=== PATIENT | female | born 1950 | race Caucasian/White ===

== ENCOUNTER 2017-08-01 01:42 | Emergency (ER) | payer MEDICARE, MEDICAID ==
[~2017-08-01] VITALS: Ht 160 cm; Wt 59.1 kg
[~2017-08-01 01:42] MED LIST: ATEN50TA PO; LEVO25TA2 PO; LISI1TAB13 PO; LORA-269 PO; OMEP20CA10 PO
[2017-08-01] MEDS ORDERED: ondansetron 4mg rapidly disintigrating tab PO ONE (01:50)
[2017-08-01] MEDS ORDERED: mag hydrox/Alum hydrox/simeth 30ml oral suspension PO ONE (01:50)
[2017-08-01] MEDS ORDERED: famotidine 20mg tablet PO ONE (01:50)
[2017-08-01] MEDS ORDERED: HYDROcodone/acetaminophen 5mg/325mg tablet PO ONE (01:50)
[2017-08-01 02:26] LABS: BASOPHILS % (AUTO) 0.1 % (0-1); EOSINOPHILS # (AUTO) 0.1 X10'3 (0-0.9); EOSINOPHILS % (AUTO) 0.8 % (0-6); HEMATOCRIT 40.2 % (35.0-45.0); HEMOGLOBIN 13.3 g/dl (12.0-16.0); LYMPHOCYTES # (AUTO) 1.3 X10'3 (1.1-4.8); LYMPHOCYTES % (AUTO) 13.5 % (21-51); MEAN CORPUSCULAR HEMOGLOBIN 30.5 PG (27.0-31.0); MEAN CORPUSCULAR VOLUME 92.4 FL (78-98); MEAN PLATELET VOLUME 7.8 FL (7.4-10.4); MONOCYTES # (AUTO) 0.3 X10'3 (0-0.9); MONOCYTES % (AUTO) 3.6 % (2-12); NEUTROPHILS # (AUTO) 7.9 X10'3 (1.8-7.7); PLATELET COUNT 416 X10'3 (140-440); RED BLOOD COUNT 4.35 X10'6 (4.20-5.60); RED CELL DISTRIBUTION WIDTH 15.8 % (11.5-14.5); WHITE BLOOD COUNT 9.6 X10'3 (4.5-11.0)
[2017-08-01 02:45] LABS: ALANINE AMINOTRANSFERASE 50 U/L (12-78); ALBUMIN 3.2 G/DL (3.4-5.0); ALBUMIN/GLOBULIN RATIO 0.6 (1.1-1.5); ALKALINE PHOSPHATASE 132 IU/L (46-116); ANION GAP 12 (8-16); ASPARTATE AMINO TRANSFERASE 52 U/L (10-37); BILIRUBIN,TOTAL 0.4 MG/DL (0.1-1.0); BLOOD UREA NITROGEN 12 MG/DL (7-18); CALCIUM 9.2 MG/DL (8.5-10.1); CHLORIDE 95 MMOL/L (99-107); GLUCOSE 125 MG/DL (70-104); LIPASE 248 U/L (73-393); POTASSIUM 3.5 MMOL/L (3.5-5.1); SODIUM 131 MMOL/L (135-145); TOTAL CARBON DIOXIDE 23.9 MMOL/L (24-32); TOTAL PROTEIN 8.2 G/DL (6.4-8.2); TROPONIN I < 0.04 NG/ML (0.0-0.05); eGFR 55 ML/MIN
[2017-08-01] MEDS ORDERED: proCHLORperazine 10 MG/2 ml inj IV ONE (02:45)
[2017-08-01] MEDS ORDERED: normal saline 1000ml 1,000 ML IV ONE (02:50)
[2017-08-01 02:59] LABS: CLARITY,URINE Clear (Clear); COLOR,URINE Yellow (Yellow); GLUCOSE, URINE Negative (Neg); KETONES,URINE 40 mg/dl (Neg); LEUKOCYTE ESTERASE ,URINE Small (Neg); NITRITES, URINE Negative (Neg); OCCULT BLOOD,URINE Negative (Neg); PROTEIN,URINE 30 mg/dl (Neg); UA COLLECTION TYPE STRAIGHT CATH
[2017-08-01 03:07] LABS: AMORPHOUS PHOSPHATES 4+; BACTERIA,URINE FEW /HPF (Neg); MUCUS STRANDS NONE SEEN /LPF (Neg); RBC,URINE NONE SEEN /HPF (0-2); SQUAMOUS EPITHELIAL CELL,UR NONE SEEN /LPF (FEW); WBC,URINE 0-4 /HPF (0-4)
[2017-08-01 05:09] VITALS: BP 190/109
== END 2017-08-01 05:12 | disposition home or self-care (01) ==
LOC: ER 01:42
DX: R10.84 Generalized abdominal pain (principal); R11.2 Nausea with vomiting, unspecified; I11.0 Hypertensive heart disease with heart failure; I50.9 Heart failure, unspecified; K21.9 Gastro-esophageal reflux disease without esophagitis; F32.9 Major depressive disorder, single episode, unspecified; E78.00 Pure hypercholesterolemia, unspecified; E03.9 Hypothyroidism, unspecified; M19.90 Unspecified osteoarthritis, unspecified site; F12.10 Cannabis abuse, uncomplicated; Z86.73 Personal history of transient ischemic attack (TIA), and cerebral infarction without residual deficits; Z90.49 Acquired absence of other specified parts of digestive tract; Z88.8 Allergy status to other drugs, medicaments and biological substances; Z79.899 Other long term (current) drug therapy
CPT/HCPCS: 36415; 71045; 74176; 80053; 81001; 83605; 83690; 84484; 85025; 87088; 93005; 96361; 96374; 99285; J0780; J7030

== ENCOUNTER 2017-08-31 14:00 | Inpatient (IN) | payer MEDICARE, MEDICAID ==
[~2017-08-31] VITALS: Ht 160 cm; Wt 56.8 kg
[2017-08-31] MEDS ORDERED: LORazepam 2 mg/ml vial IM ONE (15:10)
[2017-08-31] MEDS ORDERED: CLIN-80 PO (16:13)
[2017-08-31 16:29] LABS: BASOPHILS % (AUTO) 0.1 % (0-1); EOSINOPHILS % (AUTO) 0.1 % (0-6); HEMATOCRIT 37.7 % (35.0-45.0); HEMOGLOBIN 12.7 g/dl (12.0-16.0); LYMPHOCYTES # (AUTO) 0.3 X10'3 (1.1-4.8); LYMPHOCYTES % (AUTO) 2.9 % (21-51); MEAN CORPUSCULAR HEMOGLOBIN 31.3 PG (27.0-31.0); MEAN CORPUSCULAR HGB CONC 33.8 % (33.0-36.5); MEAN CORPUSCULAR VOLUME 92.8 FL (78-98); MEAN PLATELET VOLUME 9.3 FL (7.4-10.4); MONOCYTES # (AUTO) 0.2 X10'3 (0-0.9); NEUTROPHILS % (AUTO) 94.9 % (42-75); PLATELET COUNT 127 X10'3 (140-440); RED BLOOD COUNT 4.07 X10'6 (4.20-5.60); RED CELL DISTRIBUTION WIDTH 16.2 % (11.5-14.5); WHITE BLOOD COUNT 11.6 X10'3 (4.5-11.0)
[2017-08-31 16:39] LABS: INR 1.1 INR; PARTIAL THROMBOPLASTIN TIME 31 SECONDS (22-32); PROTHROMBIN TIME 11.8 SECONDS (9.0-12.0)
[2017-08-31 16:43] LABS: ALANINE AMINOTRANSFERASE 39 U/L (12-78); ALBUMIN 2.4 G/DL (3.4-5.0); ALBUMIN/GLOBULIN RATIO 0.6 (1.1-1.5); ALKALINE PHOSPHATASE 97 IU/L (46-116); ANION GAP 12 (8-16); ASPARTATE AMINO TRANSFERASE 38 U/L (10-37); BILIRUBIN,TOTAL 0.7 MG/DL (0.1-1.0); BLOOD UREA NITROGEN 37 MG/DL (7-18); CALCIUM 7.8 MG/DL (8.5-10.1); CHLORIDE 100 MMOL/L (99-107); CREATININE 2.18 MG/DL (0.40-0.90); GLUCOSE 85 MG/DL (70-104); POTASSIUM 4.6 MMOL/L (3.5-5.1); SODIUM 137 MMOL/L (135-145); TOTAL PROTEIN 6.5 G/DL (6.4-8.2); eGFR 22 ML/MIN
[2017-08-31] MEDS ORDERED: normal saline 1000ML IV soln IVB ONE ×3 (17:05→22:00)
[2017-08-31 17:20] LABS: TOTAL CELLS COUNTED 100
[2017-08-31 17:21] LABS: ANISOCYTOSIS 1+; PLATELET ESTIMATE DECREASED
[2017-08-31] MEDS ORDERED: dextrose 5%-1/2 normal saline 1,000 ML IV SCH (17:59)
[2017-08-31] MEDS ORDERED: magnesium 2GM in 50ml NS 50 ML IV PRN (18:00)
[2017-08-31] MEDS ORDERED: potassium Cl 40MEQ/NS 500ml 500 ML IV PRN ×2 (18:00)
[2017-08-31] MEDS ORDERED: magnesium 4gm in 100ml NS 100 ML IV PRN (18:00)
[2017-08-31] MEDS ORDERED: potassium Cl 20 mEq SR tablet PO PRN (18:00)
[2017-08-31] MEDS ORDERED: aspirin 325mg tablet PO ONE (18:00)
[2017-08-31] MEDS ORDERED: magnesium Cl slow-release 64mg tablet PO PRN (18:00)
[2017-08-31] MEDS ORDERED: gabapentin 300mg capsule PO ONE (18:00)
[2017-08-31] MEDS: morphine 2 MG/ML inj. syringe IV PRN (18:30)
[2017-08-31] MEDS ORDERED: vancomycin/NS 1 GM ADD-VANTAGE 250 ML IV SCH (20:00)
[2017-08-31] MEDS: atenolol 50mg tablet PO SCH (20:00)
[2017-08-31] MEDS: vancomycin/NS 1 GM ADD-VANTAGE 250 ML IV SCH (21:49)
[2017-08-31] MEDS: normal saline 1000ml 1,000 ML IV SCH (22:19)
[2017-08-31] MEDS: heparin, porcine 5000 units/ml vial SQ SCH (22:34)
[2017-08-31 22:58] LABS: CLARITY,URINE CLOUDY (Clear); COLOR,URINE AMBER (Yellow); GLUCOSE, URINE NEGATIVE (Neg); KETONES,URINE NEGATIVE (Neg); LEUKOCYTE ESTERASE ,URINE NEGATIVE (Neg); NITRITES, URINE NEGATIVE (Neg); OCCULT BLOOD,URINE SMALL (Neg); PH,URINE 5.5 (4.8-8.0); PROTEIN,URINE 30 mg/dl (Neg)
[2017-08-31 23:00] LABS: UA COLLECTION TYPE FOLEY CATH
[2017-08-31 23:06] LABS: BACTERIA,URINE NONE SEEN /HPF (Neg); MUCUS STRANDS NONE SEEN /LPF (Neg); RBC,URINE 0-2 /HPF (0-2); SQUAMOUS EPITHELIAL CELL,UR NONE SEEN /LPF (FEW); WBC,URINE 0-4 /HPF (0-4)
[2017-08-31 23:07] LABS: AMORPHOUS URATES 2+; TRANSITIONAL EPI CELLS,URINE MODERATE /HPF
[2017-08-31 23:31] LABS: TROPONIN I < 0.04 NG/ML (0.0-0.05)
[2017-08-31] MEDS ORDERED: NORepinephrine 8mg/ 250ml NS 250 ML IV PRN (23:59)
[2017-09-01 03:00] LABS: BASOPHILS % (AUTO) 0 % (0-1); EOSINOPHILS # (AUTO) 0.5 X10'3 (0-0.9); EOSINOPHILS % (AUTO) 6.7 % (0-6); HEMATOCRIT 31.4 % (35.0-45.0); HEMOGLOBIN 10.8 g/dl (12.0-16.0); LYMPHOCYTES # (AUTO) 0.3 X10'3 (1.1-4.8); LYMPHOCYTES % (AUTO) 3.7 % (21-51); MEAN CORPUSCULAR HEMOGLOBIN 31.5 PG (27.0-31.0); MEAN CORPUSCULAR HGB CONC 34.2 % (33.0-36.5); MEAN PLATELET VOLUME 9.4 FL (7.4-10.4); MONOCYTES # (AUTO) 0.2 X10'3 (0-0.9); NEUTROPHILS # (AUTO) 6.2 X10'3 (1.8-7.7); NEUTROPHILS % (AUTO) 86.6 % (42-75); PLATELET COUNT 99 X10'3 (140-440); RED BLOOD COUNT 3.42 X10'6 (4.20-5.60); WHITE BLOOD COUNT 7.1 X10'3 (4.5-11.0)
[2017-09-01 03:15] LABS: ALANINE AMINOTRANSFERASE 40 U/L (12-78); ALBUMIN 1.7 G/DL (3.4-5.0); ALBUMIN/GLOBULIN RATIO 0.5 (1.1-1.5); ALKALINE PHOSPHATASE 107 IU/L (46-116); ANION GAP 13 (8-16); ASPARTATE AMINO TRANSFERASE 72 U/L (10-37); BILIRUBIN,TOTAL 0.8 MG/DL (0.1-1.0); BLOOD UREA NITROGEN 36 MG/DL (7-18); BUN/CREATININE RATIO 21.6 (6.6-38.0); CHLORIDE 106 MMOL/L (99-107); CHOL/HDL RATIO 9.1 (0.00-4.99); CHOLESTEROL 82 MG/DL (0-200); CREATININE 1.67 MG/DL (0.40-0.90); GLUCOSE 69 MG/DL (70-104); HDL CHOLESTEROL 9 MG/DL (35-60); LDL CHOLESTEROL 14 MG/DL (50-100); MAGNESIUM 2.7 MG/DL (1.5-2.4); POTASSIUM 3.6 MMOL/L (3.5-5.1); SODIUM 140 MMOL/L (135-145); TOTAL PROTEIN 5.2 G/DL (6.4-8.2); TRIGLYCERIDES 316 MG/DL (20-135); TROPONIN I < 0.04 NG/ML (0.0-0.05); eGFR 31 ML/MIN
[2017-09-01] MEDS: morphine 2 MG/ML inj. syringe IV PRN ×4 (03:43→23:34)
[2017-09-01] MEDS: normal saline 1000ml 1,000 ML IV SCH ×3 (06:34→22:07)
[2017-09-01] MEDS: K and/or MAG REPLACEMENT MC SCH (06:36)
[2017-09-01] MEDS: LORazepam 1 MG tablet PO PRN ×2 (06:38→22:04)
[2017-09-01] MEDS ORDERED: metoprolol tartrate 1mg/ml inj IV ONE (07:30)
[2017-09-01] MEDS: heparin, porcine 5000 units/ml vial SQ SCH ×2 (07:36→21:05)
[2017-09-01] MEDS: aspirin 325mg tablet PO SCH (07:36)
[2017-09-01] MEDS: atorvastatin 20mg tablet PO SCH (07:37)
[2017-09-01] MEDS: levoTHYROXINE 25mcg tablet PO SCH (07:37)
[2017-09-01] MEDS: pantoprazole 40mg Tablet.DR PO SCH (07:37)
[2017-09-01] MEDS: gabapentin 300mg capsule PO SCH (07:37)
[2017-09-01] MEDS: atenolol 50mg tablet PO SCH (07:38)
[2017-09-01] MEDS: cefTRIAXone 1g/NS 100ml IVPB 100 ML IV SCH (08:00)
[2017-09-01] MEDS ORDERED: non-formulary drug (Omeprazole 1 CAP) PO SCH (08:00)
[2017-09-01] MEDS ORDERED: cefTRIAXone 1g/NS 100ml IVPB 100 ML IV ONE (08:00)
[2017-09-01 14:01] LABS: TROPONIN I < 0.04 NG/ML (0.0-0.05)
[2017-09-01] MEDS: thiamine inj. 100 MG, MVI, adult No.4 with vit. K 10 ML in dextrose 5% water 500ml 489 ML IV SCH ×3 (14:48)
[2017-09-01] MEDS: lactobacillus rhamnosus 10,000 MMU CELLS/CAPSULE PO SCH (19:33)
[2017-09-01] MEDS: metoprolol tartrate 1mg/ml inj IV PRN ×2 (20:03→23:33)
[2017-09-01 21:15] VITALS: BP 107/57
[2017-09-01] MEDS: vancomycin/NS 1 GM ADD-VANTAGE 250 ML IV SCH (22:04)
[2017-09-01 23:00] VITALS: BP 118/65
[2017-09-01] MEDS: ondansetron/PF 4mg/2ml inj IV PRN (23:34)
[2017-09-02] VITALS (16 sets, daily range): BP systolic 100–124; BP diastolic 53–81
[2017-09-02] MEDS ORDERED: amiodarone 150mg/dext, iso-os 100 ML IV ONE (02:40)
[2017-09-02] MEDS: amiodarone/D5 360MG/200ML BAG 200 ML IV SCH ×3 (03:11→17:29)
[2017-09-02] MEDS: morphine 2 MG/ML inj. syringe IV PRN ×4 (04:55→23:29)
[2017-09-02] MEDS: ondansetron/PF 4mg/2ml inj IV PRN (04:55)
[2017-09-02] MEDS: metoprolol tartrate 1mg/ml inj IV PRN ×3 (05:08→22:34)
[2017-09-02 05:17] LABS: HEMATOCRIT 29.7 % (35.0-45.0); HEMOGLOBIN 10.1 g/dl (12.0-16.0); MEAN CORPUSCULAR VOLUME 91.3 FL (78-98); MEAN PLATELET VOLUME 9.3 FL (7.4-10.4); PLATELET COUNT 111 X10'3 (140-440); RED BLOOD COUNT 3.25 X10'6 (4.20-5.60); RED CELL DISTRIBUTION WIDTH 16.2 % (11.5-14.5); WHITE BLOOD COUNT 9.6 X10'3 (4.5-11.0)
[2017-09-02 05:34] LABS: ALANINE AMINOTRANSFERASE 38 U/L (12-78); ALBUMIN 1.4 G/DL (3.4-5.0); ALBUMIN/GLOBULIN RATIO 0.4 (1.1-1.5); ALKALINE PHOSPHATASE 154 IU/L (46-116); ANION GAP 9 (8-16); ASPARTATE AMINO TRANSFERASE 60 U/L (10-37); BILIRUBIN,TOTAL 0.9 MG/DL (0.1-1.0); BLOOD UREA NITROGEN 24 MG/DL (7-18); BUN/CREATININE RATIO 22.6 (6.6-38.0); CALCIUM 7.3 MG/DL (8.5-10.1); CHLORIDE 109 MMOL/L (99-107); CREATININE 1.06 MG/DL (0.40-0.90); GLUCOSE 89 MG/DL (70-104); MAGNESIUM 1.9 MG/DL (1.5-2.4); POTASSIUM 3.6 MMOL/L (3.5-5.1); SODIUM 140 MMOL/L (135-145); TOTAL CARBON DIOXIDE 21.6 MMOL/L (24-32); TOTAL PROTEIN 4.8 G/DL (6.4-8.2); eGFR 52 ML/MIN
[2017-09-02] MEDS: normal saline 1000ml 1,000 ML IV SCH ×2 (06:00→13:13)
[2017-09-02 07:12] LABS: ANISOCYTOSIS 1+; PLATELET ESTIMATE DECREASED; TOTAL CELLS COUNTED 100; TOXIC GRANULATION 2+
[2017-09-02 07:13] LABS: TOXIC VACUOLATION 1+
[2017-09-02] MEDS: K and/or MAG REPLACEMENT MC SCH (08:00)
[2017-09-02] MEDS: heparin, porcine 5000 units/ml vial SQ SCH ×3 (08:00→23:26)
[2017-09-02] MEDS: atorvastatin 20mg tablet PO SCH (08:00)
[2017-09-02] MEDS: levoTHYROXINE 25mcg tablet PO SCH (08:46)
[2017-09-02] MEDS: cefTRIAXone 1g/NS 100ml IVPB 100 ML IV SCH (08:46)
[2017-09-02] MEDS: pantoprazole 40mg Tablet.DR PO SCH (08:47)
[2017-09-02] MEDS: lactobacillus rhamnosus 10,000 MMU CELLS/CAPSULE PO SCH ×2 (08:47→17:24)
[2017-09-02] MEDS: aspirin 325mg tablet PO SCH (08:47)
[2017-09-02] MEDS: gabapentin 300mg capsule PO SCH (08:57)
[2017-09-02] MEDS: thiamine inj. 100 MG, MVI, adult No.4 with vit. K 10 ML in dextrose 5% water 500ml 489 ML IV SCH ×3 (10:37)
[2017-09-02] MEDS: vancomycin/NS 1 GM ADD-VANTAGE 250 ML IV SCH (20:41)
[2017-09-03] VITALS (14 sets, daily range): BP systolic 109–130; BP diastolic 60–92
[2017-09-03] MEDS: metoprolol tartrate 1mg/ml inj IV PRN ×2 (01:11→07:45)
[2017-09-03] MEDS: LORazepam 1 MG tablet PO PRN ×2 (04:34→21:39)
[2017-09-03 04:54] LABS: ALANINE AMINOTRANSFERASE 34 U/L (12-78); ALBUMIN 1.4 G/DL (3.4-5.0); ALBUMIN/GLOBULIN RATIO 0.4 (1.1-1.5); ALKALINE PHOSPHATASE 194 IU/L (46-116); ANION GAP 9 (8-16); ASPARTATE AMINO TRANSFERASE 41 U/L (10-37); BILIRUBIN,TOTAL 0.9 MG/DL (0.1-1.0); BLOOD UREA NITROGEN 22 MG/DL (7-18); CALCIUM 7.8 MG/DL (8.5-10.1); CHLORIDE 106 MMOL/L (99-107); GLUCOSE 92 MG/DL (70-104); MAGNESIUM 1.7 MG/DL (1.5-2.4); POTASSIUM 3.4 MMOL/L (3.5-5.1); SODIUM 138 MMOL/L (135-145); TOTAL CARBON DIOXIDE 23.5 MMOL/L (24-32); TOTAL PROTEIN 4.8 G/DL (6.4-8.2); eGFR 50 ML/MIN
[2017-09-03] MEDS: amiodarone/D5 360MG/200ML BAG 200 ML IV SCH ×2 (05:08→17:38)
[2017-09-03 05:28] LABS: BASOPHILS % (AUTO) 0 % (0-1); EOSINOPHILS % (AUTO) 0.2 % (0-6); HEMATOCRIT 29.5 % (35.0-45.0); HEMOGLOBIN 10.2 g/dl (12.0-16.0); LYMPHOCYTES # (AUTO) 0.6 X10'3 (1.1-4.8); LYMPHOCYTES % (AUTO) 3.5 % (21-51); MEAN CORPUSCULAR HGB CONC 34.6 % (33.0-36.5); MEAN CORPUSCULAR VOLUME 89.8 FL (78-98); MEAN PLATELET VOLUME 9.5 FL (7.4-10.4); MONOCYTES # (AUTO) 0.2 X10'3 (0-0.9); MONOCYTES % (AUTO) 1.1 % (2-12); NEUTROPHILS # (AUTO) 16.2 X10'3 (1.8-7.7); NEUTROPHILS % (AUTO) 95.2 % (42-75); PLATELET COUNT 123 X10'3 (140-440); RED BLOOD COUNT 3.29 X10'6 (4.20-5.60); RED CELL DISTRIBUTION WIDTH 16.9 % (11.5-14.5)
[2017-09-03 07:35] LABS: PLATELET ESTIMATE DECREASED; TOTAL CELLS COUNTED 100
[2017-09-03 07:36] LABS: ANISOCYTOSIS 1+; TOXIC GRANULATION 2+
[2017-09-03] MEDS: HYDROchlorothiazide 12.5mg capsule PO SCH (08:00)
[2017-09-03] MEDS: citalopram 20mg tablet PO SCH (08:00)
[2017-09-03] MEDS: atorvastatin 20mg tablet PO SCH (08:00)
[2017-09-03] MEDS: K and/or MAG REPLACEMENT MC SCH (08:00)
[2017-09-03] MEDS: lisinopril 5mg tablet PO SCH (08:03)
[2017-09-03] MEDS: atenolol 50mg tablet PO SCH (08:03)
[2017-09-03] MEDS: aspirin 325mg tablet PO SCH (08:03)
[2017-09-03] MEDS: pantoprazole 40mg Tablet.DR PO SCH (08:04)
[2017-09-03] MEDS: gabapentin 300mg capsule PO SCH (08:04)
[2017-09-03] MEDS: lactobacillus rhamnosus 10,000 MMU CELLS/CAPSULE PO SCH ×2 (08:04→17:33)
[2017-09-03] MEDS: levoTHYROXINE 25mcg tablet PO SCH (08:04)
[2017-09-03] MEDS: cefTRIAXone 1g/NS 100ml IVPB 100 ML IV SCH (08:05)
[2017-09-03] MEDS: potassium Cl 20 mEq SR tablet PO PRN ×3 (08:05→17:35)
[2017-09-03] MEDS: morphine 2 MG/ML inj. syringe IV PRN ×3 (08:06→19:23)
[2017-09-03] MEDS: thiamine inj. 100 MG, MVI, adult No.4 with vit. K 10 ML in dextrose 5% water 500ml 489 ML IV SCH ×3 (09:37)
[2017-09-03 15:16] LABS: ALANINE AMINOTRANSFERASE 34 U/L (12-78); ALBUMIN 1.4 G/DL (3.4-5.0); ALBUMIN/GLOBULIN RATIO 0.4 (1.1-1.5); ALKALINE PHOSPHATASE 213 IU/L (46-116); ASPARTATE AMINO TRANSFERASE 40 U/L (10-37); BILIRUBIN,DIRECT 0.6 MG/DL (0-0.3); BILIRUBIN,TOTAL 0.8 MG/DL (0.1-1.0); TOTAL PROTEIN 5.2 G/DL (6.4-8.2)
[2017-09-03] MEDS: piperacillin/tazo 3.375gm/50ml 50 ML IV SCH (15:38)
[2017-09-03] MEDS: mag hydrox/Alum hydrox/simeth 30ml oral suspension PO PRN ×2 (16:13→21:45)
[2017-09-03] MEDS ORDERED: VANCOMYCIN LEVEL IV NR (20:30)
[2017-09-03] MEDS: amiodarone 200mg tablet PO SCH (21:37)
[2017-09-03] MEDS: vancomycin/NS 1 GM ADD-VANTAGE 250 ML IV SCH (21:37)
[2017-09-03] MEDS: heparin, porcine 5000 units/ml vial SQ SCH (21:37)
[2017-09-04] MEDS: morphine 2 MG/ML inj. syringe IV PRN ×5 (00:09→19:53)
[2017-09-04] MEDS: piperacillin/tazo 3.375gm/50ml 50 ML IV SCH ×3 (00:09→16:05)
[2017-09-04 03:00] VITALS: BP 117/67
[2017-09-04 05:14] LABS: BASOPHILS % (AUTO) 0 % (0-1); EOSINOPHILS # (AUTO) 0.4 X10'3 (0-0.9); EOSINOPHILS % (AUTO) 2.1 % (0-6); HEMOGLOBIN 10.2 g/dl (12.0-16.0); LYMPHOCYTES # (AUTO) 0.7 X10'3 (1.1-4.8); LYMPHOCYTES % (AUTO) 3.3 % (21-51); MEAN CORPUSCULAR HEMOGLOBIN 30.7 PG (27.0-31.0); MEAN CORPUSCULAR HGB CONC 34.1 % (33.0-36.5); MEAN CORPUSCULAR VOLUME 90.1 FL (78-98); MEAN PLATELET VOLUME 9.6 FL (7.4-10.4); MONOCYTES # (AUTO) 0.3 X10'3 (0-0.9); MONOCYTES % (AUTO) 1.6 % (2-12); PLATELET COUNT 141 X10'3 (140-440); RED BLOOD COUNT 3.34 X10'6 (4.20-5.60); RED CELL DISTRIBUTION WIDTH 16.8 % (11.5-14.5); WHITE BLOOD COUNT 21.5 X10'3 (4.5-11.0)
[2017-09-04 05:42] LABS: ALANINE AMINOTRANSFERASE 29 U/L (12-78); ALBUMIN 1.3 G/DL (3.4-5.0); ALBUMIN/GLOBULIN RATIO 0.3 (1.1-1.5); ALKALINE PHOSPHATASE 230 IU/L (46-116); ANION GAP 10 (8-16); ASPARTATE AMINO TRANSFERASE 42 U/L (10-37); BLOOD UREA NITROGEN 23 MG/DL (7-18); BUN/CREATININE RATIO 22.5 (6.6-38.0); CALCIUM 8.1 MG/DL (8.5-10.1); CHLORIDE 107 MMOL/L (99-107); CREATININE 1.02 MG/DL (0.40-0.90); GLUCOSE 98 MG/DL (70-104); MAGNESIUM 1.5 MG/DL (1.5-2.4); POTASSIUM 4.1 MMOL/L (3.5-5.1); SODIUM 141 MMOL/L (135-145); TOTAL CARBON DIOXIDE 23.6 MMOL/L (24-32); TOTAL PROTEIN 5.1 G/DL (6.4-8.2); eGFR 54 ML/MIN
[2017-09-04 07:00] VITALS: BP 122/71
[2017-09-04] MEDS ORDERED: LACTOBACILLUS RHAMNOSUS GG 15 billion unit sprinkle caps PO SCH (07:30)
[2017-09-04 07:34] LABS: BANDS% (MANUAL) 7 % (0-10); MONOCYTES % (MANUAL) 3 % (2-12); NEUTROPHILS % (MANUAL) 87 % (42-75); TOTAL CELLS COUNTED 100
[2017-09-04 07:35] LABS: PLATELET ESTIMATE NORMAL; REACTIVE LYMPHOCYTES % 3 % (0-0)
[2017-09-04 07:37] LABS: ANISOCYTOSIS 1+; TOXIC GRANULATION 2+; TOXIC VACUOLATION 1+
[2017-09-04] MEDS: pantoprazole 40mg Tablet.DR PO SCH (07:53)
[2017-09-04] MEDS: levoTHYROXINE 25mcg tablet PO SCH (07:53)
[2017-09-04] MEDS: gabapentin 300mg capsule PO SCH (07:53)
[2017-09-04] MEDS: lactobacillus rhamnosus 10,000 MMU CELLS/CAPSULE PO SCH ×2 (07:53→17:35)
[2017-09-04] MEDS: atenolol 50mg tablet PO SCH (07:54)
[2017-09-04] MEDS: amiodarone 200mg tablet PO SCH ×2 (07:54→19:53)
[2017-09-04] MEDS: aspirin 325mg tablet PO SCH (07:54)
[2017-09-04] MEDS: lisinopril 5mg tablet PO SCH (07:54)
[2017-09-04] MEDS: citalopram 20mg tablet PO SCH (07:56)
[2017-09-04] MEDS: K and/or MAG REPLACEMENT MC SCH (08:00)
[2017-09-04] MEDS: heparin, porcine 5000 units/ml vial SQ SCH ×2 (08:00→19:52)
[2017-09-04] MEDS: atorvastatin 20mg tablet PO SCH (08:00)
[2017-09-04] MEDS: HYDROchlorothiazide 12.5mg capsule PO SCH (08:00)
[2017-09-04] MEDS: multivitamins, therapeutics tablet PO SCH (10:00)
[2017-09-04] MEDS: thiamine 100mg tablet PO SCH (10:00)
[2017-09-04 11:00] VITALS: BP 118/71
[2017-09-04] MEDS: LORazepam 1 MG tablet PO PRN ×2 (13:42→21:49)
[2017-09-04 15:00] VITALS: BP 123/79
[2017-09-04 19:00] VITALS: BP 123/72
[2017-09-04] MEDS ORDERED: VANCOMYCIN LEVEL IV ONE (20:30)
[2017-09-04] MEDS: vancomycin/NS 1 GM ADD-VANTAGE 250 ML IV SCH (21:50)
[2017-09-04] MEDS: acetaminophen 325mg tablet PO PRN (22:04)
[2017-09-04 23:00] VITALS: BP 134/76
[2017-09-05] MEDS: morphine 2 MG/ML inj. syringe IV PRN ×3 (00:13→09:28)
[2017-09-05] MEDS: piperacillin/tazo 3.375gm/50ml 50 ML IV SCH ×4 (00:13→20:17)
[2017-09-05 05:26] LABS: BASOPHILS % (AUTO) 0 % (0-1); EOSINOPHILS # (AUTO) 0.2 X10'3 (0-0.9); EOSINOPHILS % (AUTO) 1.1 % (0-6); HEMATOCRIT 29.7 % (35.0-45.0); HEMOGLOBIN 10.2 g/dl (12.0-16.0); LYMPHOCYTES % (AUTO) 4.5 % (21-51); MEAN CORPUSCULAR HEMOGLOBIN 30.9 PG (27.0-31.0); MEAN CORPUSCULAR HGB CONC 34.2 % (33.0-36.5); MEAN CORPUSCULAR VOLUME 90.3 FL (78-98); MEAN PLATELET VOLUME 9.5 FL (7.4-10.4); MONOCYTES # (AUTO) 0.6 X10'3 (0-0.9); MONOCYTES % (AUTO) 2.6 % (2-12); NEUTROPHILS # (AUTO) 19.8 X10'3 (1.8-7.7); NEUTROPHILS % (AUTO) 91.8 % (42-75); PLATELET COUNT 165 X10'3 (140-440); RED BLOOD COUNT 3.28 X10'6 (4.20-5.60); RED CELL DISTRIBUTION WIDTH 16.5 % (11.5-14.5); WHITE BLOOD COUNT 21.6 X10'3 (4.5-11.0)
[2017-09-05 05:46] LABS: ANION GAP 7 (8-16); BLOOD UREA NITROGEN 26 MG/DL (7-18); BUN/CREATININE RATIO 25.7 (6.6-38.0); CHLORIDE 108 MMOL/L (99-107); CREATININE 1.01 MG/DL (0.40-0.90); GLUCOSE 83 MG/DL (70-104); SODIUM 139 MMOL/L (135-145); TOTAL CARBON DIOXIDE 24.1 MMOL/L (24-32)
[2017-09-05 05:47] LABS: ALANINE AMINOTRANSFERASE 27 U/L (12-78); ALBUMIN 1.3 G/DL (3.4-5.0); ALBUMIN/GLOBULIN RATIO 0.3 (1.1-1.5); ALKALINE PHOSPHATASE 214 IU/L (46-116); ASPARTATE AMINO TRANSFERASE 44 U/L (10-37); BILIRUBIN,TOTAL 1.3 MG/DL (0.1-1.0); CALCIUM 7.9 MG/DL (8.5-10.1); MAGNESIUM 1.5 MG/DL (1.5-2.4); TOTAL PROTEIN 5.2 G/DL (6.4-8.2); eGFR 55 ML/MIN
[2017-09-05 06:18] LABS: CREATINE KINASE 10 U/L (26-192)
[2017-09-05] MEDS: furosemide 40mg/4ml inj IV SCH (09:32)
[2017-09-05] MEDS: pantoprazole 40mg Tablet.DR PO SCH (09:32)
[2017-09-05] MEDS: atorvastatin 20mg tablet PO SCH (09:33)
[2017-09-05] MEDS: thiamine 100mg tablet PO SCH (09:34)
[2017-09-05] MEDS: heparin, porcine 5000 units/ml vial SQ SCH ×2 (09:35→20:17)
[2017-09-05] MEDS: lactobacillus rhamnosus 10,000 MMU CELLS/CAPSULE PO SCH ×2 (09:35→17:30)
[2017-09-05] MEDS: citalopram 20mg tablet PO SCH (09:35)
[2017-09-05] MEDS: amiodarone 200mg tablet PO SCH ×2 (09:35→20:17)
[2017-09-05] MEDS: gabapentin 300mg capsule PO SCH ×2 (09:36→20:17)
[2017-09-05] MEDS: levoTHYROXINE 25mcg tablet PO SCH (09:36)
[2017-09-05] MEDS: atenolol 50mg tablet PO SCH (09:36)
[2017-09-05] MEDS: lisinopril 5mg tablet PO SCH (09:37)
[2017-09-05] MEDS: aspirin 325mg tablet PO SCH (09:37)
[2017-09-05] MEDS: multivitamins, therapeutics tablet PO SCH (09:37)
[2017-09-05] MEDS: K and/or MAG REPLACEMENT MC SCH (10:05)
[2017-09-05 11:00] VITALS: BP 121/74
[2017-09-05] MEDS: LORazepam 1 MG tablet PO PRN ×2 (11:30→23:44)
[2017-09-05 15:00] VITALS: BP 122/71
[2017-09-05] MEDS ORDERED: LORazepam 2 mg/ml vial IV ONE (15:10)
[2017-09-05] MEDS ORDERED: diazepam 5mg tablet PO ONE (15:10)
[2017-09-05] MEDS: morphine 4 MG/ML inj SYRINge IV PRN ×2 (16:16→20:24)
[2017-09-05] MEDS: mag hydrox/Alum hydrox/simeth 30ml oral suspension PO PRN (20:17)
[2017-09-05] MEDS ORDERED: VANCOMYCIN LEVEL IV ONE (20:30)
[2017-09-05] MEDS: vancomycin/NS 1 GM ADD-VANTAGE 250 ML IV SCH (21:48)
[2017-09-05 22:00] VITALS: BP 127/75
[2017-09-05] MEDS: metoprolol tartrate 1mg/ml inj IV PRN (23:45)
[2017-09-06] MEDS: piperacillin/tazo 3.375gm/50ml 50 ML IV SCH ×4 (01:56→19:40)
[2017-09-06] MEDS: metoprolol tartrate 1mg/ml inj IV PRN ×2 (01:56→04:34)
[2017-09-06 02:00] VITALS: BP 130/83
[2017-09-06] MEDS: morphine 4 MG/ML inj SYRINge IV PRN ×5 (02:04→21:17)
[2017-09-06 05:41] LABS: BASOPHILS % (AUTO) 0 % (0-1); EOSINOPHILS # (AUTO) 0.1 X10'3 (0-0.9); EOSINOPHILS % (AUTO) 0.3 % (0-6); HEMATOCRIT 29.8 % (35.0-45.0); HEMOGLOBIN 10.2 g/dl (12.0-16.0); LYMPHOCYTES # (AUTO) 1.3 X10'3 (1.1-4.8); LYMPHOCYTES % (AUTO) 5.7 % (21-51); MEAN CORPUSCULAR HEMOGLOBIN 30.9 PG (27.0-31.0); MEAN CORPUSCULAR HGB CONC 34.1 % (33.0-36.5); MEAN CORPUSCULAR VOLUME 90.6 FL (78-98); MEAN PLATELET VOLUME 9.3 FL (7.4-10.4); MONOCYTES # (AUTO) 0.6 X10'3 (0-0.9); MONOCYTES % (AUTO) 2.7 % (2-12); NEUTROPHILS # (AUTO) 20.8 X10'3 (1.8-7.7); NEUTROPHILS % (AUTO) 91.3 % (42-75); PLATELET COUNT 228 X10'3 (140-440); RED BLOOD COUNT 3.29 X10'6 (4.20-5.60); RED CELL DISTRIBUTION WIDTH 16.8 % (11.5-14.5); WHITE BLOOD COUNT 22.8 X10'3 (4.5-11.0)
[2017-09-06 05:42] LABS: ALBUMIN 1.3 G/DL (3.4-5.0); ANION GAP 9 (8-16); BLOOD UREA NITROGEN 22 MG/DL (7-18); BUN/CREATININE RATIO 24.7 (6.6-38.0); CALCIUM 7.5 MG/DL (8.5-10.1); CHLORIDE 105 MMOL/L (99-107); CREATININE 0.89 MG/DL (0.40-0.90); GLUCOSE 95 MG/DL (70-104); MAGNESIUM 1.7 MG/DL (1.5-2.4); SODIUM 139 MMOL/L (135-145); TOTAL CARBON DIOXIDE 25.4 MMOL/L (24-32); eGFR 63 ML/MIN
[2017-09-06 06:00] VITALS: BP 119/83
[2017-09-06 07:21] LABS: BANDS% (MANUAL) 2 % (0-10); EOSINOPHILS % (MANUAL) 1 % (0-6); LYMPHOCYTES % (MANUAL) 2 % (21-51); METAMYLEOCYTES% (MANUAL) 1 % (0-0); MONOCYTES % (MANUAL) 4 % (2-12); MYELOCYTES % (MANUAL) 1 % (0-0); NEUTROPHILS % (MANUAL) 87 % (42-75); PLATELET ESTIMATE NORMAL; PROMYELOCYTES % (MANUAL) 2 % (0-0); TOTAL CELLS COUNTED 100
[2017-09-06 07:22] LABS: ANISOCYTOSIS 1+; TOXIC GRANULATION 1+; TOXIC VACUOLATION 1+
[2017-09-06] MEDS: furosemide 40mg/4ml inj IV SCH (08:00)
[2017-09-06] MEDS: atorvastatin 20mg tablet PO SCH (08:00)
[2017-09-06] MEDS: multivitamins, therapeutics tablet PO SCH (08:00)
[2017-09-06] MEDS: heparin, porcine 5000 units/ml vial SQ SCH ×2 (08:00→19:40)
[2017-09-06] MEDS: thiamine 100mg tablet PO SCH (08:00)
[2017-09-06] MEDS: aspirin 325mg tablet PO SCH (08:23)
[2017-09-06] MEDS: levoTHYROXINE 25mcg tablet PO SCH (08:24)
[2017-09-06] MEDS: lisinopril 5mg tablet PO SCH (08:24)
[2017-09-06] MEDS: citalopram 20mg tablet PO SCH (08:24)
[2017-09-06] MEDS: gabapentin 300mg capsule PO SCH ×2 (08:24→19:37)
[2017-09-06] MEDS: amiodarone 200mg tablet PO SCH ×2 (08:24→19:37)
[2017-09-06] MEDS: atenolol 50mg tablet PO SCH (08:25)
[2017-09-06] MEDS: lactobacillus rhamnosus 10,000 MMU CELLS/CAPSULE PO SCH ×2 (08:25→17:10)
[2017-09-06] MEDS: pantoprazole 40mg Tablet.DR PO SCH (08:25)
[2017-09-06] MEDS ORDERED: iohexol 300mg/ml 100ml inj. ONE (09:23)
[2017-09-06] MEDS: K and/or MAG REPLACEMENT MC SCH (09:35)
[2017-09-06] MEDS: LORazepam 1 MG tablet PO PRN ×2 (09:56→19:40)
[2017-09-06] MEDS: VANCOMYCIN 750MG IV in NS 250 ML IV SCH ×2 (10:54→21:18)
[2017-09-06 11:00] VITALS: BP 112/64
[2017-09-06] MEDS: magnesium hydroxide 30ml (MOM) UD suspension PO PRN (13:00)
[2017-09-06 15:00] VITALS: BP 112/81
[2017-09-06 18:00] VITALS: BP 111/71
[2017-09-06 22:00] VITALS: BP 122/71
[2017-09-07 02:00] VITALS: BP 125/68
[2017-09-07] MEDS: morphine 4 MG/ML inj SYRINge IV PRN ×4 (02:38→20:03)
[2017-09-07] MEDS: piperacillin/tazo 3.375gm/50ml 50 ML IV SCH ×4 (02:38→20:03)
[2017-09-07] MEDS: LORazepam 1 MG tablet PO PRN ×2 (04:23→22:02)
[2017-09-07 05:26] LABS: BASOPHILS % (AUTO) 0.1 % (0-1); EOSINOPHILS # (AUTO) 0.3 X10'3 (0-0.9); EOSINOPHILS % (AUTO) 1.8 % (0-6); HEMATOCRIT 26.7 % (35.0-45.0); LYMPHOCYTES # (AUTO) 1.5 X10'3 (1.1-4.8); LYMPHOCYTES % (AUTO) 8.2 % (21-51); MEAN CORPUSCULAR HEMOGLOBIN 30.5 PG (27.0-31.0); MEAN CORPUSCULAR HGB CONC 33.8 % (33.0-36.5); MEAN CORPUSCULAR VOLUME 90.3 FL (78-98); MEAN PLATELET VOLUME 8.5 FL (7.4-10.4); MONOCYTES # (AUTO) 0.4 X10'3 (0-0.9); MONOCYTES % (AUTO) 2.3 % (2-12); NEUTROPHILS # (AUTO) 16.3 X10'3 (1.8-7.7); NEUTROPHILS % (AUTO) 87.6 % (42-75); PLATELET COUNT 240 X10'3 (140-440); RED BLOOD COUNT 2.95 X10'6 (4.20-5.60); RED CELL DISTRIBUTION WIDTH 16.2 % (11.5-14.5); WHITE BLOOD COUNT 18.6 X10'3 (4.5-11.0)
[2017-09-07 05:35] LABS: ALBUMIN 1.3 G/DL (3.4-5.0); ANION GAP 6 (8-16); BLOOD UREA NITROGEN 20 MG/DL (7-18); CALCIUM 7.8 MG/DL (8.5-10.1); CHLORIDE 106 MMOL/L (99-107); CREATININE 0.91 MG/DL (0.40-0.90); MAGNESIUM 1.6 MG/DL (1.5-2.4); POTASSIUM 4.2 MMOL/L (3.5-5.1); SODIUM 139 MMOL/L (135-145); TOTAL CARBON DIOXIDE 27.3 MMOL/L (24-32); eGFR 62 ML/MIN
[2017-09-07 05:37] LABS: GLUCOSE 96 MG/DL (70-104)
[2017-09-07 06:00] VITALS: BP 121/68
[2017-09-07] MEDS ORDERED: LORazepam 2 mg/ml vial IV PRN (07:05)
[2017-09-07] MEDS ORDERED: diazepam 5mg tablet PO PRN (07:05)
[2017-09-07] MEDS: gabapentin 300mg capsule PO SCH ×2 (07:27→20:05)
[2017-09-07] MEDS: lisinopril 5mg tablet PO SCH (07:28)
[2017-09-07] MEDS: amiodarone 200mg tablet PO SCH ×2 (07:28→20:04)
[2017-09-07] MEDS: atenolol 50mg tablet PO SCH (07:28)
[2017-09-07] MEDS: levoTHYROXINE 25mcg tablet PO SCH (07:28)
[2017-09-07] MEDS: pantoprazole 40mg Tablet.DR PO SCH (07:29)
[2017-09-07] MEDS: citalopram 20mg tablet PO SCH (07:29)
[2017-09-07] MEDS: lactobacillus rhamnosus 10,000 MMU CELLS/CAPSULE PO SCH ×2 (07:29→17:22)
[2017-09-07] MEDS: atorvastatin 20mg tablet PO SCH (07:33)
[2017-09-07] MEDS: furosemide 40mg/4ml inj IV SCH (07:33)
[2017-09-07] MEDS: thiamine 100mg tablet PO SCH (07:38)
[2017-09-07] MEDS: multivitamins, therapeutics tablet PO SCH (07:38)
[2017-09-07] MEDS: heparin, porcine 5000 units/ml vial SQ SCH ×2 (07:38→20:06)
[2017-09-07] MEDS: K and/or MAG REPLACEMENT MC SCH (07:39)
[2017-09-07] MEDS: aspirin 325mg tablet PO SCH (07:40)
[2017-09-07 11:00] VITALS: BP 113/62
[2017-09-07] MEDS: VANCOMYCIN 750MG IV in NS 250 ML IV SCH ×2 (14:12→22:03)
[2017-09-07 15:00] VITALS: BP 115/69
[2017-09-07 18:00] VITALS: BP 117/63
[2017-09-07] MEDS ORDERED: VANCOMYCIN LEVEL IV ONE (19:30)
[2017-09-07] MEDS: acetaminophen 325mg tablet PO PRN (20:52)
[2017-09-08] MEDS: morphine 2 MG/ML inj. syringe IV PRN ×6 (00:09→21:27)
[2017-09-08 02:00] VITALS: BP 121/63
[2017-09-08] MEDS: piperacillin/tazo 3.375gm/50ml 50 ML IV SCH ×4 (02:20→19:47)
[2017-09-08 07:00] VITALS: BP 137/73
[2017-09-08] MEDS: atenolol 50mg tablet PO SCH (07:49)
[2017-09-08] MEDS: amiodarone 200mg tablet PO SCH ×4 (07:50→19:46)
[2017-09-08] MEDS: gabapentin 300mg capsule PO SCH ×2 (07:50→19:46)
[2017-09-08] MEDS: levoTHYROXINE 25mcg tablet PO SCH (07:50)
[2017-09-08] MEDS: lisinopril 5mg tablet PO SCH (07:50)
[2017-09-08] MEDS: LORazepam 1 MG tablet PO PRN ×3 (07:50→19:46)
[2017-09-08] MEDS: atorvastatin 20mg tablet PO SCH (07:50)
[2017-09-08] MEDS: thiamine 100mg tablet PO SCH (07:50)
[2017-09-08] MEDS: aspirin 325mg tablet PO SCH (07:50)
[2017-09-08] MEDS: furosemide 40mg tablet PO SCH (07:50)
[2017-09-08] MEDS: lactobacillus rhamnosus 10,000 MMU CELLS/CAPSULE PO SCH ×2 (07:51→17:54)
[2017-09-08] MEDS: multivitamins, therapeutics tablet PO SCH (07:51)
[2017-09-08] MEDS: pantoprazole 40mg Tablet.DR PO SCH (07:51)
[2017-09-08] MEDS: citalopram 20mg tablet PO SCH (07:51)
[2017-09-08] MEDS: heparin, porcine 5000 units/ml vial SQ SCH ×2 (07:54→19:47)
[2017-09-08] MEDS: K and/or MAG REPLACEMENT MC SCH (08:00)
[2017-09-08 11:00] VITALS: BP 123/81
[2017-09-08 11:46] LABS: BASOPHILS % (AUTO) 0.1 % (0-1); EOSINOPHILS # (AUTO) 0.3 X10'3 (0-0.9); EOSINOPHILS % (AUTO) 1.9 % (0-6); HEMATOCRIT 28.1 % (35.0-45.0); HEMOGLOBIN 9.6 g/dl (12.0-16.0); LYMPHOCYTES % (AUTO) 6.4 % (21-51); MEAN CORPUSCULAR VOLUME 91.3 FL (78-98); MONOCYTES # (AUTO) 0.4 X10'3 (0-0.9); MONOCYTES % (AUTO) 2.8 % (2-12); NEUTROPHILS # (AUTO) 13.5 X10'3 (1.8-7.7); NEUTROPHILS % (AUTO) 88.8 % (42-75); PLATELET COUNT 290 X10'3 (140-440); RED BLOOD COUNT 3.08 X10'6 (4.20-5.60); RED CELL DISTRIBUTION WIDTH 16.1 % (11.5-14.5); WHITE BLOOD COUNT 15.3 X10'3 (4.5-11.0)
[2017-09-08] MEDS: oxyCODONE IR 5mg (immed. release) tablet PO PRN ×2 (11:46→16:06)
[2017-09-08 12:01] LABS: VANCOMYCIN,TROUGH 16.5 UG/ML (6.0-14.0)
[2017-09-08] MEDS: VANCOMYCIN 750MG IV in NS 250 ML IV SCH ×2 (13:22→21:28)
[2017-09-08 15:00] VITALS: BP 124/73
[2017-09-08 18:00] VITALS: BP 122/77
[2017-09-08 18:35] LABS: ANION GAP 9 (8-16); BLOOD UREA NITROGEN 16 MG/DL (7-18); CHLORIDE 104 MMOL/L (99-107); CREATININE 0.84 MG/DL (0.40-0.90); POTASSIUM 4.2 MMOL/L (3.5-5.1); SODIUM 138 MMOL/L (135-145); TOTAL CARBON DIOXIDE 25.2 MMOL/L (24-32)
[2017-09-08 18:36] LABS: ALBUMIN 1.4 G/DL (3.4-5.0); CALCIUM 7.8 MG/DL (8.5-10.1); MAGNESIUM 1.6 MG/DL (1.5-2.4); eGFR 68 ML/MIN
[2017-09-08 18:45] LABS: GLUCOSE 121 MG/DL (70-104)
[2017-09-08 22:00] VITALS: BP 119/79
[2017-09-09] MEDS: LORazepam 1 MG tablet PO PRN ×2 (01:50→19:08)
[2017-09-09] MEDS: piperacillin/tazo 3.375gm/50ml 50 ML IV SCH ×4 (01:51→19:08)
[2017-09-09 02:00] VITALS: BP 126/88
[2017-09-09] MEDS: oxyCODONE IR 5mg (immed. release) tablet PO PRN ×2 (03:26→07:48)
[2017-09-09 06:00] VITALS: BP 128/81
[2017-09-09 06:31] LABS: BASOPHILS % (AUTO) 0.2 % (0-1); EOSINOPHILS # (AUTO) 0.2 X10'3 (0-0.9); EOSINOPHILS % (AUTO) 1.5 % (0-6); HEMATOCRIT 26.1 % (35.0-45.0); HEMOGLOBIN 8.9 g/dl (12.0-16.0); LYMPHOCYTES # (AUTO) 1.1 X10'3 (1.1-4.8); LYMPHOCYTES % (AUTO) 9.1 % (21-51); MEAN CORPUSCULAR HEMOGLOBIN 31.2 PG (27.0-31.0); MEAN CORPUSCULAR HGB CONC 33.9 % (33.0-36.5); MEAN CORPUSCULAR VOLUME 91.9 FL (78-98); MEAN PLATELET VOLUME 8.4 FL (7.4-10.4); MONOCYTES # (AUTO) 0.6 X10'3 (0-0.9); NEUTROPHILS # (AUTO) 10.4 X10'3 (1.8-7.7); NEUTROPHILS % (AUTO) 84.2 % (42-75); PLATELET COUNT 294 X10'3 (140-440); RED BLOOD COUNT 2.84 X10'6 (4.20-5.60); RED CELL DISTRIBUTION WIDTH 15.8 % (11.5-14.5); WHITE BLOOD COUNT 12.4 X10'3 (4.5-11.0)
[2017-09-09 06:33] LABS: ALBUMIN 1.4 G/DL (3.4-5.0); ANION GAP 5 (8-16); BLOOD UREA NITROGEN 13 MG/DL (7-18); BUN/CREATININE RATIO 15.1 (6.6-38.0); CALCIUM 7.8 MG/DL (8.5-10.1); CHLORIDE 104 MMOL/L (99-107); CREATININE 0.86 MG/DL (0.40-0.90); MAGNESIUM 1.4 MG/DL (1.5-2.4); POTASSIUM 3.9 MMOL/L (3.5-5.1); SODIUM 138 MMOL/L (135-145); TOTAL CARBON DIOXIDE 29.4 MMOL/L (24-32); eGFR 66 ML/MIN
[2017-09-09 06:34] LABS: GLUCOSE 100 MG/DL (70-104)
[2017-09-09] MEDS: gabapentin 300mg capsule PO SCH ×2 (07:48→19:08)
[2017-09-09] MEDS: pantoprazole 40mg Tablet.DR PO SCH (07:48)
[2017-09-09] MEDS: aspirin 325mg tablet PO SCH (07:49)
[2017-09-09] MEDS: amiodarone 200mg tablet PO SCH ×2 (07:49→19:08)
[2017-09-09] MEDS: citalopram 20mg tablet PO SCH (07:49)
[2017-09-09] MEDS: atenolol 50mg tablet PO SCH (07:49)
[2017-09-09] MEDS: thiamine 100mg tablet PO SCH (07:49)
[2017-09-09] MEDS: atorvastatin 20mg tablet PO SCH (07:49)
[2017-09-09] MEDS: furosemide 40mg tablet PO SCH (07:49)
[2017-09-09] MEDS: heparin, porcine 5000 units/ml vial SQ SCH ×2 (07:50→19:09)
[2017-09-09] MEDS: levoTHYROXINE 25mcg tablet PO SCH (07:50)
[2017-09-09] MEDS: lactobacillus rhamnosus 10,000 MMU CELLS/CAPSULE PO SCH ×2 (07:50→17:50)
[2017-09-09] MEDS: multivitamins, therapeutics tablet PO SCH (07:51)
[2017-09-09] MEDS: lisinopril 5mg tablet PO SCH (07:51)
[2017-09-09] MEDS: K and/or MAG REPLACEMENT MC SCH (08:00)
[2017-09-09] MEDS: VANCOMYCIN 750MG IV in NS 250 ML IV SCH ×2 (10:24→20:21)
[2017-09-09] MEDS: morphine 2 MG/ML inj. syringe IV PRN ×3 (10:25→22:51)
[2017-09-09 11:53] VITALS: BP 118/65
[2017-09-09] MEDS ORDERED: oxyCODONE IR 5mg (immed. release) tablet PO PRN (12:55)
[2017-09-09] MEDS ORDERED: magnesium 4gm in 100ml NS 100 ML IV PRN (13:25)
[2017-09-09] MEDS ORDERED: magnesium 2GM in 50ml NS 50 ML IV PRN (13:25)
[2017-09-09 16:48] VITALS: BP 131/74
[2017-09-09 18:00] VITALS: BP 125/74
[2017-09-09 22:00] VITALS: BP 122/73
[2017-09-10] VITALS (8 sets, daily range): BP systolic 113–128; BP diastolic 64–73
[2017-09-10] MEDS: piperacillin/tazo 3.375gm/50ml 50 ML IV SCH ×2 (01:02→08:11)
[2017-09-10] MEDS: LORazepam 1 MG tablet PO PRN ×3 (01:02→23:06)
[2017-09-10] MEDS: morphine 2 MG/ML inj. syringe IV PRN ×2 (04:20→08:24)
[2017-09-10 05:08] LABS: BASOPHILS % (AUTO) 0 % (0-1); EOSINOPHILS # (AUTO) 0.2 X10'3 (0-0.9); EOSINOPHILS % (AUTO) 1.5 % (0-6); HEMATOCRIT 23.4 % (35.0-45.0); LYMPHOCYTES # (AUTO) 1.4 X10'3 (1.1-4.8); LYMPHOCYTES % (AUTO) 13.3 % (21-51); MEAN CORPUSCULAR HEMOGLOBIN 31.6 PG (27.0-31.0); MEAN CORPUSCULAR HGB CONC 34.2 % (33.0-36.5); MEAN CORPUSCULAR VOLUME 92.3 FL (78-98); MEAN PLATELET VOLUME 8.4 FL (7.4-10.4); MONOCYTES # (AUTO) 0.6 X10'3 (0-0.9); MONOCYTES % (AUTO) 5.8 % (2-12); NEUTROPHILS # (AUTO) 8.6 X10'3 (1.8-7.7); NEUTROPHILS % (AUTO) 79.4 % (42-75); PLATELET COUNT 303 X10'3 (140-440); RED BLOOD COUNT 2.54 X10'6 (4.20-5.60); RED CELL DISTRIBUTION WIDTH 15.7 % (11.5-14.5); WHITE BLOOD COUNT 10.8 X10'3 (4.5-11.0)
[2017-09-10 05:33] LABS: ANION GAP 5 (8-16); BILIRUBIN,TOTAL 0.6 MG/DL (0.1-1.0); BLOOD UREA NITROGEN 14 MG/DL (7-18); BUN/CREATININE RATIO 15.9 (6.6-38.0); CALCIUM 7.4 MG/DL (8.5-10.1); CHLORIDE 102 MMOL/L (99-107); CREATININE 0.88 MG/DL (0.40-0.90); MAGNESIUM 1.3 MG/DL (1.5-2.4); POTASSIUM 3.8 MMOL/L (3.5-5.1); SODIUM 137 MMOL/L (135-145); TOTAL CARBON DIOXIDE 29.7 MMOL/L (24-32); eGFR 64 ML/MIN
[2017-09-10 05:34] LABS: ALANINE AMINOTRANSFERASE 29 U/L (12-78); ALBUMIN 1.3 G/DL (3.4-5.0); ALBUMIN/GLOBULIN RATIO 0.3 (1.1-1.5); ALKALINE PHOSPHATASE 130 IU/L (46-116); ASPARTATE AMINO TRANSFERASE 28 U/L (10-37); TOTAL PROTEIN 6.2 G/DL (6.4-8.2)
[2017-09-10 05:40] LABS: GLUCOSE 103 MG/DL (70-104)
[2017-09-10] MEDS: K and/or MAG REPLACEMENT MC SCH (06:58)
[2017-09-10] MEDS: atenolol 50mg tablet PO SCH (08:09)
[2017-09-10] MEDS: furosemide 40mg tablet PO SCH (08:09)
[2017-09-10] MEDS: aspirin 325mg tablet PO SCH (08:09)
[2017-09-10] MEDS: thiamine 100mg tablet PO SCH (08:09)
[2017-09-10] MEDS: magnesium Cl slow-release 64mg tablet PO PRN ×2 (08:09→19:43)
[2017-09-10] MEDS: amiodarone 200mg tablet PO SCH ×2 (08:09→19:43)
[2017-09-10] MEDS: gabapentin 300mg capsule PO SCH ×2 (08:09→19:43)
[2017-09-10] MEDS: multivitamins, therapeutics tablet PO SCH (08:10)
[2017-09-10] MEDS: atorvastatin 20mg tablet PO SCH (08:10)
[2017-09-10] MEDS: lactobacillus rhamnosus 10,000 MMU CELLS/CAPSULE PO SCH ×2 (08:10→16:57)
[2017-09-10] MEDS: pantoprazole 40mg Tablet.DR PO SCH (08:11)
[2017-09-10] MEDS: heparin, porcine 5000 units/ml vial SQ SCH ×2 (08:11→19:43)
[2017-09-10] MEDS: levoTHYROXINE 25mcg tablet PO SCH (08:11)
[2017-09-10] MEDS: citalopram 20mg tablet PO SCH (08:11)
[2017-09-10] MEDS: lisinopril 5mg tablet PO SCH (08:11)
[2017-09-10] MEDS: VANCOMYCIN 750MG IV in NS 250 ML IV SCH ×2 (09:59→19:42)
[2017-09-10] MEDS ORDERED: iohexol 300mg/ml 100ml inj. ONE (11:05)
[2017-09-10] MEDS: oxyCODONE IR 5mg (immed. release) tablet PO PRN ×4 (12:25→19:55)
[2017-09-10 15:37] LABS: OCCULT BLOOD STOOL NEGATIVE (Neg)
[2017-09-10] MEDS ORDERED: diphenoxylate/atropine tablet (Lomotil) PO ONE (16:00)
[2017-09-11] VITALS (8 sets, daily range): BP systolic 116–170; BP diastolic 59–108
[2017-09-11] MEDS: oxyCODONE IR 5mg (immed. release) tablet PO PRN ×4 (03:03→21:18)
[2017-09-11] MEDS: K and/or MAG REPLACEMENT MC SCH (08:00)
[2017-09-11] MEDS: multivitamins, therapeutics tablet PO SCH (08:28)
[2017-09-11] MEDS: furosemide 40mg tablet PO SCH (08:28)
[2017-09-11] MEDS: heparin, porcine 5000 units/ml vial SQ SCH ×2 (08:28→19:02)
[2017-09-11] MEDS: levoTHYROXINE 25mcg tablet PO SCH (08:28)
[2017-09-11] MEDS: citalopram 20mg tablet PO SCH (08:29)
[2017-09-11] MEDS: thiamine 100mg tablet PO SCH (08:29)
[2017-09-11] MEDS: pantoprazole 40mg Tablet.DR PO SCH (08:29)
[2017-09-11] MEDS: aspirin 325mg tablet PO SCH (08:29)
[2017-09-11] MEDS: atenolol 50mg tablet PO SCH (08:29)
[2017-09-11] MEDS: atorvastatin 20mg tablet PO SCH (08:29)
[2017-09-11] MEDS: gabapentin 300mg capsule PO SCH ×2 (08:29→19:02)
[2017-09-11] MEDS: amiodarone 200mg tablet PO SCH ×2 (08:29→19:02)
[2017-09-11] MEDS: lisinopril 5mg tablet PO SCH (08:29)
[2017-09-11] MEDS: lactobacillus rhamnosus 10,000 MMU CELLS/CAPSULE PO SCH ×2 (08:29→17:26)
[2017-09-11] MEDS: magnesium Cl slow-release 64mg tablet PO PRN ×2 (08:30→19:03)
[2017-09-11 08:43] LABS: BASOPHILS % (AUTO) 0.3 % (0-1); EOSINOPHILS # (AUTO) 0.1 X10'3 (0-0.9); EOSINOPHILS % (AUTO) 1.7 % (0-6); HEMATOCRIT 24.8 % (35.0-45.0); HEMOGLOBIN 8.4 g/dl (12.0-16.0); LYMPHOCYTES # (AUTO) 1.2 X10'3 (1.1-4.8); LYMPHOCYTES % (AUTO) 14.9 % (21-51); MEAN CORPUSCULAR HEMOGLOBIN 31.4 PG (27.0-31.0); MEAN CORPUSCULAR HGB CONC 33.8 % (33.0-36.5); MEAN CORPUSCULAR VOLUME 93.2 FL (78-98); MEAN PLATELET VOLUME 8.1 FL (7.4-10.4); MONOCYTES # (AUTO) 0.5 X10'3 (0-0.9); MONOCYTES % (AUTO) 6.9 % (2-12); NEUTROPHILS # (AUTO) 6.1 X10'3 (1.8-7.7); NEUTROPHILS % (AUTO) 76.2 % (42-75); PLATELET COUNT 324 X10'3 (140-440); RED BLOOD COUNT 2.66 X10'6 (4.20-5.60); RED CELL DISTRIBUTION WIDTH 16.5 % (11.5-14.5); WHITE BLOOD COUNT 7.9 X10'3 (4.5-11.0)
[2017-09-11 08:57] LABS: ALBUMIN 1.4 G/DL (3.4-5.0); ANION GAP 5 (8-16); BLOOD UREA NITROGEN 14 MG/DL (7-18); BUN/CREATININE RATIO 15.9 (6.6-38.0); CALCIUM 7.6 MG/DL (8.5-10.1); CHLORIDE 103 MMOL/L (99-107); CREATININE 0.88 MG/DL (0.40-0.90); POTASSIUM 3.9 MMOL/L (3.5-5.1); SODIUM 138 MMOL/L (135-145); TOTAL CARBON DIOXIDE 30.5 MMOL/L (24-32); eGFR 64 ML/MIN
[2017-09-11 09:11] LABS: GLUCOSE 92 MG/DL (70-104)
[2017-09-11] MEDS: LORazepam 1 MG tablet PO PRN ×2 (11:52→19:02)
[2017-09-11] MEDS: VANCOMYCIN 750MG IV in NS 250 ML IV SCH ×2 (11:52→20:21)
[2017-09-11] MEDS ORDERED: normal saline 1000ml 1,000 ML IV SCH (13:54)
[2017-09-11] MEDS ORDERED: simethicone 40mg/0.6ml oral drops 30ml MC ONE (13:55)
[2017-09-11] MEDS ORDERED: fentaNYL/PF 50MCG/1 ML 2ML syringe IV PRN (13:55)
[2017-09-11] MEDS ORDERED: LIDOcaine Viscous 15ml cup PO ONE (13:55)
[2017-09-11] MEDS ORDERED: MIDAZolam 5mg/ml 2ml vial IV PRN (13:55)
[2017-09-11] MEDS ORDERED: fentaNYL/PF 50MCG/1 ML 2ML syringe ONE (15:04)
[2017-09-11] MEDS ORDERED: MIDAZolam 5mg/ml 2ml vial ONE (15:05)
[2017-09-11] MEDS ORDERED: LIDOcaine Viscous 15ml cup ONE (15:05)
[2017-09-11] MEDS: nicotine 14mg patch - 24hr TD SCH (20:21)
[2017-09-11] MEDS ORDERED: temazepam 15mg capsule PO PRN (23:00)
[2017-09-11] MEDS: diphenoxylate/atropine tablet (Lomotil) PO PRN (23:13)
[2017-09-12] MEDS: diphenoxylate/atropine tablet (Lomotil) PO PRN ×3 (02:01→19:33)
[2017-09-12] MEDS: oxyCODONE IR 5mg (immed. release) tablet PO PRN ×5 (02:03→19:28)
[2017-09-12] MEDS: LORazepam 1 MG tablet PO PRN ×2 (02:09→19:28)
[2017-09-12 05:30] VITALS: BP 130/84
[2017-09-12 07:00] VITALS: BP 130/84
[2017-09-12] MEDS: multivitamins, therapeutics tablet PO SCH (07:40)
[2017-09-12] MEDS: levoTHYROXINE 25mcg tablet PO SCH (07:40)
[2017-09-12] MEDS: gabapentin 300mg capsule PO SCH ×2 (07:40→19:27)
[2017-09-12] MEDS: amiodarone 200mg tablet PO SCH ×2 (07:40→19:27)
[2017-09-12] MEDS: pantoprazole 40mg Tablet.DR PO SCH (07:40)
[2017-09-12] MEDS: atorvastatin 20mg tablet PO SCH (07:40)
[2017-09-12] MEDS: lactobacillus rhamnosus 10,000 MMU CELLS/CAPSULE PO SCH ×2 (07:40→16:52)
[2017-09-12] MEDS: lisinopril 5mg tablet PO SCH (07:40)
[2017-09-12] MEDS: citalopram 20mg tablet PO SCH (07:40)
[2017-09-12] MEDS: furosemide 40mg tablet PO SCH (07:40)
[2017-09-12] MEDS: thiamine 100mg tablet PO SCH (07:41)
[2017-09-12] MEDS: nicotine 14mg patch - 24hr TD SCH (07:41)
[2017-09-12] MEDS: K and/or MAG REPLACEMENT MC SCH (08:00)
[2017-09-12 11:00] VITALS: BP 120/60
[2017-09-12] MEDS: fluconazole 100mg tablet PO SCH (11:01)
[2017-09-12] MEDS: VANCOMYCIN 750MG IV in NS 250 ML IV SCH ×2 (11:01→22:20)
[2017-09-12] MEDS: atenolol 50mg tablet PO SCH (11:01)
[2017-09-12 11:07] VITALS: BP 120/65
[2017-09-12 15:00] VITALS: BP 128/67
[2017-09-12 23:00] VITALS: BP 132/78
[2017-09-13 03:00] VITALS: BP 128/81
[2017-09-13] MEDS: oxyCODONE IR 5mg (immed. release) tablet PO PRN ×4 (03:45→19:36)
[2017-09-13 06:00] VITALS: BP 130/74
[2017-09-13] MEDS: gabapentin 300mg capsule PO SCH ×2 (07:44→19:35)
[2017-09-13] MEDS: lisinopril 5mg tablet PO SCH (07:45)
[2017-09-13] MEDS: levoTHYROXINE 25mcg tablet PO SCH (07:45)
[2017-09-13] MEDS: multivitamins, therapeutics tablet PO SCH (07:45)
[2017-09-13] MEDS: thiamine 100mg tablet PO SCH (07:45)
[2017-09-13] MEDS: atenolol 50mg tablet PO SCH (07:45)
[2017-09-13] MEDS: lactobacillus rhamnosus 10,000 MMU CELLS/CAPSULE PO SCH ×2 (07:45→16:51)
[2017-09-13] MEDS: amiodarone 200mg tablet PO SCH ×2 (07:45→19:35)
[2017-09-13] MEDS: furosemide 40mg tablet PO SCH (07:45)
[2017-09-13] MEDS: pantoprazole 40mg Tablet.DR PO SCH (07:46)
[2017-09-13] MEDS: citalopram 20mg tablet PO SCH (07:46)
[2017-09-13] MEDS: atorvastatin 20mg tablet PO SCH (08:00)
[2017-09-13] MEDS: K and/or MAG REPLACEMENT MC SCH (08:00)
[2017-09-13] MEDS: fluconazole 100mg tablet PO SCH (08:02)
[2017-09-13] MEDS: nicotine 14mg patch - 24hr TD SCH (08:03)
[2017-09-13 08:29] LABS: BASOPHILS % (AUTO) 0.3 % (0-1); EOSINOPHILS # (AUTO) 0.1 X10'3 (0-0.9); EOSINOPHILS % (AUTO) 1.8 % (0-6); HEMATOCRIT 24.6 % (35.0-45.0); HEMOGLOBIN 8.4 g/dl (12.0-16.0); LYMPHOCYTES # (AUTO) 1.2 X10'3 (1.1-4.8); LYMPHOCYTES % (AUTO) 15.6 % (21-51); MEAN CORPUSCULAR HEMOGLOBIN 31.7 PG (27.0-31.0); MEAN CORPUSCULAR VOLUME 93.1 FL (78-98); MEAN PLATELET VOLUME 7.5 FL (7.4-10.4); MONOCYTES # (AUTO) 0.6 X10'3 (0-0.9); MONOCYTES % (AUTO) 7.7 % (2-12); NEUTROPHILS # (AUTO) 5.7 X10'3 (1.8-7.7); NEUTROPHILS % (AUTO) 74.6 % (42-75); PLATELET COUNT 460 X10'3 (140-440); RED BLOOD COUNT 2.65 X10'6 (4.20-5.60); RED CELL DISTRIBUTION WIDTH 16.4 % (11.5-14.5); WHITE BLOOD COUNT 7.7 X10'3 (4.5-11.0)
[2017-09-13 08:38] LABS: ALBUMIN 1.5 G/DL (3.4-5.0); ANION GAP 4 (8-16); BLOOD UREA NITROGEN 12 MG/DL (7-18); BUN/CREATININE RATIO 14.5 (6.6-38.0); CALCIUM 7.8 MG/DL (8.5-10.1); CHLORIDE 104 MMOL/L (99-107); CREATININE 0.83 MG/DL (0.40-0.90); POTASSIUM 4.1 MMOL/L (3.5-5.1); SODIUM 140 MMOL/L (135-145); TOTAL CARBON DIOXIDE 32.2 MMOL/L (24-32); eGFR 69 ML/MIN
[2017-09-13 08:47] LABS: GLUCOSE 116 MG/DL (70-104)
[2017-09-13 11:00] VITALS: BP 125/72
[2017-09-13] MEDS: LORazepam 1 MG tablet PO PRN (11:00)
[2017-09-13] MEDS ORDERED: potassium Cl 40MEQ/NS 500ml 500 ML IV PRN ×2 (11:25)
[2017-09-13] MEDS ORDERED: magnesium 2GM in 50ml NS 50 ML IV PRN (11:25)
[2017-09-13] MEDS ORDERED: magnesium 4gm in 100ml NS 100 ML IV PRN (11:25)
[2017-09-13] MEDS ORDERED: potassium Cl 20 mEq SR tablet PO PRN ×2 (11:25)
[2017-09-13] MEDS: VANCOMYCIN 750MG IV in NS 250 ML IV SCH ×2 (13:57→21:47)
[2017-09-13] MEDS: magnesium Cl slow-release 64mg tablet PO PRN ×2 (13:57→19:35)
[2017-09-13] MEDS: metoprolol tartrate 1mg/ml inj IV PRN ×2 (14:52→23:57)
[2017-09-13 15:00] VITALS: BP 126/82
[2017-09-13 19:00] VITALS: BP 120/66
[2017-09-13] MEDS: diphenoxylate/atropine tablet (Lomotil) PO PRN (19:35)
[2017-09-14] MEDS: oxyCODONE IR 5mg (immed. release) tablet PO PRN ×4 (01:35→21:23)
[2017-09-14 03:00] VITALS: BP 119/61
[2017-09-14] MEDS: metoprolol tartrate 1mg/ml inj IV PRN (03:32)
[2017-09-14 03:33] VITALS: BP 122/74
[2017-09-14 06:00] VITALS: BP 116/55
[2017-09-14 06:09] LABS: MAGNESIUM 1.3 MG/DL (1.5-2.4); POTASSIUM 3.8 MMOL/L (3.5-5.1)
[2017-09-14] MEDS: atenolol 50mg tablet PO SCH (08:00)
[2017-09-14] MEDS: K and/or MAG REPLACEMENT MC SCH (08:00)
[2017-09-14] MEDS: atorvastatin 20mg tablet PO SCH (08:28)
[2017-09-14] MEDS: furosemide 40mg tablet PO SCH (08:28)
[2017-09-14] MEDS: lactobacillus rhamnosus 10,000 MMU CELLS/CAPSULE PO SCH ×2 (08:28→19:33)
[2017-09-14] MEDS: levoTHYROXINE 25mcg tablet PO SCH (08:28)
[2017-09-14] MEDS: multivitamins, therapeutics tablet PO SCH (08:28)
[2017-09-14] MEDS: gabapentin 300mg capsule PO SCH ×2 (08:29→19:33)
[2017-09-14] MEDS: fluconazole 100mg tablet PO SCH (08:29)
[2017-09-14] MEDS: lisinopril 5mg tablet PO SCH (08:29)
[2017-09-14] MEDS: pantoprazole 40mg Tablet.DR PO SCH (08:29)
[2017-09-14] MEDS: amiodarone 200mg tablet PO SCH ×2 (08:31→19:33)
[2017-09-14] MEDS: thiamine 100mg tablet PO SCH (08:31)
[2017-09-14] MEDS: citalopram 20mg tablet PO SCH (08:31)
[2017-09-14] MEDS: nicotine 14mg patch - 24hr TD SCH (08:34)
[2017-09-14] MEDS: magnesium Cl slow-release 64mg tablet PO PRN ×2 (08:38→19:33)
[2017-09-14] MEDS: VANCOMYCIN 750MG IV in NS 250 ML IV SCH ×2 (10:58→22:09)
[2017-09-14 11:00] VITALS: BP 126/69
[2017-09-14] MEDS: LORazepam 1 MG tablet PO PRN (14:11)
[2017-09-14 19:00] VITALS: BP 117/56
[2017-09-14 23:00] VITALS: BP 131/74
[2017-09-15 03:00] VITALS: BP 126/69
[2017-09-15] MEDS: oxyCODONE IR 5mg (immed. release) tablet PO PRN ×3 (05:45→19:12)
[2017-09-15 05:54] LABS: MAGNESIUM 1.4 MG/DL (1.5-2.4)
[2017-09-15 06:00] VITALS: BP 141/96
[2017-09-15] MEDS: K and/or MAG REPLACEMENT MC SCH (08:00)
[2017-09-15] MEDS: atorvastatin 20mg tablet PO SCH (08:26)
[2017-09-15] MEDS: thiamine 100mg tablet PO SCH (08:26)
[2017-09-15] MEDS: amiodarone 200mg tablet PO SCH ×2 (08:26→20:00)
[2017-09-15] MEDS: lisinopril 5mg tablet PO SCH (08:26)
[2017-09-15] MEDS: levoTHYROXINE 25mcg tablet PO SCH (08:27)
[2017-09-15] MEDS: gabapentin 300mg capsule PO SCH ×2 (08:27→20:00)
[2017-09-15] MEDS: citalopram 20mg tablet PO SCH (08:27)
[2017-09-15] MEDS: multivitamins, therapeutics tablet PO SCH (08:27)
[2017-09-15] MEDS: lactobacillus rhamnosus 10,000 MMU CELLS/CAPSULE PO SCH ×2 (08:27→20:00)
[2017-09-15] MEDS: pantoprazole 40mg Tablet.DR PO SCH (08:27)
[2017-09-15] MEDS: furosemide 40mg tablet PO SCH (08:27)
[2017-09-15] MEDS: atenolol 50mg tablet PO SCH (08:28)
[2017-09-15] MEDS: nicotine 14mg patch - 24hr TD SCH (08:28)
[2017-09-15] MEDS: fluconazole 100mg tablet PO SCH (09:35)
[2017-09-15] MEDS ORDERED: diltiazem 5mg/ml 5ml inj. IV ONE (09:35)
[2017-09-15 11:00] VITALS: BP 101/54
[2017-09-15] MEDS: VANCOMYCIN 750MG IV in NS 250 ML IV SCH ×2 (12:42→22:00)
[2017-09-15 15:00] VITALS: BP 112/64
[2017-09-15 19:00] VITALS: BP 139/100
[2017-09-15] MEDS ORDERED: VANCOMYCIN LEVEL IV NR (21:30)
[2017-09-15 23:00] VITALS: BP 129/65
[2017-09-16 03:00] VITALS: BP 152/77
[2017-09-16 06:00] VITALS: BP 145/70
[2017-09-16 06:00] LABS: ALBUMIN 1.6 G/DL (3.4-5.0); ANION GAP 3 (8-16); BLOOD UREA NITROGEN 13 MG/DL (7-18); BUN/CREATININE RATIO 14.9 (6.6-38.0); CALCIUM 7.9 MG/DL (8.5-10.1); CHLORIDE 102 MMOL/L (99-107); CREATININE 0.87 MG/DL (0.40-0.90); MAGNESIUM 2.1 MG/DL (1.5-2.4); POTASSIUM 4.1 MMOL/L (3.5-5.1); SODIUM 139 MMOL/L (135-145); TOTAL CARBON DIOXIDE 33.7 MMOL/L (24-32); eGFR 65 ML/MIN
[2017-09-16 06:09] LABS: GLUCOSE 111 MG/DL (70-104)
[2017-09-16] MEDS: atorvastatin 20mg tablet PO SCH (07:20)
[2017-09-16] MEDS: fluconazole 100mg tablet PO SCH (07:20)
[2017-09-16] MEDS: atenolol 50mg tablet PO SCH (07:20)
[2017-09-16] MEDS: thiamine 100mg tablet PO SCH (07:20)
[2017-09-16] MEDS: levoTHYROXINE 25mcg tablet PO SCH (07:20)
[2017-09-16] MEDS: furosemide 40mg tablet PO SCH (07:20)
[2017-09-16] MEDS: multivitamins, therapeutics tablet PO SCH (07:21)
[2017-09-16] MEDS: gabapentin 300mg capsule PO SCH ×2 (07:21→21:06)
[2017-09-16] MEDS: LORazepam 1 MG tablet PO PRN (07:21)
[2017-09-16] MEDS: pantoprazole 40mg Tablet.DR PO SCH (07:21)
[2017-09-16] MEDS: amiodarone 200mg tablet PO SCH ×2 (07:21→21:06)
[2017-09-16] MEDS: lisinopril 5mg tablet PO SCH (07:21)
[2017-09-16] MEDS: lactobacillus rhamnosus 10,000 MMU CELLS/CAPSULE PO SCH ×2 (07:21→21:06)
[2017-09-16] MEDS: nicotine 14mg patch - 24hr TD SCH (07:21)
[2017-09-16] MEDS: citalopram 20mg tablet PO SCH (07:23)
[2017-09-16] MEDS: oxyCODONE IR 5mg (immed. release) tablet PO PRN ×3 (07:26→19:47)
[2017-09-16] MEDS: K and/or MAG REPLACEMENT MC SCH (07:31)
[2017-09-16] MEDS: VANCOMYCIN 750MG IV in NS 250 ML IV SCH ×2 (10:02→22:14)
[2017-09-16 11:00] VITALS: BP 119/66
[2017-09-16] MEDS: Protein Shake (high protein) 240ml (8oz) cup PO SCH ×2 (13:11→18:25)
[2017-09-16 15:00] VITALS: BP 131/87
[2017-09-16 18:00] VITALS: BP 137/64
[2017-09-16 22:00] VITALS: BP 123/54
[2017-09-17 02:00] VITALS: BP 146/76
[2017-09-17] MEDS: oxyCODONE IR 5mg (immed. release) tablet PO PRN ×2 (04:28→16:32)
[2017-09-17 06:53] VITALS: BP 129/81
[2017-09-17] MEDS: amiodarone 200mg tablet PO SCH ×2 (07:54→19:58)
[2017-09-17] MEDS: atorvastatin 20mg tablet PO SCH (07:54)
[2017-09-17] MEDS: pantoprazole 40mg Tablet.DR PO SCH (07:54)
[2017-09-17] MEDS: multivitamins, therapeutics tablet PO SCH (07:54)
[2017-09-17] MEDS: nicotine 14mg patch - 24hr TD SCH (07:54)
[2017-09-17] MEDS: thiamine 100mg tablet PO SCH (07:54)
[2017-09-17] MEDS: K and/or MAG REPLACEMENT MC SCH (07:55)
[2017-09-17] MEDS: levoTHYROXINE 25mcg tablet PO SCH (07:55)
[2017-09-17] MEDS: lactobacillus rhamnosus 10,000 MMU CELLS/CAPSULE PO SCH ×2 (07:55→19:58)
[2017-09-17] MEDS: furosemide 40mg tablet PO SCH (07:55)
[2017-09-17] MEDS: lisinopril 5mg tablet PO SCH (07:55)
[2017-09-17] MEDS: fluconazole 100mg tablet PO SCH (07:55)
[2017-09-17] MEDS: atenolol 50mg tablet PO SCH (07:55)
[2017-09-17] MEDS: citalopram 20mg tablet PO SCH (07:55)
[2017-09-17] MEDS: Protein Shake (high protein) 240ml (8oz) cup PO SCH ×3 (07:55→17:48)
[2017-09-17] MEDS: LORazepam 1 MG tablet PO PRN ×2 (07:59→19:58)
[2017-09-17] MEDS ORDERED: VANCOMYCIN LEVEL IV NR (09:30)
[2017-09-17] MEDS ORDERED: iohexol 300mg/ml 100ml inj. ONE (09:49)
[2017-09-17] MEDS: gabapentin 300mg capsule PO SCH ×2 (11:02→19:58)
[2017-09-17] MEDS: VANCOMYCIN 750MG IV in NS 250 ML IV SCH ×2 (11:02→22:07)
[2017-09-17 12:09] VITALS: BP 111/55
[2017-09-17 12:15] LABS: ALBUMIN 1.8 G/DL (3.4-5.0); ANION GAP 6 (8-16); BLOOD UREA NITROGEN 14 MG/DL (7-18); BUN/CREATININE RATIO 15.6 (6.6-38.0); CALCIUM 8.1 MG/DL (8.5-10.1); CHLORIDE 97 MMOL/L (99-107); GLUCOSE 91 MG/DL (70-104); SODIUM 135 MMOL/L (135-145); TOTAL CARBON DIOXIDE 32.3 MMOL/L (24-32); eGFR 62 ML/MIN
[2017-09-17 17:02] VITALS: BP 118/62
[2017-09-17 18:30] VITALS: BP 147/71
[2017-09-17 22:00] VITALS: BP 128/67
[2017-09-18] VITALS (22 sets, daily range): BP systolic 100–147; BP diastolic 51–85
[2017-09-18] MEDS: oxyCODONE IR 5mg (immed. release) tablet PO PRN ×5 (03:28→21:10)
[2017-09-18 05:34] LABS: ALBUMIN 1.7 G/DL (3.4-5.0); ANION GAP 4 (8-16); BLOOD UREA NITROGEN 17 MG/DL (7-18); BUN/CREATININE RATIO 14.5 (6.6-38.0); CHLORIDE 101 MMOL/L (99-107); CREATININE 1.17 MG/DL (0.40-0.90); SODIUM 138 MMOL/L (135-145); TOTAL CARBON DIOXIDE 33.2 MMOL/L (24-32); eGFR 46 ML/MIN
[2017-09-18 05:45] LABS: GLUCOSE 102 MG/DL (70-104)
[2017-09-18] MEDS ORDERED: BUPIVAcaine/PF 2.5 mg/ml (0.25%) 30ml vial ONE (07:00)
[2017-09-18] MEDS ORDERED: LIDOcaine 1% 30ml vial 30 ML ONE (07:00)
[2017-09-18] MEDS: LORazepam 1 MG tablet PO PRN ×2 (07:08→11:48)
[2017-09-18] MEDS ORDERED: ringers solution, lacted 1,000 ML IV SCH (07:33)
[2017-09-18] MEDS ORDERED: ondansetron/PF 4mg/2ml inj IV PRN (07:35)
[2017-09-18] MEDS ORDERED: enalaprilat dihydrate 2.5mg/2ml vial IV PRN (07:35)
[2017-09-18] MEDS ORDERED: hydrALAZINE 20mg/ml inj. IV PRN (07:35)
[2017-09-18] MEDS ORDERED: HYDROmorphone inj. 0.5 MG/0.5 ML DISP.SYRIN IV PRN ×2 (07:35)
[2017-09-18] MEDS ORDERED: morphine 2 MG/ML inj. syringe IV PRN ×2 (07:35)
[2017-09-18 07:43] LABS: BASOPHILS % (AUTO) 0.5 % (0-1); EOSINOPHILS % (AUTO) 0.6 % (0-6); HEMATOCRIT 25.9 % (35.0-45.0); HEMOGLOBIN 8.7 g/dl (12.0-16.0); LYMPHOCYTES % (AUTO) 15.7 % (21-51); MEAN CORPUSCULAR HEMOGLOBIN 31.5 PG (27.0-31.0); MEAN CORPUSCULAR HGB CONC 33.7 % (33.0-36.5); MEAN CORPUSCULAR VOLUME 93.7 FL (78-98); MEAN PLATELET VOLUME 7.6 FL (7.4-10.4); MONOCYTES # (AUTO) 0.7 X10'3 (0-0.9); MONOCYTES % (AUTO) 11.7 % (2-12); NEUTROPHILS # (AUTO) 4.4 X10'3 (1.8-7.7); NEUTROPHILS % (AUTO) 71.5 % (42-75); PLATELET COUNT 396 X10'3 (140-440); RED BLOOD COUNT 2.77 X10'6 (4.20-5.60); RED CELL DISTRIBUTION WIDTH 16.3 % (11.5-14.5); WHITE BLOOD COUNT 6.2 X10'3 (4.5-11.0)
[2017-09-18] MEDS: atorvastatin 20mg tablet PO SCH (07:46)
[2017-09-18] MEDS: nicotine 14mg patch - 24hr TD SCH (07:46)
[2017-09-18] MEDS: multivitamins, therapeutics tablet PO SCH (07:46)
[2017-09-18] MEDS: lactobacillus rhamnosus 10,000 MMU CELLS/CAPSULE PO SCH ×2 (07:47→21:10)
[2017-09-18] MEDS: levoTHYROXINE 25mcg tablet PO SCH (07:47)
[2017-09-18] MEDS: furosemide 40mg tablet PO SCH (07:47)
[2017-09-18] MEDS: thiamine 100mg tablet PO SCH (07:47)
[2017-09-18] MEDS: citalopram 20mg tablet PO SCH (07:47)
[2017-09-18] MEDS: lisinopril 5mg tablet PO SCH (07:48)
[2017-09-18] MEDS: gabapentin 300mg capsule PO SCH ×2 (07:48→21:11)
[2017-09-18] MEDS: atenolol 50mg tablet PO SCH (07:48)
[2017-09-18] MEDS: amiodarone 200mg tablet PO SCH ×2 (07:48→21:10)
[2017-09-18] MEDS: Protein Shake (high protein) 240ml (8oz) cup PO SCH ×3 (08:00→18:00)
[2017-09-18] MEDS: K and/or MAG REPLACEMENT MC SCH (08:00)
[2017-09-18] MEDS: fluconazole 100mg tablet PO SCH (08:15)
[2017-09-18] MEDS: pantoprazole 40mg Tablet.DR PO SCH (08:15)
[2017-09-18 08:42] LABS: ALANINE AMINOTRANSFERASE 44 U/L (12-78); ALBUMIN 1.8 G/DL (3.4-5.0); ALBUMIN/GLOBULIN RATIO 0.3 (1.1-1.5); ALKALINE PHOSPHATASE 112 IU/L (46-116); ANION GAP 5 (8-16); ASPARTATE AMINO TRANSFERASE 40 U/L (10-37); BILIRUBIN,TOTAL 0.4 MG/DL (0.1-1.0); BLOOD UREA NITROGEN 18 MG/DL (7-18); BUN/CREATININE RATIO 17.3 (6.6-38.0); CALCIUM 8.1 MG/DL (8.5-10.1); CHLORIDE 100 MMOL/L (99-107); CREATININE 1.04 MG/DL (0.40-0.90); GLUCOSE 95 MG/DL (70-104); SODIUM 138 MMOL/L (135-145); TOTAL CARBON DIOXIDE 33.1 MMOL/L (24-32); eGFR 53 ML/MIN
[2017-09-18] MEDS ORDERED: etomidate 2mg/ml inj. ONE (08:54)
[2017-09-18] MEDS ORDERED: sevoflurane 250ml liquid IH ONE (08:54)
[2017-09-18] MEDS ORDERED: midazolam 2 mg/2 ml injection ONE (09:06)
[2017-09-18] MEDS ORDERED: fentaNYL/PF 50MCG/1 ML 2ML syringe ONE (09:06)
[2017-09-18] MEDS ORDERED: dexamethasone sod phosphate 4mg/ml inj. ONE (09:10)
[2017-09-18] MEDS ORDERED: ondansetron/PF 4mg/2ml inj ONE (09:11)
[2017-09-18] MEDS ORDERED: LIDOcaine 1% 30ml preserv. free vial IJ ONE (09:26)
[2017-09-18] MEDS ORDERED: morphine 8mg/ml inj. syringe ONE (10:33)
[2017-09-18] MEDS: VANCOMYCIN 750MG IV in NS 250 ML IV SCH ×2 (11:48→21:11)
[2017-09-18] MEDS: magnesium hydroxide 30ml (MOM) UD suspension PO PRN (16:53)
[2017-09-19 02:00] VITALS: BP 132/65
[2017-09-19 06:30] VITALS: BP 155/65
[2017-09-19] MEDS: oxyCODONE IR 5mg (immed. release) tablet PO PRN ×2 (07:04→16:46)
[2017-09-19] MEDS: pantoprazole 40mg Tablet.DR PO SCH (07:05)
[2017-09-19] MEDS: Protein Shake (high protein) 240ml (8oz) cup PO SCH ×2 (08:00→13:00)
[2017-09-19] MEDS: K and/or MAG REPLACEMENT MC SCH (08:00)
[2017-09-19] MEDS: nicotine 14mg patch - 24hr TD SCH (08:16)
[2017-09-19] MEDS: levoTHYROXINE 25mcg tablet PO SCH (08:16)
[2017-09-19] MEDS: furosemide 40mg tablet PO SCH (08:16)
[2017-09-19] MEDS: gabapentin 300mg capsule PO SCH (08:17)
[2017-09-19] MEDS: citalopram 20mg tablet PO SCH (08:17)
[2017-09-19] MEDS: multivitamins, therapeutics tablet PO SCH (08:17)
[2017-09-19] MEDS: atorvastatin 20mg tablet PO SCH (08:17)
[2017-09-19] MEDS: atenolol 50mg tablet PO SCH (08:18)
[2017-09-19] MEDS: lactobacillus rhamnosus 10,000 MMU CELLS/CAPSULE PO SCH (08:19)
[2017-09-19] MEDS: thiamine 100mg tablet PO SCH (08:19)
[2017-09-19] MEDS: amiodarone 200mg tablet PO SCH (08:19)
[2017-09-19] MEDS: fluconazole 100mg tablet PO SCH (08:20)
[2017-09-19] MEDS: lisinopril 5mg tablet PO SCH (08:20)
[2017-09-19 11:00] VITALS: BP 112/54
[2017-09-19] MEDS ORDERED: NICO-631 TD (14:31)
[2017-09-19] MEDS ORDERED: AMIO200T57 PO (14:31)
[2017-09-19] MEDS ORDERED: FURO40TA4 PO (14:31)
[2017-09-19] MEDS ORDERED: MULT-1179 PO (14:31)
[2017-09-19] MEDS ORDERED: TRAM50TA2 PO (14:31)
[2017-09-19] MEDS ORDERED: THI100T PO (14:31)
[2017-09-19] MEDS ORDERED: VANC750F2 IV (14:31)
[2017-09-19] MEDS ORDERED: ATOR20TA66 PO (14:31)
[2017-09-19] MEDS ORDERED: GABA300C PO (14:31)
[2017-09-19] MEDS ORDERED: LISI-604 PO (14:31)
[2017-09-19] MEDS ORDERED: LACT1CAP26 PO (14:31)
[2017-09-19 15:00] VITALS: BP 93/50
[2017-09-19] MEDS: VANCOMYCIN 750MG IV in NS 250 ML IV SCH (15:26)
[2017-09-19] MEDS ORDERED: CITA20TA11 PO (16:58)
== END 2017-09-19 18:00 | disposition home health service (06) | DRG 853 ==
LOC: ER 14:00 → ED HOLD 17:59 → EDBEDREQ 19:56 → EDBEDREQTM 19:56 → EDBEDREQSVC 09-01 20:18 → PCU 3S 09-01 21:05
PROVIDERS: ADMIT Legal Medicine; ATTEND Internal Medicine
PROC: 02HV33Z Insertion of Infusion Device into Superior Vena Cava, Percutaneous Approach (ICD-10-PCS; 2017-08-31)
PROC: B548ZZA Ultrasonography of Superior Vena Cava, Guidance (ICD-10-PCS; 2017-08-31)
PROC: BQ2S1ZZ Computerized Tomography (CT Scan) of Left Lower Extremity using Low Osmolar Contrast (ICD-10-PCS; 2017-09-06)
PROC: 0K9R30Z Drainage of Left Upper Leg Muscle with Drainage Device, Percutaneous Approach (ICD-10-PCS; 2017-09-10)
PROC: 0DB58ZX Excision of Esophagus, Via Natural or Artificial Opening Endoscopic, Diagnostic (ICD-10-PCS; 2017-09-11)
PROC: BQ2S1ZZ Computerized Tomography (CT Scan) of Left Lower Extremity using Low Osmolar Contrast (ICD-10-PCS; 2017-09-17)
PROC: 0J9M0ZZ Drainage of Left Upper Leg Subcutaneous Tissue and Fascia, Open Approach (ICD-10-PCS; 2017-09-18)
PROC: 0J9M0ZZ Drainage of Left Upper Leg Subcutaneous Tissue and Fascia, Open Approach (ICD-10-PCS; principal; 2017-09-18 08:59)
DX: A41.9 Sepsis, unspecified organism (principal); R65.21 Severe sepsis with septic shock; N17.9 Acute kidney failure, unspecified; I50.43 Acute on chronic combined systolic (congestive) and diastolic (congestive) heart failure; K86.2 Cyst of pancreas; L02.214 Cutaneous abscess of groin; B37.81 Candidal esophagitis; I48.91 Unspecified atrial fibrillation; L03.116 Cellulitis of left lower limb; L02.416 Cutaneous abscess of left lower limb; E03.9 Hypothyroidism, unspecified; E78.00 Pure hypercholesterolemia, unspecified; E78.5 Hyperlipidemia, unspecified; I11.0 Hypertensive heart disease with heart failure; F41.1 Generalized anxiety disorder; B19.20 Unspecified viral hepatitis C without hepatic coma; F32.9 Major depressive disorder, single episode, unspecified; I44.7 Left bundle-branch block, unspecified; M19.90 Unspecified osteoarthritis, unspecified site; M54.2 Cervicalgia; M54.9 Dorsalgia, unspecified; G89.29 Other chronic pain; K44.9 Diaphragmatic hernia without obstruction or gangrene; K21.9 Gastro-esophageal reflux disease without esophagitis; K22.4 Dyskinesia of esophagus; F11.21 Opioid dependence, in remission; F10.20 Alcohol dependence, uncomplicated; F12.90 Cannabis use, unspecified, uncomplicated; F15.10 Other stimulant abuse, uncomplicated; F17.210 Nicotine dependence, cigarettes, uncomplicated; Z90.49 Acquired absence of other specified parts of digestive tract; Z88.8 Allergy status to other drugs, medicaments and biological substances; Z79.899 Other long term (current) drug therapy; Z86.73 Personal history of transient ischemic attack (TIA), and cerebral infarction without residual deficits; Z87.11 Personal history of peptic ulcer disease
CPT/HCPCS: 10030; 36415; 36556; 43239; 71045; 73700; 73701; 73718; 80048; 80053; 80061; 80076; 80202; 81001; 82272; 82550; 83605; 83735; 83880; 84132; 84145; 84439; 84443; 84484; 85025; 85610; 85730; 87040; 87045; 87046; 87070; 87075; 87102; 88305; 88312; 89055; 93005; 93306; 93970; 93971; 96372; 97110; 97116; 97161; 99285; A4620; A6213; A6253; A6257; A6266; A6449; A7000; C1751; C1758; G0500; J0282; J0696; J1100; J1644; J1940; J2060; J2250; J2270; J2405; J2543; J3010; J3370; J3411; J3475; J3490; J7030; J7060; J7120; Q9967

== ENCOUNTER 2017-09-21 23:16 | Inpatient (IN) | payer MEDICARE, MEDICAID ==
[~2017-09-21] VITALS: Ht 160 cm; Wt 59.1 kg
[~2017-09-21 23:16] MED LIST changes: +AMIO200T57 PO; +ATOR20TA66 PO; +CITA20TA11 PO; +FURO40TA4 PO; +GABA300C PO; +LACT1CAP26 PO; +LISI-604 PO; -LISI1TAB13 PO; +MULT-1179 PO; +NICO-631 TD; +THI100T PO; +TRAM50TA2 PO; +VANC750F2 IV
[2017-09-21] MEDS ORDERED: nitroGLYCERIN-Tridil 50MG/D5W 250 ML IV PRN (23:21)
[2017-09-21] MEDS ORDERED: nitroGLYCERIN 0.4mg SUBLingual tab SL PRN (23:25)
[2017-09-21] MEDS ORDERED: furosemide 10 MG/1 ML 10ml inj IV ONE (23:25)
[2017-09-21] MEDS ORDERED: nitroGLYCERIN 0.4mg/hour patch TD ONE (23:35)
[2017-09-22 01:37] LABS: URINE AMPHETAMINE SCREEN NEGATIVE (Neg); URINE BARBITUATE SCREEN NEGATIVE (Neg); URINE BENZODIAZEPINES SCREEN NEGATIVE (Neg); URINE CANNABINOID SCREEN NEGATIVE (Neg); URINE COCAINE SCREEN NEGATIVE (Neg); URINE METHADONE SCREEN NEGATIVE (Neg); URINE OPIATE SCREEN NEGATIVE (Neg); URINE PHENCYCLIDINE SCREEN NEGATIVE (Neg)
[2017-09-22 02:06] LABS: BASOPHILS % (AUTO) 0.1 % (0-1); EOSINOPHILS # (AUTO) 0.1 X10'3 (0-0.9); EOSINOPHILS % (AUTO) 1.4 % (0-6); HEMATOCRIT 29.3 % (35.0-45.0); HEMOGLOBIN 9.8 g/dl (12.0-16.0); LYMPHOCYTES # (AUTO) 0.3 X10'3 (1.1-4.8); LYMPHOCYTES % (AUTO) 3.5 % (21-51); MEAN CORPUSCULAR HEMOGLOBIN 31.3 PG (27.0-31.0); MEAN CORPUSCULAR HGB CONC 33.5 % (33.0-36.5); MEAN CORPUSCULAR VOLUME 93.5 FL (78-98); MONOCYTES # (AUTO) 0.4 X10'3 (0-0.9); MONOCYTES % (AUTO) 4.4 % (2-12); NEUTROPHILS # (AUTO) 7.3 X10'3 (1.8-7.7); NEUTROPHILS % (AUTO) 90.6 % (42-75); PLATELET COUNT 214 X10'3 (140-440); RED BLOOD COUNT 3.13 X10'6 (4.20-5.60); RED CELL DISTRIBUTION WIDTH 16.1 % (11.5-14.5)
[2017-09-22 02:10] LABS: INR 1.1 INR; PARTIAL THROMBOPLASTIN TIME 29 SECONDS (22-32); PROTHROMBIN TIME 11.1 SECONDS (9.0-12.0)
[2017-09-22 02:21] LABS: CREATINE KINASE 20 U/L (26-192); MAGNESIUM 1.4 MG/DL (1.5-2.4)
[2017-09-22 02:24] LABS: ETHANOL < 0.010 GM/DL (0.0-0.010)
[2017-09-22 02:50] LABS: ALANINE AMINOTRANSFERASE 68 U/L (12-78); ALBUMIN 2.2 G/DL (3.4-5.0); ALBUMIN/GLOBULIN RATIO 0.4 (1.1-1.5); ALKALINE PHOSPHATASE 153 IU/L (46-116); ANION GAP 7 (8-16); ASPARTATE AMINO TRANSFERASE 64 U/L (10-37); BILIRUBIN,TOTAL 0.4 MG/DL (0.1-1.0); BLOOD UREA NITROGEN 21 MG/DL (7-18); BUN/CREATININE RATIO 13.4 (6.6-38.0); CALCIUM 7.7 MG/DL (8.5-10.1); CHLORIDE 95 MMOL/L (99-107); CREATININE 1.57 MG/DL (0.40-0.90); GLUCOSE 124 MG/DL (70-104); LIPASE 334 U/L (73-393); POTASSIUM 4.6 MMOL/L (3.5-5.1); SODIUM 131 MMOL/L (135-145); TOTAL CARBON DIOXIDE 28.8 MMOL/L (24-32); TOTAL PROTEIN 7.9 G/DL (6.4-8.2); eGFR 33 ML/MIN
[2017-09-22 03:30] LABS: ABG BASE EXCESS 8.1 mmol/L (-2.0-3.0); ABG HCO3 31.4 mmol/L (22.0-26.0); ABG OXYGEN SATURATION 99.4 % (95-98); ABG PCO2 (T) 37.6 mmHg (32.0-45.0); ABG PH (T) 7.537 (7.350-7.450); ABG PO2 (T) 298.9 mmHg (83-108); ALLEN'S TEST Positive; FCOHb 0.5 % (0.5-1.5); FMetHb 0.2 % (0.3-1.12); FO2Hb 98.7 % (94-100); MINUTE VOLUME 9 L/min; PATIENT TEMPERATURE 36.6; RESPIRATORY RATE 14 b/min; RESPIRATORY RATE (OBSERVED) 19 b/min; TOTAL HEMOGLOBIN 9.1 G/dl (12.0-16.0)
[2017-09-22 03:45] LABS: TOTAL CELLS COUNTED 100
[2017-09-22 03:46] LABS: ANISOCYTOSIS 1+; PLATELET ESTIMATE NORMAL
[2017-09-22] MEDS ORDERED: magnesium 2GM in 50ml NS 50 ML IV ONE (03:50)
[2017-09-22] MEDS ORDERED: magnesium hydroxide 30ml (MOM) UD suspension PO PRN (04:10)
[2017-09-22] MEDS ORDERED: ondansetron/PF 4mg/2ml inj IV PRN (04:10)
[2017-09-22] MEDS ORDERED: magnesium 2GM in 50ml NS 50 ML IV PRN (04:10)
[2017-09-22] MEDS ORDERED: potassium Cl 40MEQ/NS 500ml 500 ML IV PRN ×2 (04:10)
[2017-09-22] MEDS ORDERED: albuterol 2.5 MG/3 ML nebule NEB PRN (04:10)
[2017-09-22] MEDS ORDERED: ipratropium/albuterol 3ml nebule NEB PRN (04:10)
[2017-09-22] MEDS ORDERED: magnesium Cl slow-release 64mg tablet PO PRN (04:10)
[2017-09-22] MEDS ORDERED: normal saline 1000ml 1,000 ML IV SCH (04:10)
[2017-09-22] MEDS ORDERED: magnesium 4gm in 100ml NS 100 ML IV PRN (04:10)
[2017-09-22] MEDS ORDERED: potassium Cl 20 mEq SR tablet PO PRN ×2 (04:10)
[2017-09-22] MEDS ORDERED: mag hydrox/Alum hydrox/simeth 30ml oral suspension PO PRN (04:10)
[2017-09-22] MEDS ORDERED: LEVO50TA PO (04:29)
[2017-09-22] MEDS ORDERED: CefTRIAXone 2gm/NS 100ml IVPB 100 ML IV SCH (04:36)
[2017-09-22] MEDS ORDERED: naproxen 500mg tablet PO ONE (05:55)
[2017-09-22] MEDS ORDERED: amiodarone 200mg tablet PO ONE (06:00)
[2017-09-22] MEDS: amiodarone 200mg tablet PO SCH ×2 (06:13→20:53)
[2017-09-22] MEDS: K and/or MAG REPLACEMENT MC SCH (08:00)
[2017-09-22] MEDS: atenolol 50mg tablet PO SCH ×2 (08:17→20:53)
[2017-09-22] MEDS: thiamine 100mg tablet PO SCH (08:17)
[2017-09-22] MEDS: nicotine 14mg patch - 24hr TD SCH (08:17)
[2017-09-22] MEDS: levoTHYROXINE 25mcg tablet PO SCH (08:18)
[2017-09-22] MEDS: gabapentin 300mg capsule PO SCH ×2 (08:19→20:53)
[2017-09-22] MEDS: citalopram 20mg tablet PO SCH (08:19)
[2017-09-22] MEDS: furosemide 40mg tablet PO SCH (08:19)
[2017-09-22] MEDS: lactobacillus rhamnosus 10,000 MMU CELLS/CAPSULE PO SCH ×2 (08:19→20:53)
[2017-09-22] MEDS: pantoprazole 40mg Tablet.DR PO SCH (08:19)
[2017-09-22] MEDS: atorvastatin 20mg tablet PO SCH (08:20)
[2017-09-22] MEDS: acetaminophen 325mg tablet PO PRN (08:40)
[2017-09-22] MEDS: lisinopril 5mg tablet PO SCH (08:41)
[2017-09-22] MEDS: morphine 4 MG/ML inj SYRINge IV PRN ×3 (11:34→20:38)
[2017-09-22] MEDS ORDERED: vancomycin/NS 1 GM ADD-VANTAGE 250 ML IV SCH (12:05)
[2017-09-22] MEDS: ipratropium/albuterol 3ml nebule NEB SCH ×3 (14:59→19:36)
[2017-09-22] MEDS: vancomycin/NS 1 GM ADD-VANTAGE 250 ML IV SCH (15:09)
[2017-09-22] MEDS: amox tr/potassium clavulanate 875/125mg TAB PO SCH (19:20)
[2017-09-22 19:25] VITALS: BP 124/86
[2017-09-22] MEDS: heparin, porcine 5000 units/ml vial SQ SCH (20:53)
[2017-09-22 23:00] VITALS: BP 146/89
[2017-09-23] MEDS: morphine 4 MG/ML inj SYRINge IV PRN ×3 (01:46→14:12)
[2017-09-23 03:00] VITALS: BP 138/80
[2017-09-23 05:23] LABS: BASOPHILS % (AUTO) 0.7 % (0-1); EOSINOPHILS % (AUTO) 1.2 % (0-6); HEMATOCRIT 25.6 % (35.0-45.0); HEMOGLOBIN 8.4 g/dl (12.0-16.0); LYMPHOCYTES # (AUTO) 0.7 X10'3 (1.1-4.8); LYMPHOCYTES % (AUTO) 18.1 % (21-51); MEAN CORPUSCULAR HEMOGLOBIN 30.8 PG (27.0-31.0); MEAN CORPUSCULAR HGB CONC 32.8 % (33.0-36.5); MEAN CORPUSCULAR VOLUME 93.9 FL (78-98); MEAN PLATELET VOLUME 7.9 FL (7.4-10.4); MONOCYTES # (AUTO) 0.3 X10'3 (0-0.9); MONOCYTES % (AUTO) 8.7 % (2-12); NEUTROPHILS # (AUTO) 2.7 X10'3 (1.8-7.7); NEUTROPHILS % (AUTO) 71.3 % (42-75); PLATELET COUNT 226 X10'3 (140-440); RED BLOOD COUNT 2.72 X10'6 (4.20-5.60); RED CELL DISTRIBUTION WIDTH 16.4 % (11.5-14.5); WHITE BLOOD COUNT 3.8 X10'3 (4.5-11.0)
[2017-09-23 05:53] LABS: ALANINE AMINOTRANSFERASE 47 U/L (12-78); ALBUMIN/GLOBULIN RATIO 0.4 (1.1-1.5); ALKALINE PHOSPHATASE 119 IU/L (46-116); ANION GAP 4 (8-16); ASPARTATE AMINO TRANSFERASE 46 U/L (10-37); BILIRUBIN,TOTAL 0.3 MG/DL (0.1-1.0); BLOOD UREA NITROGEN 14 MG/DL (7-18); BUN/CREATININE RATIO 13.6 (6.6-38.0); CALCIUM 7.5 MG/DL (8.5-10.1); CHLORIDE 99 MMOL/L (99-107); CHOL/HDL RATIO 2.7 (0.00-4.99); CHOLESTEROL 88 MG/DL (0-200); CREATININE 1.03 MG/DL (0.40-0.90); HDL CHOLESTEROL 33 MG/DL (35-60); LDL CHOLESTEROL 40 MG/DL (50-100); MAGNESIUM 1.6 MG/DL (1.5-2.4); POTASSIUM 3.5 MMOL/L (3.5-5.1); SODIUM 136 MMOL/L (135-145); TOTAL CARBON DIOXIDE 32.8 MMOL/L (24-32); TOTAL PROTEIN 7.2 G/DL (6.4-8.2); TRIGLYCERIDES 74 MG/DL (20-135); eGFR 53 ML/MIN
[2017-09-23 05:54] LABS: GLUCOSE 104 MG/DL (70-104)
[2017-09-23 06:00] VITALS: BP 130/79
[2017-09-23] MEDS: thiamine 100mg tablet PO SCH (07:33)
[2017-09-23] MEDS: levoTHYROXINE 25mcg tablet PO SCH (07:33)
[2017-09-23] MEDS: lisinopril 5mg tablet PO SCH (07:33)
[2017-09-23] MEDS: atorvastatin 20mg tablet PO SCH (07:33)
[2017-09-23] MEDS: citalopram 20mg tablet PO SCH (07:33)
[2017-09-23] MEDS: amiodarone 200mg tablet PO SCH (07:33)
[2017-09-23] MEDS: pantoprazole 40mg Tablet.DR PO SCH (07:33)
[2017-09-23] MEDS: lactobacillus rhamnosus 10,000 MMU CELLS/CAPSULE PO SCH (07:33)
[2017-09-23] MEDS: gabapentin 300mg capsule PO SCH (07:33)
[2017-09-23] MEDS: atenolol 50mg tablet PO SCH (07:34)
[2017-09-23] MEDS: heparin, porcine 5000 units/ml vial SQ SCH (07:34)
[2017-09-23] MEDS: nicotine 14mg patch - 24hr TD SCH (07:34)
[2017-09-23] MEDS: amox tr/potassium clavulanate 875/125mg TAB PO SCH (07:34)
[2017-09-23] MEDS: furosemide 40mg tablet PO SCH (07:50)
[2017-09-23] MEDS: K and/or MAG REPLACEMENT MC SCH (08:00)
[2017-09-23] MEDS: ipratropium/albuterol 3ml nebule NEB SCH ×2 (08:40→12:15)
[2017-09-23 11:00] VITALS: BP 135/76
[2017-09-23] MEDS: acetaminophen 325mg tablet PO PRN (12:02)
[2017-09-23] MEDS ORDERED: ALBU6.7H INH (12:47)
[2017-09-23] MEDS ORDERED: AMOX-580 PO (12:47)
[2017-09-23] MEDS ORDERED: POTA20TA19 PO (12:47)
[2017-09-23] MEDS ORDERED: FURO40TA4 PO (12:47)
[2017-09-23] MEDS: vancomycin/NS 1 GM ADD-VANTAGE 250 ML IV SCH (13:00)
[2017-09-25] MEDS ORDERED: VANCOMYCIN LEVEL IV ONE (12:30)
== END 2017-09-23 14:27 | disposition home or self-care (01) | DRG 291 ==
LOC: ER 23:17 → ED HOLD 09-22 04:10 → PCU 3S 09-22 19:25
PROVIDERS: ADMIT Internal Medicine; ATTEND Internal Medicine
PROC: 5A09357 Assistance with Respiratory Ventilation, Less than 24 Consecutive Hours, Continuous Positive Airway Pressure (ICD-10-PCS; principal; 2017-09-21)
PROC: 5A09357 Assistance with Respiratory Ventilation, Less than 24 Consecutive Hours, Continuous Positive Airway Pressure (ICD-10-PCS; 2017-09-22)
PROC: 5A09357 Assistance with Respiratory Ventilation, Less than 24 Consecutive Hours, Continuous Positive Airway Pressure (ICD-10-PCS; 2017-09-23)
DX: I13.0 Hypertensive heart and chronic kidney disease with heart failure and stage 1 through stage 4 chronic kidney disease, or unspecified chronic kidney disease (principal); I50.23 Acute on chronic systolic (congestive) heart failure; J96.20 Acute and chronic respiratory failure, unspecified whether with hypoxia or hypercapnia; N17.9 Acute kidney failure, unspecified; J44.0 Chronic obstructive pulmonary disease with (acute) lower respiratory infection; I16.1 Hypertensive emergency; J44.1 Chronic obstructive pulmonary disease with (acute) exacerbation; L02.214 Cutaneous abscess of groin; D64.9 Anemia, unspecified; E83.42 Hypomagnesemia; E03.9 Hypothyroidism, unspecified; E78.00 Pure hypercholesterolemia, unspecified; E78.5 Hyperlipidemia, unspecified; F17.200 Nicotine dependence, unspecified, uncomplicated; F32.9 Major depressive disorder, single episode, unspecified; J20.9 Acute bronchitis, unspecified; K21.9 Gastro-esophageal reflux disease without esophagitis; N18.9 Chronic kidney disease, unspecified; B19.20 Unspecified viral hepatitis C without hepatic coma; F12.90 Cannabis use, unspecified, uncomplicated; M19.90 Unspecified osteoarthritis, unspecified site; Z86.73 Personal history of transient ischemic attack (TIA), and cerebral infarction without residual deficits; Z88.1 Allergy status to other antibiotic agents; Z79.899 Other long term (current) drug therapy; Z90.49 Acquired absence of other specified parts of digestive tract; Z71.6 Tobacco abuse counseling
CPT/HCPCS: 36415; 36600; 71045; 71046; 80053; 80061; 80305; 80320; 82550; 82803; 83605; 83690; 83735; 83874; 83880; 84439; 84443; 84484; 85018; 85025; 85610; 85730; 86885; 86900; 86901; 87040; 87070; 93005; 93308; 94640; 94660; 94760; 96374; 99291; 99292; A6253; A6266; A6446; A6449; A9270; J0696; J1644; J1940; J2270; J3370; J3475; J3490; J7030

== ENCOUNTER 2017-09-28 09:45 | Day surgery (SDC) | payer MEDICARE, MEDICAID ==
[~2017-09-28 09:45] MED LIST changes: +ALBU6.7H INH; +AMOX-580 PO; +LEVO50TA PO; +POTA20TA19 PO
[2017-09-28] MEDS ORDERED: LIDOcaine 2% 5ml jelly ONE ×2 (10:04→11:56)
== END 2017-09-28 12:30 | disposition home or self-care (01) ==
LOC: WOUND CARE 09:45
PROVIDERS: ATTEND Surgery
DX: T81.89XA Other complications of procedures, not elsewhere classified, initial encounter (principal); I13.0 Hypertensive heart and chronic kidney disease with heart failure and stage 1 through stage 4 chronic kidney disease, or unspecified chronic kidney disease; N18.4 Chronic kidney disease, stage 4 (severe); I50.9 Heart failure, unspecified; J44.1 Chronic obstructive pulmonary disease with (acute) exacerbation; K21.9 Gastro-esophageal reflux disease without esophagitis; E78.5 Hyperlipidemia, unspecified; E03.9 Hypothyroidism, unspecified; F32.9 Major depressive disorder, single episode, unspecified; F17.210 Nicotine dependence, cigarettes, uncomplicated; E78.00 Pure hypercholesterolemia, unspecified; M19.90 Unspecified osteoarthritis, unspecified site; B19.20 Unspecified viral hepatitis C without hepatic coma; F41.1 Generalized anxiety disorder; I48.91 Unspecified atrial fibrillation; Z86.73 Personal history of transient ischemic attack (TIA), and cerebral infarction without residual deficits; X58.XXXA Exposure to other specified factors, initial encounter; Y93.89 Activity, other specified; Y92.89 Other specified places as the place of occurrence of the external cause; Y99.8 Other external cause status
CPT/HCPCS: 11045; 97605

== ENCOUNTER 2017-10-01 23:19 | Inpatient (IN) | payer MEDICARE, MEDICAID ==
[~2017-10-01] VITALS: Ht 160 cm; Wt 55.3 kg
[~2017-10-01 23:19] MED LIST changes: -LORA-269 PO; -NICO-631 TD; -TRAM50TA2 PO
[2017-10-01] MEDS ORDERED: nitroGLYCERIN-Tridil 50MG/D5W 250 ML IV SCH (23:30)
[2017-10-01 23:52] LABS: BASOPHILS % (AUTO) 0.2 % (0-1); EOSINOPHILS # (AUTO) 0.4 X10'3 (0-0.9); EOSINOPHILS % (AUTO) 1.9 % (0-6); HEMOGLOBIN 10.7 g/dl (12.0-16.0); LYMPHOCYTES % (AUTO) 35.6 % (21-51); MEAN CORPUSCULAR HEMOGLOBIN 30.6 PG (27.0-31.0); MEAN CORPUSCULAR HGB CONC 32.4 % (33.0-36.5); MEAN CORPUSCULAR VOLUME 94.2 FL (78-98); MEAN PLATELET VOLUME 7.3 FL (7.4-10.4); MONOCYTES # (AUTO) 1.4 X10'3 (0-0.9); MONOCYTES % (AUTO) 6.9 % (2-12); NEUTROPHILS # (AUTO) 10.8 X10'3 (1.8-7.7); NEUTROPHILS % (AUTO) 55.4 % (42-75); PLATELET COUNT 521 X10'3 (140-440); RED BLOOD COUNT 3.51 X10'6 (4.20-5.60); WHITE BLOOD COUNT 19.5 X10'3 (4.5-11.0)
[2017-10-01 23:54] LABS: INR 1.1 INR; PARTIAL THROMBOPLASTIN TIME 24 SECONDS (22-32); PROTHROMBIN TIME 10.9 SECONDS (9.0-12.0)
[2017-10-02 00:07] LABS: ALANINE AMINOTRANSFERASE 43 U/L (12-78); ALBUMIN 2.4 G/DL (3.4-5.0); ALBUMIN/GLOBULIN RATIO 0.4 (1.1-1.5); ALKALINE PHOSPHATASE 173 IU/L (46-116); ANION GAP 14 (8-16); ASPARTATE AMINO TRANSFERASE 56 U/L (10-37); BILIRUBIN,TOTAL 0.3 MG/DL (0.1-1.0); BLOOD UREA NITROGEN 10 MG/DL (7-18); BUN/CREATININE RATIO 8.7 (6.6-38.0); CALCIUM 8.1 MG/DL (8.5-10.1); CHLORIDE 103 MMOL/L (99-107); CREATININE 1.15 MG/DL (0.40-0.90); MAGNESIUM 1.7 MG/DL (1.5-2.4); PHOSPHORUS 5.6 MG/DL (2.3-4.5); POTASSIUM 5.3 MMOL/L (3.5-5.1); SODIUM 138 MMOL/L (135-145); TOTAL CARBON DIOXIDE 21.3 MMOL/L (24-32); TOTAL PROTEIN 8.4 G/DL (6.4-8.2); eGFR 47 ML/MIN
[2017-10-02 00:10] LABS: GLUCOSE 211 MG/DL (70-104)
[2017-10-02] MEDS ORDERED: furosemide 10 MG/1 ML 10ml inj IV ONE (00:20)
[2017-10-02 01:01] LABS: ABG BASE EXCESS -2.5 mmol/L (-2.0-3.0); ABG HCO3 22.7 mmol/L (22.0-26.0); ABG OXYGEN SATURATION 98.7 % (95-98); ABG PCO2 (T) 40.6 mmHg (32.0-45.0); ABG PH (T) 7.365 (7.350-7.450); ABG PO2 (T) 152.5 mmHg (83-108); ALLEN'S TEST Positive; FCOHb 0.7 % (0.5-1.5); FMetHb 0.1 % (0.3-1.12); FO2Hb 97.9 % (94-100); MINUTE VOLUME 19 L/min; PATIENT TEMPERATURE 36.7; RESPIRATORY RATE 20 b/min; RESPIRATORY RATE (OBSERVED) 24 b/min; TOTAL HEMOGLOBIN 10.8 G/dl (12.0-16.0)
[2017-10-02] MEDS ORDERED: AMIO200T57 PO (02:11)
[2017-10-02] MEDS ORDERED: LISI10TA4 PO (02:11)
[2017-10-02] MEDS ORDERED: ATEN-169 PO (02:11)
[2017-10-02] MEDS ORDERED: acetaminophen 325mg tablet PO PRN ×2 (02:20)
[2017-10-02] MEDS ORDERED: ondansetron/PF 4mg/2ml inj IV PRN (02:20)
[2017-10-02] MEDS ORDERED: ipratropium/albuterol 3ml nebule NEB PRN (02:25)
[2017-10-02] MEDS ORDERED: levoFLOXACIN-Levaquin 500mg/D5 100 ML IV ONE (02:40)
[2017-10-02 02:59] LABS: ALANINE AMINOTRANSFERASE 44 U/L (12-78); ALBUMIN 2.4 G/DL (3.4-5.0); ALBUMIN/GLOBULIN RATIO 0.4 (1.1-1.5); ALKALINE PHOSPHATASE 165 IU/L (46-116); ASPARTATE AMINO TRANSFERASE 50 U/L (10-37); BILIRUBIN,TOTAL 0.4 MG/DL (0.1-1.0); TOTAL PROTEIN 8.4 G/DL (6.4-8.2)
[2017-10-02 03:02] LABS: BILIRUBIN,DIRECT 0.2 MG/DL (0-0.3)
[2017-10-02 03:30] LABS: URINE AMPHETAMINE SCREEN NEGATIVE (Neg); URINE BARBITUATE SCREEN NEGATIVE (Neg); URINE BENZODIAZEPINES SCREEN NEGATIVE (Neg); URINE CANNABINOID SCREEN NEGATIVE (Neg); URINE COCAINE SCREEN NEGATIVE (Neg); URINE METHADONE SCREEN NEGATIVE (Neg); URINE OPIATE SCREEN NEGATIVE (Neg); URINE PHENCYCLIDINE SCREEN NEGATIVE (Neg)
[2017-10-02] MEDS ORDERED: furosemide 10 MG/1 ML 10ml inj IV SCH (08:00)
[2017-10-02] MEDS ORDERED: atenolol 25mg tablet PO SCH (08:00)
[2017-10-02] MEDS: atorvastatin 20mg tablet PO SCH (08:39)
[2017-10-02] MEDS: amiodarone 200mg tablet PO SCH (08:39)
[2017-10-02] MEDS: pantoprazole 40mg Tablet.DR PO SCH (08:39)
[2017-10-02] MEDS: lisinopril 10 MG tablet PO SCH ×2 (08:39→20:05)
[2017-10-02] MEDS: citalopram 20mg tablet PO SCH (08:40)
[2017-10-02] MEDS: levoTHYROXINE 25mcg tablet PO SCH (08:40)
[2017-10-02] MEDS: gabapentin 300mg capsule PO SCH ×2 (08:40→20:05)
[2017-10-02] MEDS: heparin, porcine 5000 units/ml vial SQ SCH ×2 (08:43→20:06)
[2017-10-02] MEDS ORDERED: citalopram 20mg tablet PO ONE (09:15)
[2017-10-02] MEDS ORDERED: FLU VACC QS2017-18 36MOS UP/PF 60 MCG/0.5 ML SYRINGE IMVAC ONE (10:10)
[2017-10-02 13:15] VITALS: BP 152/72
[2017-10-02] MEDS: oxyCODONE/APAP 5-325mg tablet PO PRN ×2 (15:25→19:04)
[2017-10-02] MEDS ORDERED: haloperidol lactate 5mg/ml inj IM PRN (15:30)
[2017-10-02] MEDS ORDERED: haloperidol 5mg tablet PO PRN (15:30)
[2017-10-02] MEDS ORDERED: dextrose 50%-water 50ml dispensing syringe IV PRN (15:30)
[2017-10-02] MEDS ORDERED: LORazepam 2 mg/ml vial IV PRN (15:30)
[2017-10-02 18:50] VITALS: BP 160/91
[2017-10-02] MEDS: furosemide 40mg/4ml inj IV SCH (20:04)
[2017-10-02] MEDS: carvedilol 6.25mg tablet PO SCH (20:05)
[2017-10-02] MEDS ORDERED: warfarin 5mg tablet PO ONE (21:00)
[2017-10-03] MEDS: LORazepam 1 MG tablet PO PRN ×2 (00:12→14:25)
[2017-10-03] MEDS: oxyCODONE/APAP 5-325mg tablet PO PRN ×4 (00:14→21:56)
[2017-10-03 04:23] LABS: BASOPHILS # (AUTO) 0.1 X10'3 (0-0.2); BASOPHILS % (AUTO) 0.7 % (0-1); EOSINOPHILS # (AUTO) 0.2 X10'3 (0-0.9); EOSINOPHILS % (AUTO) 1.7 % (0-6); HEMATOCRIT 33.7 % (35.0-45.0); HEMOGLOBIN 11.3 g/dl (12.0-16.0); LYMPHOCYTES % (AUTO) 19.4 % (21-51); MEAN CORPUSCULAR HEMOGLOBIN 30.4 PG (27.0-31.0); MEAN CORPUSCULAR HGB CONC 33.5 % (33.0-36.5); MEAN CORPUSCULAR VOLUME 90.8 FL (78-98); MEAN PLATELET VOLUME 7.2 FL (7.4-10.4); MONOCYTES # (AUTO) 0.8 X10'3 (0-0.9); MONOCYTES % (AUTO) 7.9 % (2-12); NEUTROPHILS # (AUTO) 7.1 X10'3 (1.8-7.7); NEUTROPHILS % (AUTO) 70.3 % (42-75); PLATELET COUNT 377 X10'3 (140-440); RED BLOOD COUNT 3.71 X10'6 (4.20-5.60); RED CELL DISTRIBUTION WIDTH 16.3 % (11.5-14.5); WHITE BLOOD COUNT 10.1 X10'3 (4.5-11.0)
[2017-10-03 04:31] LABS: ALBUMIN 2.3 G/DL (3.4-5.0); ANION GAP 6 (8-16); BLOOD UREA NITROGEN 23 MG/DL (7-18); BUN/CREATININE RATIO 18.9 (6.6-38.0); CHLORIDE 97 MMOL/L (99-107); CREATININE 1.22 MG/DL (0.40-0.90); GLUCOSE 114 MG/DL (70-104); POTASSIUM 3.4 MMOL/L (3.5-5.1); SODIUM 135 MMOL/L (135-145); TOTAL CARBON DIOXIDE 31.6 MMOL/L (24-32); eGFR 44 ML/MIN
[2017-10-03 04:32] LABS: INR 2.9 INR; PROTHROMBIN TIME 28.8 SECONDS (9.0-12.0)
[2017-10-03 07:00] VITALS: BP 115/90
[2017-10-03] MEDS: pantoprazole 40mg Tablet.DR PO SCH (07:53)
[2017-10-03] MEDS: carvedilol 6.25mg tablet PO SCH ×2 (07:53→21:54)
[2017-10-03] MEDS: citalopram 20mg tablet PO SCH (07:53)
[2017-10-03] MEDS: amiodarone 200mg tablet PO SCH (07:53)
[2017-10-03] MEDS: atorvastatin 20mg tablet PO SCH (07:53)
[2017-10-03] MEDS: gabapentin 300mg capsule PO SCH ×2 (07:53→21:55)
[2017-10-03] MEDS: levoTHYROXINE 25mcg tablet PO SCH (07:53)
[2017-10-03] MEDS: lisinopril 10 MG tablet PO SCH ×3 (07:54→21:56)
[2017-10-03] MEDS: levoFLOXACIN-Levaquin 500mg/D5 100 ML IV SCH (07:55)
[2017-10-03] MEDS: heparin, porcine 5000 units/ml vial SQ SCH ×2 (07:56→22:07)
[2017-10-03] MEDS: furosemide 40mg/4ml inj IV SCH ×2 (08:04→16:40)
[2017-10-03 12:00] VITALS: BP 110/72
[2017-10-03 14:30] VITALS: BP 108/66
[2017-10-03 17:18] VITALS: BP 120/69
[2017-10-03 20:00] VITALS: BP 105/70
[2017-10-03] MEDS: lactobacillus rhamnosus 10,000 MMU CELLS/CAPSULE PO SCH (21:55)
[2017-10-04] VITALS: BP 107/80
[2017-10-04] MEDS: oxyCODONE/APAP 5-325mg tablet PO PRN ×3 (05:16→19:54)
[2017-10-04 06:05] LABS: BASOPHILS % (AUTO) 0.4 % (0-1); EOSINOPHILS # (AUTO) 0.1 X10'3 (0-0.9); EOSINOPHILS % (AUTO) 1.7 % (0-6); HEMATOCRIT 32.2 % (35.0-45.0); HEMOGLOBIN 10.7 g/dl (12.0-16.0); LYMPHOCYTES # (AUTO) 1.9 X10'3 (1.1-4.8); LYMPHOCYTES % (AUTO) 23.4 % (21-51); MEAN CORPUSCULAR HEMOGLOBIN 30.2 PG (27.0-31.0); MEAN CORPUSCULAR HGB CONC 33.3 % (33.0-36.5); MEAN CORPUSCULAR VOLUME 90.6 FL (78-98); MEAN PLATELET VOLUME 7.5 FL (7.4-10.4); MONOCYTES # (AUTO) 0.8 X10'3 (0-0.9); MONOCYTES % (AUTO) 9.8 % (2-12); NEUTROPHILS # (AUTO) 5.1 X10'3 (1.8-7.7); NEUTROPHILS % (AUTO) 64.7 % (42-75); PLATELET COUNT 342 X10'3 (140-440); RED BLOOD COUNT 3.55 X10'6 (4.20-5.60); RED CELL DISTRIBUTION WIDTH 16.3 % (11.5-14.5); WHITE BLOOD COUNT 7.9 X10'3 (4.5-11.0)
[2017-10-04 06:09] LABS: INR 1.1 INR; PROTHROMBIN TIME 11.8 SECONDS (9.0-12.0)
[2017-10-04 06:16] LABS: ALBUMIN 2.2 G/DL (3.4-5.0); ANION GAP 6 (8-16); BLOOD UREA NITROGEN 30 MG/DL (7-18); BUN/CREATININE RATIO 24.8 (6.6-38.0); CALCIUM 8.2 MG/DL (8.5-10.1); CHLORIDE 96 MMOL/L (99-107); CREATININE 1.21 MG/DL (0.40-0.90); GLUCOSE 93 MG/DL (70-104); POTASSIUM 3.4 MMOL/L (3.5-5.1); SODIUM 133 MMOL/L (135-145); TOTAL CARBON DIOXIDE 31.1 MMOL/L (24-32); eGFR 44 ML/MIN
[2017-10-04] MEDS: lactobacillus rhamnosus 10,000 MMU CELLS/CAPSULE PO SCH ×2 (07:35→19:52)
[2017-10-04] MEDS: lisinopril 10 MG tablet PO SCH ×2 (07:35→19:53)
[2017-10-04] MEDS: atorvastatin 20mg tablet PO SCH (07:35)
[2017-10-04] MEDS: gabapentin 300mg capsule PO SCH ×2 (07:35→19:52)
[2017-10-04] MEDS: heparin, porcine 5000 units/ml vial SQ SCH (07:36)
[2017-10-04] MEDS: pantoprazole 40mg Tablet.DR PO SCH (07:36)
[2017-10-04] MEDS: carvedilol 6.25mg tablet PO SCH ×2 (07:36→19:52)
[2017-10-04] MEDS: levoTHYROXINE 25mcg tablet PO SCH (07:36)
[2017-10-04] MEDS: amiodarone 200mg tablet PO SCH (07:36)
[2017-10-04] MEDS: citalopram 20mg tablet PO SCH (07:36)
[2017-10-04] MEDS: levoFLOXACIN-Levaquin 500mg/D5 100 ML IV SCH (07:37)
[2017-10-04] MEDS: furosemide 40mg/4ml inj IV SCH (07:44)
[2017-10-04 08:06] VITALS: BP 118/71
[2017-10-04] MEDS: LORazepam 1 MG tablet PO PRN ×4 (08:49→20:03)
[2017-10-04] MEDS ORDERED: potassium Cl 40MEQ/NS 500ml 500 ML IV PRN ×2 (11:00)
[2017-10-04] MEDS ORDERED: potassium Cl 20 mEq SR tablet PO PRN (11:00)
[2017-10-04] MEDS: K and/or MAG REPLACEMENT MC SCH (11:16)
[2017-10-04] MEDS: potassium Cl 20 mEq SR tablet PO PRN ×2 (11:21→17:26)
[2017-10-04 13:37] VITALS: BP 98/62
[2017-10-04] MEDS: enoxaparin 100mg/ml syringe SUBCUT SCH (19:53)
[2017-10-04 20:00] VITALS: BP 128/65
[2017-10-04] MEDS ORDERED: warfarin 3mg tablet PO ONE (21:00)
[2017-10-05] VITALS: BP 130/68
[2017-10-05] MEDS: oxyCODONE/APAP 5-325mg tablet PO PRN ×2 (02:16→08:27)
[2017-10-05] MEDS: LORazepam 1 MG tablet PO PRN ×4 (02:16→10:58)
[2017-10-05 06:23] LABS: INR 1.1 INR; PROTHROMBIN TIME 11.2 SECONDS (9.0-12.0)
[2017-10-05 06:25] LABS: BASOPHILS % (AUTO) 0.7 % (0-1); EOSINOPHILS # (AUTO) 0.1 X10'3 (0-0.9); HEMOGLOBIN 10.3 g/dl (12.0-16.0); LYMPHOCYTES # (AUTO) 1.6 X10'3 (1.1-4.8); LYMPHOCYTES % (AUTO) 24.2 % (21-51); MEAN CORPUSCULAR HEMOGLOBIN 30.1 PG (27.0-31.0); MEAN CORPUSCULAR HGB CONC 33.3 % (33.0-36.5); MEAN CORPUSCULAR VOLUME 90.5 FL (78-98); MEAN PLATELET VOLUME 7.9 FL (7.4-10.4); MONOCYTES # (AUTO) 0.7 X10'3 (0-0.9); MONOCYTES % (AUTO) 10.1 % (2-12); NEUTROPHILS # (AUTO) 4.3 X10'3 (1.8-7.7); PLATELET COUNT 310 X10'3 (140-440); RED BLOOD COUNT 3.42 X10'6 (4.20-5.60); RED CELL DISTRIBUTION WIDTH 16.1 % (11.5-14.5); WHITE BLOOD COUNT 6.7 X10'3 (4.5-11.0)
[2017-10-05 06:45] LABS: ALBUMIN 2.3 G/DL (3.4-5.0); ANION GAP 5 (8-16); BLOOD UREA NITROGEN 29 MG/DL (7-18); BUN/CREATININE RATIO 20.9 (6.6-38.0); CALCIUM 8.5 MG/DL (8.5-10.1); CHLORIDE 96 MMOL/L (99-107); CREATININE 1.39 MG/DL (0.40-0.90); GLUCOSE 102 MG/DL (70-104); POTASSIUM 3.8 MMOL/L (3.5-5.1); SODIUM 132 MMOL/L (135-145); eGFR 38 ML/MIN
[2017-10-05] MEDS: K and/or MAG REPLACEMENT MC SCH (07:53)
[2017-10-05 07:58] VITALS: BP 107/69
[2017-10-05] MEDS: gabapentin 300mg capsule PO SCH (08:01)
[2017-10-05] MEDS: levoTHYROXINE 25mcg tablet PO SCH (08:01)
[2017-10-05] MEDS: lactobacillus rhamnosus 10,000 MMU CELLS/CAPSULE PO SCH (08:01)
[2017-10-05] MEDS: pantoprazole 40mg Tablet.DR PO SCH (08:01)
[2017-10-05] MEDS: furosemide 40mg/4ml inj IV SCH (08:02)
[2017-10-05] MEDS: atorvastatin 20mg tablet PO SCH (08:02)
[2017-10-05] MEDS: lisinopril 10 MG tablet PO SCH (08:02)
[2017-10-05] MEDS: citalopram 20mg tablet PO SCH (08:02)
[2017-10-05] MEDS: amiodarone 200mg tablet PO SCH (08:03)
[2017-10-05] MEDS: carvedilol 6.25mg tablet PO SCH (08:03)
[2017-10-05] MEDS: enoxaparin 100mg/ml syringe SUBCUT SCH (08:04)
[2017-10-05] MEDS: levoFLOXACIN-Levaquin 500mg/D5 100 ML IV SCH (08:06)
[2017-10-05 08:18] VITALS: BP 107/69
[2017-10-05 12:11] VITALS: BP 106/55
[2017-10-05] MEDS ORDERED: OXYC-145 PO (12:30)
[2017-10-05] MEDS ORDERED: APIX5TAB3 PO (12:30)
[2017-10-05] MEDS ORDERED: ALPR1TAB2 PO (12:31)
[2017-10-05] MEDS ORDERED: FURO-150 PO (12:40)
[2017-10-05] MEDS ORDERED: CARV-49 PO (12:41)
[2017-10-05] MEDS ORDERED: apixaban 5mg tablet PO SCH (20:00)
[2017-10-06] MEDS ORDERED: lisinopril 10 MG tablet PO SCH (08:00)
== END 2017-10-05 15:51 | disposition home health service (06) | DRG 189 ==
LOC: ER 23:19 → ED HOLD 10-02 02:16 → EDBEDREQ 10-02 13:28 → SUR 3N 10-02 14:26
PROVIDERS: ADMIT Family Medicine; ATTEND Family Medicine
PROC: 5A09357 Assistance with Respiratory Ventilation, Less than 24 Consecutive Hours, Continuous Positive Airway Pressure (ICD-10-PCS; 2017-10-01)
PROC: 3E0234Z Introduction of Serum, Toxoid and Vaccine into Muscle, Percutaneous Approach (ICD-10-PCS; principal; 2017-10-02)
DX: J96.01 Acute respiratory failure with hypoxia (principal); I50.23 Acute on chronic systolic (congestive) heart failure; I48.0 Paroxysmal atrial fibrillation; I42.9 Cardiomyopathy, unspecified; F11.20 Opioid dependence, uncomplicated; I48.92 Unspecified atrial flutter; J44.1 Chronic obstructive pulmonary disease with (acute) exacerbation; I11.0 Hypertensive heart disease with heart failure; E03.9 Hypothyroidism, unspecified; E78.00 Pure hypercholesterolemia, unspecified; E78.5 Hyperlipidemia, unspecified; F17.210 Nicotine dependence, cigarettes, uncomplicated; F32.9 Major depressive disorder, single episode, unspecified; G89.29 Other chronic pain; I44.7 Left bundle-branch block, unspecified; K21.9 Gastro-esophageal reflux disease without esophagitis; B19.20 Unspecified viral hepatitis C without hepatic coma; I25.10 Atherosclerotic heart disease of native coronary artery without angina pectoris; F12.90 Cannabis use, unspecified, uncomplicated; Z96.653 Presence of artificial knee joint, bilateral; Z66 Do not resuscitate; Z79.01 Long term (current) use of anticoagulants; Z88.8 Allergy status to other drugs, medicaments and biological substances; Z86.73 Personal history of transient ischemic attack (TIA), and cerebral infarction without residual deficits; Z23 Encounter for immunization
CPT/HCPCS: 36415; 36600; 71045; 80048; 80053; 80076; 80305; 82803; 82948; 83735; 83880; 84100; 84439; 84443; 84480; 84484; 85018; 85025; 85610; 85730; 87070; 93005; 94660; 94760; 96365; 96375; 99291; A4649; A6446; A6449; J1644; J1650; J1940; J1956; J2060; J3490

== ENCOUNTER 2017-10-12 10:52 | Day surgery (SDC) | payer MEDICARE, MEDICAID ==
[~2017-10-12 10:52] MED LIST changes: +ALPR1TAB2 PO; +APIX5TAB3 PO; -ATEN50TA PO; +CARV-49 PO; +FURO-150 PO; -FURO40TA4 PO; -LEVO50TA PO; -LISI-604 PO; +LISI10TA4 PO; +OXYC-145 PO; -POTA20TA19 PO; -THI100T PO
[2017-10-12] MEDS ORDERED: LIDOcaine 2% 5ml jelly ONE (11:11)
== END 2017-10-12 12:07 | disposition home or self-care (01) ==
LOC: WOUND CARE 10:52
PROVIDERS: ATTEND Surgery
DX: T81.89XD Other complications of procedures, not elsewhere classified, subsequent encounter (principal); I13.0 Hypertensive heart and chronic kidney disease with heart failure and stage 1 through stage 4 chronic kidney disease, or unspecified chronic kidney disease; I50.23 Acute on chronic systolic (congestive) heart failure; N18.4 Chronic kidney disease, stage 4 (severe); J44.1 Chronic obstructive pulmonary disease with (acute) exacerbation; K21.9 Gastro-esophageal reflux disease without esophagitis; E03.9 Hypothyroidism, unspecified; E78.00 Pure hypercholesterolemia, unspecified; M19.90 Unspecified osteoarthritis, unspecified site; B19.20 Unspecified viral hepatitis C without hepatic coma; I25.10 Atherosclerotic heart disease of native coronary artery without angina pectoris; I42.9 Cardiomyopathy, unspecified; I48.0 Paroxysmal atrial fibrillation; F32.9 Major depressive disorder, single episode, unspecified; F17.210 Nicotine dependence, cigarettes, uncomplicated; F41.1 Generalized anxiety disorder; F12.90 Cannabis use, unspecified, uncomplicated; F11.20 Opioid dependence, uncomplicated; F15.10 Other stimulant abuse, uncomplicated; F10.20 Alcohol dependence, uncomplicated; Z86.73 Personal history of transient ischemic attack (TIA), and cerebral infarction without residual deficits; Z79.01 Long term (current) use of anticoagulants; Z96.653 Presence of artificial knee joint, bilateral; Z90.49 Acquired absence of other specified parts of digestive tract; Z79.899 Other long term (current) drug therapy; Y83.8 Other surgical procedures as the cause of abnormal reaction of the patient, or of later complication, without mention of misadventure at the time of the procedure
CPT/HCPCS: 97597; A4456

== ENCOUNTER 2017-10-28 16:43 | Inpatient (IN) | payer MEDICARE, MEDICAID ==
[~2017-10-28] VITALS: Ht 160 cm; Wt 56.8 kg
[2017-10-28] MEDS ORDERED: normal saline 1000ML IV soln IVB ONE (17:25)
[2017-10-28] MEDS ORDERED: diphenhydrAMINE 50 mg/ml inj IV ONE (17:25)
[2017-10-28] MEDS ORDERED: metoclopramide 5 mg/ml inj IV ONE (17:25)
[2017-10-28 17:43] LABS: BASOPHILS % (AUTO) 0.3 % (0-1); EOSINOPHILS % (AUTO) 0.1 % (0-6); HEMATOCRIT 35.9 % (35.0-45.0); HEMOGLOBIN 12.1 g/dl (12.0-16.0); LYMPHOCYTES # (AUTO) 1.1 X10'3 (1.1-4.8); LYMPHOCYTES % (AUTO) 11.7 % (21-51); MEAN CORPUSCULAR HEMOGLOBIN 30.3 PG (27.0-31.0); MEAN CORPUSCULAR HGB CONC 33.5 % (33.0-36.5); MEAN CORPUSCULAR VOLUME 90.4 FL (78-98); MEAN PLATELET VOLUME 7.8 FL (7.4-10.4); MONOCYTES # (AUTO) 0.2 X10'3 (0-0.9); MONOCYTES % (AUTO) 2.1 % (2-12); NEUTROPHILS % (AUTO) 85.8 % (42-75); PLATELET COUNT 191 X10'3 (140-440); RED BLOOD COUNT 3.97 X10'6 (4.20-5.60); RED CELL DISTRIBUTION WIDTH 16.5 % (11.5-14.5); WHITE BLOOD COUNT 9.3 X10'3 (4.5-11.0)
[2017-10-28 18:07] LABS: ANION GAP 11 (8-16); BLOOD UREA NITROGEN 21 MG/DL (7-18); BUN/CREATININE RATIO 21.2 (6.6-38.0); CHLORIDE 96 MMOL/L (99-107); CREATININE 0.99 MG/DL (0.40-0.90); GLUCOSE 179 MG/DL (70-104); POTASSIUM 3.6 MMOL/L (3.5-5.1); SODIUM 137 MMOL/L (135-145); TOTAL CARBON DIOXIDE 29.8 MMOL/L (24-32)
[2017-10-28 18:08] LABS: ALANINE AMINOTRANSFERASE 172 U/L (12-78); ALBUMIN 3.1 G/DL (3.4-5.0); ALBUMIN/GLOBULIN RATIO 0.6 (1.1-1.5); ALKALINE PHOSPHATASE 194 IU/L (46-116); ASPARTATE AMINO TRANSFERASE 292 U/L (10-37); BILIRUBIN,TOTAL 0.9 MG/DL (0.1-1.0); CALCIUM 8.5 MG/DL (8.5-10.1); MAGNESIUM 1.3 MG/DL (1.5-2.4); TOTAL PROTEIN 8.4 G/DL (6.4-8.2); eGFR 56 ML/MIN
[2017-10-28 18:20] LABS: D-DIMER 1.61 MG/L FEU (0-0.50)
[2017-10-28] MEDS ORDERED: iohexol 350MG/ML 100ml bottle IV ONE (18:37)
[2017-10-28] MEDS ORDERED: aspirin 325mg tablet PO ONE (19:40)
[2017-10-28 19:50] LABS: INR 1.1 INR
[2017-10-28] MEDS ORDERED: magnesium hydroxide 30ml (MOM) UD suspension PO PRN (20:40)
[2017-10-28] MEDS ORDERED: mag hydrox/Alum hydrox/simeth 30ml oral suspension PO PRN (20:40)
[2017-10-28] MEDS ORDERED: ondansetron/PF 4mg/2ml inj IV PRN (20:40)
[2017-10-28] MEDS ORDERED: acetaminophen 325mg tablet PO PRN (20:40)
[2017-10-28] MEDS ORDERED: morphine 4 MG/ML inj SYRINge IV PRN (20:40)
[2017-10-28] MEDS ORDERED: ipratropium/albuterol 3ml nebule NEB PRN (20:45)
[2017-10-28] MEDS: ALPRAZolam 0.5mg tablet PO PRN (22:13)
[2017-10-28 23:35] VITALS: BP 149/94
[2017-10-28] MEDS: oxyCODONE/APAP 5-325mg tablet PO SCH (23:45)
[2017-10-29] MEDS: oxyCODONE/APAP 5-325mg tablet PO SCH ×2 (04:08→09:04)
[2017-10-29 05:08] LABS: BASOPHILS % (AUTO) 0.2 % (0-1); EOSINOPHILS # (AUTO) 0.1 X10'3 (0-0.9); EOSINOPHILS % (AUTO) 0.8 % (0-6); HEMOGLOBIN 9.8 g/dl (12.0-16.0); LYMPHOCYTES # (AUTO) 1.6 X10'3 (1.1-4.8); LYMPHOCYTES % (AUTO) 23.1 % (21-51); MEAN CORPUSCULAR HEMOGLOBIN 30.1 PG (27.0-31.0); MEAN CORPUSCULAR HGB CONC 32.5 % (33.0-36.5); MEAN CORPUSCULAR VOLUME 92.4 FL (78-98); MEAN PLATELET VOLUME 7.7 FL (7.4-10.4); MONOCYTES # (AUTO) 0.2 X10'3 (0-0.9); MONOCYTES % (AUTO) 3.3 % (2-12); NEUTROPHILS # (AUTO) 5.1 X10'3 (1.8-7.7); NEUTROPHILS % (AUTO) 72.6 % (42-75); PLATELET COUNT 122 X10'3 (140-440); RED BLOOD COUNT 3.24 X10'6 (4.20-5.60); RED CELL DISTRIBUTION WIDTH 16.6 % (11.5-14.5); WHITE BLOOD COUNT 7.1 X10'3 (4.5-11.0)
[2017-10-29 05:26] LABS: ALBUMIN 2.4 G/DL (3.4-5.0); ANION GAP 11 (8-16); BLOOD UREA NITROGEN 20 MG/DL (7-18); BUN/CREATININE RATIO 19.6 (6.6-38.0); CALCIUM 7.5 MG/DL (8.5-10.1); CHLORIDE 101 MMOL/L (99-107); CREATININE 1.02 MG/DL (0.40-0.90); GLUCOSE 98 MG/DL (70-104); POTASSIUM 3.5 MMOL/L (3.5-5.1); SODIUM 138 MMOL/L (135-145); TOTAL CARBON DIOXIDE 26.1 MMOL/L (24-32); eGFR 54 ML/MIN
[2017-10-29 07:18] VITALS: BP 130/79
[2017-10-29] MEDS ORDERED: furosemide 20MG tablet PO SCH (08:00)
[2017-10-29] MEDS ORDERED: carvedilol 6.25mg tablet PO SCH (08:00)
[2017-10-29] MEDS ORDERED: lisinopril 10 MG tablet PO SCH (08:00)
[2017-10-29] MEDS ORDERED: levoTHYROXINE 25mcg tablet PO SCH (08:00)
[2017-10-29] MEDS: pantoprazole 40mg Tablet.DR PO SCH (09:00)
[2017-10-29] MEDS: amiodarone 200mg tablet PO SCH (09:01)
[2017-10-29] MEDS: furosemide 10 MG/1 ML 10ml inj IV SCH (09:01)
[2017-10-29] MEDS: citalopram 20mg tablet PO SCH (09:01)
[2017-10-29] MEDS: apixaban 5mg tablet PO SCH ×2 (09:03→20:18)
[2017-10-29] MEDS: atorvastatin 20mg tablet PO SCH (09:03)
[2017-10-29] MEDS ORDERED: potassium Cl 40MEQ/NS 500ml 500 ML IV PRN ×2 (10:30)
[2017-10-29] MEDS ORDERED: magnesium 4gm in 100ml NS 100 ML IV PRN (10:30)
[2017-10-29] MEDS ORDERED: magnesium 2GM in 50ml NS 50 ML IV PRN (10:30)
[2017-10-29] MEDS ORDERED: potassium Cl 20 mEq SR tablet PO PRN (10:30)
[2017-10-29 11:30] VITALS: BP 146/90
[2017-10-29] MEDS ORDERED: POTA20TA19 (12:17)
[2017-10-29] MEDS ORDERED: LEVO50TA8 (12:17)
[2017-10-29] MEDS ORDERED: ALPR1TAB7 (12:18)
[2017-10-29] MEDS ORDERED: ATEN25TA8 (12:21)
[2017-10-29] MEDS: ALPRAZolam 0.5mg tablet PO PRN (12:29)
[2017-10-29] MEDS: magnesium Cl slow-release 64mg tablet PO PRN (12:29)
[2017-10-29] MEDS ORDERED: LORazepam 2 mg/ml vial IV PRN ×2 (14:25→15:45)
[2017-10-29] MEDS ORDERED: haloperidol lactate 5mg/ml inj IM ONE (14:25)
[2017-10-29] MEDS ORDERED: haloperidol lactate 5mg/ml inj IM PRN (14:55)
[2017-10-29] MEDS: oxyCODONE/APAP 5-325mg tablet PO PRN ×2 (15:04→22:45)
[2017-10-29 19:30] VITALS: BP 133/88
[2017-10-29] MEDS: carVEDilol 3.125mg tablet PO SCH (20:18)
[2017-10-29] MEDS: lisinopril 5mg tablet PO SCH (20:18)
[2017-10-29] MEDS ORDERED: QUEtiapine 25mg tablet PO SCH (21:00)
[2017-10-30 00:05] VITALS: BP 115/76
[2017-10-30] MEDS: magnesium Cl slow-release 64mg tablet PO PRN (01:09)
[2017-10-30] MEDS: oxyCODONE/APAP 5-325mg tablet PO PRN ×2 (03:15→09:00)
[2017-10-30] MEDS ORDERED: morphine 10mg/ml inj. IV PRN (05:40)
[2017-10-30 05:57] LABS: BASOPHILS % (AUTO) 0.4 % (0-1); EOSINOPHILS % (AUTO) 1.2 % (0-6); HEMATOCRIT 30.5 % (35.0-45.0); HEMOGLOBIN 10.1 g/dl (12.0-16.0); LYMPHOCYTES # (AUTO) 1.1 X10'3 (1.1-4.8); LYMPHOCYTES % (AUTO) 28.8 % (21-51); MEAN CORPUSCULAR HEMOGLOBIN 30.2 PG (27.0-31.0); MEAN CORPUSCULAR VOLUME 91.6 FL (78-98); MEAN PLATELET VOLUME 8.4 FL (7.4-10.4); MONOCYTES # (AUTO) 0.2 X10'3 (0-0.9); MONOCYTES % (AUTO) 6.4 % (2-12); NEUTROPHILS # (AUTO) 2.5 X10'3 (1.8-7.7); NEUTROPHILS % (AUTO) 63.2 % (42-75); PLATELET COUNT 102 X10'3 (140-440); RED BLOOD COUNT 3.33 X10'6 (4.20-5.60); RED CELL DISTRIBUTION WIDTH 16.1 % (11.5-14.5); WHITE BLOOD COUNT 3.9 X10'3 (4.5-11.0)
[2017-10-30 06:09] LABS: ALBUMIN 2.2 G/DL (3.4-5.0); ANION GAP 8 (8-16); BLOOD UREA NITROGEN 18 MG/DL (7-18); BUN/CREATININE RATIO 15.9 (6.6-38.0); CALCIUM 7.7 MG/DL (8.5-10.1); CHLORIDE 101 MMOL/L (99-107); CREATININE 1.13 MG/DL (0.40-0.90); GLUCOSE 111 MG/DL (70-104); POTASSIUM 3.4 MMOL/L (3.5-5.1); SODIUM 139 MMOL/L (135-145); TOTAL CARBON DIOXIDE 29.9 MMOL/L (24-32); eGFR 48 ML/MIN
[2017-10-30 07:00] VITALS: BP 132/86
[2017-10-30 07:02] LABS: MAGNESIUM 0.9 MG/DL (1.5-2.4)
[2017-10-30] MEDS: atorvastatin 20mg tablet PO SCH (07:30)
[2017-10-30] MEDS: apixaban 5mg tablet PO SCH ×2 (07:30→20:01)
[2017-10-30] MEDS: pantoprazole 40mg Tablet.DR PO SCH (07:31)
[2017-10-30] MEDS: amiodarone 200mg tablet PO SCH (07:31)
[2017-10-30] MEDS: lisinopril 5mg tablet PO SCH ×2 (07:31→19:59)
[2017-10-30] MEDS: carVEDilol 3.125mg tablet PO SCH ×2 (07:31→20:02)
[2017-10-30] MEDS: citalopram 20mg tablet PO SCH (07:31)
[2017-10-30] MEDS: furosemide 10 MG/1 ML 10ml inj IV SCH (07:32)
[2017-10-30] MEDS ORDERED: levoTHYROXINE 25mcg tablet PO SCH (08:00)
[2017-10-30] MEDS ORDERED: LORazepam 1 MG tablet PO ONE (09:05)
[2017-10-30] MEDS ORDERED: pneumococcal 23-VAL P-sac vacc 25 mcg/0.5ml vial IMVAC ONE (10:00)
[2017-10-30 11:11] VITALS: BP 124/82
[2017-10-30] MEDS: potassium Cl 20 mEq SR tablet PO PRN ×3 (12:17→21:21)
[2017-10-30] MEDS: oxyCODONE/APAP 10/325mg tablet PO PRN ×2 (13:59→19:59)
[2017-10-30] MEDS: LORazepam 2 mg/ml vial IV PRN ×2 (15:15→21:21)
[2017-10-30 18:00] VITALS: BP 135/86
[2017-10-30] MEDS ORDERED: LORazepam 2 mg/ml vial IM PRN (23:05)
[2017-10-31] MEDS: oxyCODONE/APAP 10/325mg tablet PO PRN
== END 2017-10-31 02:20 | disposition left against medical advice (07) | DRG 293 ==
LOC: ER 16:43 → ED HOLD 20:39 → SUR 3N 23:15
PROVIDERS: ADMIT Family Medicine; ATTEND Family Medicine
PROC: B32T1ZZ Computerized Tomography (CT Scan) of Left Pulmonary Artery using Low Osmolar Contrast (ICD-10-PCS; principal; 2017-10-28)
PROC: B3201ZZ Computerized Tomography (CT Scan) of Thoracic Aorta using Low Osmolar Contrast (ICD-10-PCS; 2017-10-28)
PROC: B32S1ZZ Computerized Tomography (CT Scan) of Right Pulmonary Artery using Low Osmolar Contrast (ICD-10-PCS; 2017-10-28)
PROC: 3E0234Z Introduction of Serum, Toxoid and Vaccine into Muscle, Percutaneous Approach (ICD-10-PCS; 2017-10-30)
DX: I11.0 Hypertensive heart disease with heart failure (principal); E86.0 Dehydration; R16.0 Hepatomegaly, not elsewhere classified; I48.0 Paroxysmal atrial fibrillation; K76.0 Fatty (change of) liver, not elsewhere classified; E03.9 Hypothyroidism, unspecified; E78.00 Pure hypercholesterolemia, unspecified; E78.5 Hyperlipidemia, unspecified; I50.23 Acute on chronic systolic (congestive) heart failure; M47.816 Spondylosis without myelopathy or radiculopathy, lumbar region; K21.9 Gastro-esophageal reflux disease without esophagitis; K52.9 Noninfective gastroenteritis and colitis, unspecified; M19.90 Unspecified osteoarthritis, unspecified site; M48.061 Spinal stenosis, lumbar region without neurogenic claudication; F32.9 Major depressive disorder, single episode, unspecified; F41.9 Anxiety disorder, unspecified; F12.90 Cannabis use, unspecified, uncomplicated; F17.210 Nicotine dependence, cigarettes, uncomplicated; Z66 Do not resuscitate; Z88.8 Allergy status to other drugs, medicaments and biological substances; Z79.01 Long term (current) use of anticoagulants; Z79.899 Other long term (current) drug therapy; Z90.49 Acquired absence of other specified parts of digestive tract; Z86.19 Personal history of other infectious and parasitic diseases; Z86.73 Personal history of transient ischemic attack (TIA), and cerebral infarction without residual deficits; Z84.1 Family history of disorders of kidney and ureter; Z83.3 Family history of diabetes mellitus; Z82.49 Family history of ischemic heart disease and other diseases of the circulatory system; Z23 Encounter for immunization
CPT/HCPCS: 36415; 70450; 70551; 71045; 71275; 72131; 74176; 80048; 80053; 82272; 82948; 83735; 83880; 84443; 84484; 85025; 85379; 85610; 87070; 90732; 93005; 94640; 94760; 96374; 96375; 97116; 97161; 99285; A6243; A6258; A6449; J1200; J1940; J2060; J2270; J2765; J3475; J7030; Q9967

== ENCOUNTER 2017-11-17 08:50 | Inpatient (IN) | payer MEDICARE, MEDICAID ==
[~2017-11-17] VITALS: Ht 165.1 cm; Wt 67.5 kg
[2017-11-17] VITALS (17 sets, daily range): BP systolic 119–206; BP diastolic 7–127
[~2017-11-17 08:50] MED LIST changes: -ALPR1TAB2 PO; +ALPR1TAB7; -AMOX-580 PO; +ATEN25TA8; -LEVO25TA2 PO; +LEVO50TA8; -MULT-1179 PO; +POTA20TA19; -VANC750F2 IV
[2017-11-17] MEDS ORDERED: propofol 1000mg/100ml bottle 100 ML IV ONE ×2 (08:59→09:15)
[2017-11-17] MEDS ORDERED: normal saline 1000ML IV soln IV ONE (09:15)
[2017-11-17] MEDS ORDERED: vancomycin/NS 1 GM ADD-VANTAGE 250 ML IV ONE (09:15)
[2017-11-17] MEDS ORDERED: aspirin 300mg supp.rect RC ONE (09:15)
[2017-11-17] MEDS ORDERED: piperacillin/tazo 3.375gm/50ml 50 ML IV ONE (09:15)
[2017-11-17] MEDS ORDERED: etomidate 2mg/ml inj. IV ONE (09:15)
[2017-11-17] MEDS ORDERED: rocuronium 10mg/ml inj IV ONE ×2 (09:15→14:00)
[2017-11-17 09:35] LABS: ABG BASE EXCESS -8.4 mmol/L (-2.0-3.0); ABG HCO3 22.1 mmol/L (22.0-26.0); ABG OXYGEN SATURATION 85.1 % (95-98); ABG PH (T) 7.098 (7.350-7.450); ABG PO2 (T) 68.3 mmHg (83-108); ALLEN'S TEST Positive; FCOHb 0.9 % (0.5-1.5); FMetHb 0.2 % (0.3-1.12); FO2Hb 84.2 % (94-100); MINUTE VOLUME 6 L/min; PEEP 5 cm H2O; RESPIRATORY RATE 16 b/min; RESPIRATORY RATE (OBSERVED) 16 b/min; TIDAL VOLUME 350 mL; TOTAL HEMOGLOBIN 11.4 G/dl (12.0-16.0)
[2017-11-17 09:36] LABS: BASOPHILS # (AUTO) 0.1 X10'3 (0-0.2); BASOPHILS % (AUTO) 0.8 % (0-1); EOSINOPHILS # (AUTO) 0.1 X10'3 (0-0.9); EOSINOPHILS % (AUTO) 0.7 % (0-6); HEMATOCRIT 31.8 % (35.0-45.0); HEMOGLOBIN 10.2 g/dl (12.0-16.0); LYMPHOCYTES # (AUTO) 3.2 X10'3 (1.1-4.8); LYMPHOCYTES % (AUTO) 33.6 % (21-51); MEAN CORPUSCULAR HEMOGLOBIN 30.4 PG (27.0-31.0); MEAN CORPUSCULAR HGB CONC 32.1 % (33.0-36.5); MEAN CORPUSCULAR VOLUME 94.7 FL (78-98); MEAN PLATELET VOLUME 8.2 FL (7.4-10.4); MONOCYTES % (AUTO) 10.9 % (2-12); NEUTROPHILS # (AUTO) 5.1 X10'3 (1.8-7.7); PLATELET COUNT 312 X10'3 (140-440); RED BLOOD COUNT 3.36 X10'6 (4.20-5.60); WHITE BLOOD COUNT 9.5 X10'3 (4.5-11.0)
[2017-11-17 09:46] LABS: INR 1.1 INR; PARTIAL THROMBOPLASTIN TIME 29 SECONDS (22-32); PROTHROMBIN TIME 11.1 SECONDS (9.0-12.0)
[2017-11-17 09:59] LABS: ALANINE AMINOTRANSFERASE 58 U/L (12-78); ALBUMIN 2.5 G/DL (3.4-5.0); ALBUMIN/GLOBULIN RATIO 0.6 (1.1-1.5); ALKALINE PHOSPHATASE 161 IU/L (46-116); ANION GAP 14 (8-16); ASPARTATE AMINO TRANSFERASE 82 U/L (10-37); BILIRUBIN,TOTAL 0.3 MG/DL (0.1-1.0); BLOOD UREA NITROGEN 11 MG/DL (7-18); BUN/CREATININE RATIO 12.5 (6.6-38.0); CALCIUM 7.5 MG/DL (8.5-10.1); CHLORIDE 103 MMOL/L (99-107); CREATININE 0.88 MG/DL (0.40-0.90); POTASSIUM 4.5 MMOL/L (3.5-5.1); SODIUM 139 MMOL/L (135-145); TOTAL CARBON DIOXIDE 22.1 MMOL/L (24-32); TOTAL PROTEIN 6.7 G/DL (6.4-8.2); eGFR 64 ML/MIN
[2017-11-17 10:02] LABS: GLUCOSE 170 MG/DL (70-104)
[2017-11-17] MEDS ORDERED: nitroGLYCERIN-Tridil 50MG/D5W 250 ML IV ONE (10:35)
[2017-11-17 10:37] LABS: ETHANOL 0.015 GM/DL (0.0-0.010); MAGNESIUM 1.6 MG/DL (1.5-2.4)
[2017-11-17 10:52] LABS: ACETAMINOPHEN < 2.0 UG/ML (10-30)
[2017-11-17] MEDS ORDERED: FENTANYL-0.9 % NACL/PF 100 ML IV PRN (10:53)
[2017-11-17] MEDS ORDERED: normal saline 1000ml 1,000 ML IV SCH (10:53)
[2017-11-17] MEDS ORDERED: propofol 1000mg/100ml bottle 100 ML IV PRN (10:53)
[2017-11-17] MEDS ORDERED: potassium Cl 40MEQ/NS 500ml 500 ML IV PRN ×2 (10:55)
[2017-11-17] MEDS ORDERED: fentaNYL/PF 50MCG/1 ML 2ML syringe IV PRN (10:55)
[2017-11-17] MEDS ORDERED: ipratropium/albuterol 3ml nebule NEB PRN (10:55)
[2017-11-17] MEDS ORDERED: potassium Cl 40MEQ/250ML bag 250 ML IV SCH (10:55)
[2017-11-17] MEDS ORDERED: potassium Cl 40MEQ/250ML bag 250 ML IV PRN (10:55)
[2017-11-17] MEDS ORDERED: ondansetron/PF 4mg/2ml inj IV PRN (10:55)
[2017-11-17] MEDS ORDERED: acetaminophen 325mg tablet PO PRN ×2 (10:55)
[2017-11-17] MEDS ORDERED: potassium Cl 20 mEq SR tablet PO PRN ×2 (10:55)
[2017-11-17 11:16] LABS: CLARITY,URINE SLIGHTLY CLOUDY (Clear); COLOR,URINE YELLOW (Yellow); GLUCOSE, URINE NEGATIVE (Neg); KETONES,URINE NEGATIVE (Neg); LEUKOCYTE ESTERASE ,URINE NEGATIVE (Neg); NITRITES, URINE NEGATIVE (Neg); OCCULT BLOOD,URINE TRACE-INTACT (Neg); PROTEIN,URINE 100 mg/dl (Neg); UROBILINOGEN,URINE 0.2 E.U/dL (0.2-1.0)
[2017-11-17 11:21] LABS: UA COLLECTION TYPE FOLEY CATH
[2017-11-17] MEDS: furosemide 40mg/4ml inj IV SCH ×2 (11:22→16:41)
[2017-11-17 11:28] LABS: URINE AMPHETAMINE SCREEN NEGATIVE (Neg); URINE BARBITUATE SCREEN NEGATIVE (Neg); URINE BENZODIAZEPINES SCREEN NEGATIVE (Neg); URINE CANNABINOID SCREEN POSITIVE (Neg); URINE COCAINE SCREEN NEGATIVE (Neg); URINE METHADONE SCREEN NEGATIVE (Neg); URINE OPIATE SCREEN POSITIVE (Neg); URINE PHENCYCLIDINE SCREEN NEGATIVE (Neg)
[2017-11-17 11:29] LABS: BACTERIA,URINE NONE SEEN /HPF (Neg); MUCUS STRANDS FEW /LPF (Neg); SQUAMOUS EPITHELIAL CELL,UR NONE SEEN /LPF (FEW); WBC,URINE 0-4 /HPF (0-4)
[2017-11-17 11:30] LABS: OVAL FAT BODIES,URINE 2+ /HPF (NEGATIVE)
[2017-11-17 11:31] LABS: AMORPHOUS URATES 1+; COARSE GRANULAR CAST 0-3 /LPF (NEGATIVE); HYALINE CASTS 0-3 /LPF (NEGATIVE); RENAL CELLS, URINE FEW /HPF; TRANSITIONAL EPI CELLS,URINE FEW /HPF
[2017-11-17] MEDS: ipratropium/albuterol 3ml nebule NEB SCH ×3 (11:56→19:09)
[2017-11-17] MEDS ORDERED: CLON0.5T4 PO (13:52)
[2017-11-17] MEDS ORDERED: SERT25TA PO (13:52)
[2017-11-17] MEDS ORDERED: etomidate 2mg/ml inj. ONE (14:00)
[2017-11-17] MEDS: levoTHYROXINE 75mcg tablet PO SCH (16:42)
[2017-11-17 17:50] LABS: ABG HCO3 27.6 mmol/L (22.0-26.0); ABG OXYGEN SATURATION 96.4 % (95-98); ABG PCO2 (T) 33.6 mmHg (32.0-45.0); ABG PH (T) 7.532 (7.350-7.450); ABG PO2 (T) 74.2 mmHg (83-108); ALLEN'S TEST Positive; FCOHb 0.3 % (0.5-1.5); FO2Hb 96.1 % (94-100); MINUTE VOLUME 9 L/min; PEEP 5 cm H2O; RESPIRATORY RATE 24 b/min; RESPIRATORY RATE (OBSERVED) 25 b/min; TOTAL HEMOGLOBIN 11.3 G/dl (12.0-16.0)
[2017-11-17] MEDS: docusate sod 100mg capsule PO SCH (19:32)
[2017-11-17] MEDS: lisinopril 10 MG tablet PO SCH (19:52)
[2017-11-17] MEDS ORDERED: carvedilol 6.25mg tablet PO SCH (20:00)
[2017-11-17] MEDS: lactobacillus rhamnosus 10,000 MMU CELLS/CAPSULE PO SCH (20:10)
[2017-11-17] MEDS: famotidine/PF 10 mg/ml inj IV SCH (20:11)
[2017-11-17] MEDS: apixaban 5mg tablet PO SCH (20:11)
[2017-11-17] MEDS ORDERED: sennosides/docusate sodium tablet PO SCH (21:00)
[2017-11-18] VITALS (12 sets, daily range): BP systolic 126–163; BP diastolic 68–87
[2017-11-18] MEDS: furosemide 40mg/4ml inj IV SCH ×2 (01:18→08:03)
[2017-11-18] MEDS: clonazePAM 0.5mg tablet PO PRN ×2 (01:42→09:32)
[2017-11-18 02:21] LABS: BASOPHILS % (AUTO) 0.4 % (0-1); EOSINOPHILS % (AUTO) 0 % (0-6); HEMATOCRIT 31.1 % (35.0-45.0); HEMOGLOBIN 10.1 g/dl (12.0-16.0); LYMPHOCYTES # (AUTO) 1.1 X10'3 (1.1-4.8); LYMPHOCYTES % (AUTO) 15.7 % (21-51); MEAN CORPUSCULAR HEMOGLOBIN 30.1 PG (27.0-31.0); MEAN CORPUSCULAR HGB CONC 32.7 % (33.0-36.5); MEAN CORPUSCULAR VOLUME 92.3 FL (78-98); MEAN PLATELET VOLUME 7.6 FL (7.4-10.4); MONOCYTES # (AUTO) 0.5 X10'3 (0-0.9); MONOCYTES % (AUTO) 6.8 % (2-12); NEUTROPHILS # (AUTO) 5.6 X10'3 (1.8-7.7); NEUTROPHILS % (AUTO) 77.1 % (42-75); PLATELET COUNT 256 X10'3 (140-440); RED BLOOD COUNT 3.37 X10'6 (4.20-5.60); RED CELL DISTRIBUTION WIDTH 18.5 % (11.5-14.5); WHITE BLOOD COUNT 7.3 X10'3 (4.5-11.0)
[2017-11-18 02:40] LABS: ALANINE AMINOTRANSFERASE 57 U/L (12-78); ALBUMIN 2.4 G/DL (3.4-5.0); ALBUMIN/GLOBULIN RATIO 0.6 (1.1-1.5); ALKALINE PHOSPHATASE 147 IU/L (46-116); ANION GAP 6 (8-16); ASPARTATE AMINO TRANSFERASE 75 U/L (10-37); BILIRUBIN,TOTAL 0.4 MG/DL (0.1-1.0); BLOOD UREA NITROGEN 14 MG/DL (7-18); BUN/CREATININE RATIO 14.3 (6.6-38.0); CALCIUM 8.2 MG/DL (8.5-10.1); CHLORIDE 102 MMOL/L (99-107); CREATININE 0.98 MG/DL (0.40-0.90); GLUCOSE 100 MG/DL (70-104); MAGNESIUM 1.4 MG/DL (1.5-2.4); PHOSPHORUS 3.8 MG/DL (2.3-4.5); POTASSIUM 3.7 MMOL/L (3.5-5.1); SODIUM 140 MMOL/L (135-145); TOTAL CARBON DIOXIDE 31.8 MMOL/L (24-32); TOTAL PROTEIN 6.4 G/DL (6.4-8.2); eGFR 57 ML/MIN
[2017-11-18] MEDS ORDERED: ipratropium/albuterol 3ml nebule NEB PRN (02:40)
[2017-11-18] MEDS: ipratropium/albuterol 3ml nebule NEB SCH ×2 (02:46→09:45)
[2017-11-18] MEDS: morphine 4 MG/ML inj SYRINge IV PRN ×2 (03:38→08:03)
[2017-11-18] MEDS ORDERED: magnesium Cl slow-release 64mg tablet PO PRN (05:40)
[2017-11-18] MEDS ORDERED: amiodarone 200mg tablet PO SCH (08:00)
[2017-11-18] MEDS ORDERED: atorvastatin 20mg tablet PO SCH (08:00)
[2017-11-18] MEDS ORDERED: citalopram 20mg tablet PO SCH (08:00)
[2017-11-18] MEDS: famotidine/PF 10 mg/ml inj IV SCH (08:00)
[2017-11-18] MEDS ORDERED: sertraline 50mg tablet PO SCH (08:00)
[2017-11-18] MEDS ORDERED: enoxaparin 40mg/0.4ml syringe SUBCUT SCH (08:00)
[2017-11-18] MEDS: docusate sod 100mg capsule PO SCH (08:02)
[2017-11-18] MEDS: lisinopril 10 MG tablet PO SCH (08:02)
[2017-11-18] MEDS: levoTHYROXINE 75mcg tablet PO SCH (08:02)
[2017-11-18] MEDS: lactobacillus rhamnosus 10,000 MMU CELLS/CAPSULE PO SCH (08:02)
[2017-11-18] MEDS: apixaban 5mg tablet PO SCH (08:03)
[2017-11-18] MEDS ORDERED: LEVO75TA7 PO (10:27)
[2017-11-18] MEDS ORDERED: FURO40TA4 PO (10:27)
[2017-11-18] MEDS ORDERED: mineral oil/petrolatum ophthal oint EACHEYE SCH (14:00)
[2017-11-19] MEDS ORDERED: lactulose 20gm/30ml cup PO PRN (10:55)
== END 2017-11-18 13:01 | disposition home or self-care (01) | DRG 208 ==
LOC: ER 08:50 → EDBD 08:50 → ED HOLD 10:53 → ICU 2S 11:53
PROVIDERS: ADMIT Internal Medicine Critical Care Medicine; ATTEND Internal Medicine Critical Care Medicine
PROC: 5A1935Z Respiratory Ventilation, Less than 24 Consecutive Hours (ICD-10-PCS; principal; 2017-11-17)
PROC: 0BH17EZ Insertion of Endotracheal Airway into Trachea, Via Natural or Artificial Opening (ICD-10-PCS; 2017-11-17)
PROC: 0D9670Z Drainage of Stomach with Drainage Device, Via Natural or Artificial Opening (ICD-10-PCS; 2017-11-17)
PROC: 02HV33Z Insertion of Infusion Device into Superior Vena Cava, Percutaneous Approach (ICD-10-PCS; 2017-11-17)
PROC: B548ZZA Ultrasonography of Superior Vena Cava, Guidance (ICD-10-PCS; 2017-11-17)
DX: J96.01 Acute respiratory failure with hypoxia (principal); I50.23 Acute on chronic systolic (congestive) heart failure; J18.9 Pneumonia, unspecified organism; E87.2 Acidosis; I11.0 Hypertensive heart disease with heart failure; I48.0 Paroxysmal atrial fibrillation; J44.0 Chronic obstructive pulmonary disease with (acute) lower respiratory infection; L03.116 Cellulitis of left lower limb; E83.51 Hypocalcemia; Z79.01 Long term (current) use of anticoagulants; B18.2 Chronic viral hepatitis C; D64.9 Anemia, unspecified; E03.9 Hypothyroidism, unspecified; I25.10 Atherosclerotic heart disease of native coronary artery without angina pectoris; E78.00 Pure hypercholesterolemia, unspecified; E78.5 Hyperlipidemia, unspecified; G89.29 Other chronic pain; K21.9 Gastro-esophageal reflux disease without esophagitis; M48.00 Spinal stenosis, site unspecified; F32.9 Major depressive disorder, single episode, unspecified; M19.90 Unspecified osteoarthritis, unspecified site; M54.9 Dorsalgia, unspecified; R73.9 Hyperglycemia, unspecified; F17.210 Nicotine dependence, cigarettes, uncomplicated; F12.90 Cannabis use, unspecified, uncomplicated; Z66 Do not resuscitate; Z96.659 Presence of unspecified artificial knee joint; Z90.49 Acquired absence of other specified parts of digestive tract; Z79.899 Other long term (current) drug therapy; Z88.8 Allergy status to other drugs, medicaments and biological substances; Z86.73 Personal history of transient ischemic attack (TIA), and cerebral infarction without residual deficits; Z83.3 Family history of diabetes mellitus
CPT/HCPCS: 36415; 36569; 36600; 70450; 71045; 80053; 80305; 80320; 80329; 81001; 82803; 82948; 83605; 83735; 83880; 84100; 84145; 84439; 84443; 84484; 85018; 85025; 85610; 85730; 87040; 87070; 87077; 87186; 87502; 87503; 93005; 94002; 94640; 94760; 96365; 96375; 97162; 99291; A6213; A6257; A6402; A6449; A7015; C1751; C1758; J1940; J2270; J2543; J2704; J3370; J3490; J7030

== ENCOUNTER 2017-11-22 20:48 | Inpatient (IN) | payer MEDICARE, MEDICAID ==
[~2017-11-22] VITALS: Ht 160 cm; Wt 57.0 kg
[~2017-11-22 20:48] MED LIST changes: +ALPR1TAB2 PO; +AMOX-580 PO; +CLON0.5T4 PO; +FURO40TA4 PO; +LEVO25TA2 PO; +LEVO75TA7 PO; +MULT-1179 PO; +SERT25TA PO; +VANC750F2 IV
[2017-11-22] MEDS ORDERED: morphine 4 MG/ML inj SYRINge IM ONE ×2 (21:10→21:55)
[2017-11-22] MEDS ORDERED: ondansetron 4mg rapidly disintigrating tab PO ONE (21:10)
[2017-11-22] MEDS ORDERED: ATEN50TA PO (23:58)
[2017-11-22] MEDS ORDERED: AMIO200T27 (23:58)
[2017-11-23] MEDS ORDERED: ondansetron 4mg rapidly disintigrating tab PO PRN (00:35)
[2017-11-23] MEDS ORDERED: HYDROmorphone inj. 0.5 MG/0.5 ML DISP.SYRIN IM PRN (00:35)
[2017-11-23] MEDS ORDERED: HYDROmorphone 1 mg/ml syringe IM PRN (00:35)
[2017-11-23] MEDS ORDERED: fentaNYL/PF 50MCG/1 ML 2ML syringe IM PRN ×2 (00:35)
[2017-11-23] MEDS ORDERED: magnesium hydroxide 30ml (MOM) UD suspension PO PRN (02:15)
[2017-11-23] MEDS ORDERED: mag hydrox/Alum hydrox/simeth 30ml oral suspension PO PRN (02:15)
[2017-11-23] MEDS ORDERED: ondansetron/PF 4mg/2ml inj IV PRN (02:15)
[2017-11-23] MEDS ORDERED: acetaminophen 325mg tablet PO PRN ×2 (02:15)
[2017-11-23 03:20] VITALS: BP 119/56
[2017-11-23] MEDS: oxyCODONE/APAP 10/325mg tablet PO PRN ×3 (03:32→13:06)
[2017-11-23] MEDS: atenolol 50mg tablet PO SCH (07:14)
[2017-11-23 07:15] VITALS: BP 127/67
[2017-11-23] MEDS: amiodarone 200mg tablet PO SCH (07:16)
[2017-11-23] MEDS: levoTHYROXINE 75mcg tablet PO SCH (07:18)
[2017-11-23] MEDS: clonazePAM 0.5mg tablet PO SCH ×3 (07:19→20:20)
[2017-11-23] MEDS: apixaban 5mg tablet PO SCH ×2 (07:19→20:20)
[2017-11-23] MEDS ORDERED: lisinopril 10 MG tablet PO SCH ×2 (08:00→20:00)
[2017-11-23] MEDS ORDERED: CITALOpram 10mg tablet PO SCH (08:00)
[2017-11-23] MEDS ORDERED: furosemide 20MG tablet PO SCH (08:00)
[2017-11-23] MEDS: gabapentin 300mg capsule PO SCH ×2 (09:31→20:20)
[2017-11-23 10:00] VITALS: BP 115/69
[2017-11-23] MEDS: morphine 4 MG/ML inj SYRINge IV PRN (14:01)
[2017-11-23] MEDS ORDERED: albuterol 2.5 MG/3 ML nebule NEB PRN (16:30)
[2017-11-23] MEDS ORDERED: apixaban 5mg tablet PO SCH (20:00)
[2017-11-23] MEDS ORDERED: non-formulary drug (Albuterol Sulfate (Proventil Hfa) 2 PUFFS) INH SCH (20:00)
[2017-11-23] MEDS ORDERED: gabapentin 300mg capsule PO SCH (20:00)
[2017-11-23] MEDS ORDERED: atenolol 50mg tablet PO SCH (20:00)
[2017-11-23] MEDS: lactobacillus rhamnosus 10,000 MMU CELLS/CAPSULE PO SCH (20:20)
[2017-11-23] MEDS: oxyCODONE/APAP 5-325mg tablet PO PRN (20:20)
[2017-11-23] MEDS: lisinopril 5mg tablet PO SCH (20:20)
[2017-11-23 20:29] VITALS: BP 134/67
[2017-11-23] MEDS ORDERED: clonazePAM 0.5mg tablet PO SCH (21:00)
[2017-11-23 22:00] VITALS: BP 163/85
[2017-11-24] MEDS: oxyCODONE/APAP 10/325mg tablet PO PRN ×6 (00:46→23:35)
[2017-11-24 05:00] VITALS: BP 155/77
[2017-11-24] MEDS ORDERED: levoTHYROXINE 75mcg tablet PO SCH (07:00)
[2017-11-24] MEDS: atenolol 50mg tablet PO SCH (07:25)
[2017-11-24] MEDS: pantoprazole 40mg Tablet.DR PO SCH (07:32)
[2017-11-24] MEDS: morphine 4 MG/ML inj SYRINge IV PRN ×3 (07:32→20:36)
[2017-11-24] MEDS: gabapentin 300mg capsule PO SCH ×2 (07:33→20:34)
[2017-11-24] MEDS: lisinopril 5mg tablet PO SCH ×2 (07:33→20:34)
[2017-11-24] MEDS: apixaban 5mg tablet PO SCH ×2 (07:33→20:35)
[2017-11-24] MEDS: furosemide 40mg tablet PO SCH (07:33)
[2017-11-24] MEDS: atorvastatin 20mg tablet PO SCH (07:33)
[2017-11-24] MEDS: clonazePAM 0.5mg tablet PO SCH ×3 (07:33→20:34)
[2017-11-24] MEDS: levoTHYROXINE 75mcg tablet PO SCH (07:34)
[2017-11-24] MEDS: lactobacillus rhamnosus 10,000 MMU CELLS/CAPSULE PO SCH ×2 (07:34→20:34)
[2017-11-24] MEDS: citalopram 20mg tablet PO SCH (07:34)
[2017-11-24] MEDS: amiodarone 200mg tablet PO SCH (07:34)
[2017-11-24] MEDS ORDERED: furosemide 40mg tablet PO SCH (08:00)
[2017-11-24] MEDS ORDERED: non-formulary drug (Omeprazole 1 CAP) PO SCH (08:00)
[2017-11-24 10:00] VITALS: BP 132/54
[2017-11-24 17:00] VITALS: BP 150/70
[2017-11-24 18:00] VITALS: BP 150/70
[2017-11-24 22:00] VITALS: BP 141/61
[2017-11-25] MEDS: oxyCODONE/APAP 5-325mg tablet PO PRN ×2 (02:14→07:08)
[2017-11-25] MEDS: oxyCODONE/APAP 10/325mg tablet PO PRN ×2 (05:27→09:58)
[2017-11-25 06:00] VITALS: BP 161/73
[2017-11-25] MEDS: amiodarone 200mg tablet PO SCH (07:07)
[2017-11-25] MEDS: clonazePAM 0.5mg tablet PO SCH (07:07)
[2017-11-25] MEDS: atenolol 50mg tablet PO SCH (07:07)
[2017-11-25] MEDS: atorvastatin 20mg tablet PO SCH (07:07)
[2017-11-25] MEDS: lisinopril 5mg tablet PO SCH (07:07)
[2017-11-25] MEDS: citalopram 20mg tablet PO SCH (07:08)
[2017-11-25] MEDS: lactobacillus rhamnosus 10,000 MMU CELLS/CAPSULE PO SCH (07:08)
[2017-11-25] MEDS: apixaban 5mg tablet PO SCH (07:08)
[2017-11-25] MEDS: levoTHYROXINE 75mcg tablet PO SCH (07:09)
[2017-11-25] MEDS: gabapentin 300mg capsule PO SCH (07:09)
[2017-11-25] MEDS: pantoprazole 40mg Tablet.DR PO SCH (07:09)
[2017-11-25] MEDS: furosemide 40mg tablet PO SCH (07:09)
[2017-11-25] MEDS ORDERED: OXYC-145 PO (09:20)
== END 2017-11-25 10:00 | disposition home health service (06) | DRG 552 ==
LOC: ER 20:49 → ED HOLD 11-23 02:12 → ORTHO 4S 11-23 03:15
PROVIDERS: ADMIT Family Medicine; ATTEND Internal Medicine
PROC: 2W3LXYZ Immobilization of Right Lower Extremity using Other Device (ICD-10-PCS; principal; 2017-11-23)
DX: S32.10XA Unspecified fracture of sacrum, initial encounter for closed fracture (principal); I48.91 Unspecified atrial fibrillation; S32.511A Fracture of superior rim of right pubis, initial encounter for closed fracture; I50.9 Heart failure, unspecified; I11.0 Hypertensive heart disease with heart failure; S32.512A Fracture of superior rim of left pubis, initial encounter for closed fracture; S82.831A Other fracture of upper and lower end of right fibula, initial encounter for closed fracture; E03.9 Hypothyroidism, unspecified; E78.5 Hyperlipidemia, unspecified; B19.20 Unspecified viral hepatitis C without hepatic coma; M54.9 Dorsalgia, unspecified; G89.29 Other chronic pain; F12.90 Cannabis use, unspecified, uncomplicated; F17.210 Nicotine dependence, cigarettes, uncomplicated; K21.9 Gastro-esophageal reflux disease without esophagitis; W01.0XXA Fall on same level from slipping, tripping and stumbling without subsequent striking against object, initial encounter; Z82.49 Family history of ischemic heart disease and other diseases of the circulatory system; Z86.73 Personal history of transient ischemic attack (TIA), and cerebral infarction without residual deficits; Z83.3 Family history of diabetes mellitus; Z88.8 Allergy status to other drugs, medicaments and biological substances; Z90.49 Acquired absence of other specified parts of digestive tract; Y93.89 Activity, other specified; Y92.89 Other specified places as the place of occurrence of the external cause; Y99.8 Other external cause status
CPT/HCPCS: 72170; 72192; 73502; 73610; 73630; 87070; 96372; 97110; 97116; 97162; 97530; 99285; A4315; A6449; J2270; J3010

== ENCOUNTER 2018-02-19 13:59 | Emergency (ER) | payer MEDICARE, MEDICAID ==
[~2018-02-19] VITALS: Ht 160 cm; Wt 55.0 kg
[~2018-02-19 13:59] MED LIST changes: +ACET-812 PO; -ALPR1TAB2 PO; -ALPR1TAB7; +AMIO200T40 PO; -AMIO200T57 PO; -AMOX-580 PO; +ATEN25TA PO; -ATEN25TA8; -CARV-49 PO; +CITA-278 PO; -CITA20TA11 PO; +CLON0.5T12 PO; -CLON0.5T4 PO; +CYCL-1 PO; -FURO-150 PO; +FURO20TA4 PO; -FURO40TA4 PO; +GABA-532 PO; -GABA300C PO; -LEVO25TA2 PO; -LEVO50TA8; +LIDO700A32 PO; +MELO-100 PO; -MULT-1179 PO; -POTA20TA19; -SERT25TA PO; -VANC750F2 IV
[2018-02-19 15:12] VITALS: BP 154/81
[2018-02-19] MEDS ORDERED: HYDR-569 PO (15:30)
[2018-02-19] MEDS ORDERED: CEPH250T PO (15:31)
[2018-02-19] MEDS ORDERED: cephalexin 500mg capsule PO ONE (16:30)
== END 2018-02-19 16:38 | disposition home or self-care (01) ==
LOC: ER 14:00
DX: S62.397A Other fracture of fifth metacarpal bone, left hand, initial encounter for closed fracture (principal); S61.512A Laceration without foreign body of left wrist, initial encounter; I48.91 Unspecified atrial fibrillation; I11.0 Hypertensive heart disease with heart failure; I50.9 Heart failure, unspecified; J44.9 Chronic obstructive pulmonary disease, unspecified; K21.9 Gastro-esophageal reflux disease without esophagitis; E03.9 Hypothyroidism, unspecified; F12.90 Cannabis use, unspecified, uncomplicated; F11.90 Opioid use, unspecified, uncomplicated; M19.90 Unspecified osteoarthritis, unspecified site; Z86.14 Personal history of Methicillin resistant Staphylococcus aureus infection; Z86.19 Personal history of other infectious and parasitic diseases; Z86.73 Personal history of transient ischemic attack (TIA), and cerebral infarction without residual deficits; Z90.49 Acquired absence of other specified parts of digestive tract; Z98.890 Other specified postprocedural states; Z88.8 Allergy status to other drugs, medicaments and biological substances; Z79.899 Other long term (current) drug therapy; W18.39XA Other fall on same level, initial encounter; Y93.89 Activity, other specified; Y92.89 Other specified places as the place of occurrence of the external cause; Y99.8 Other external cause status
CPT/HCPCS: 29125; 73110; 73130; 99284; A6222

== ENCOUNTER 2018-04-24 11:53 | Emergency (ER) | payer MEDICARE, MEDICAID ==
[~2018-04-24] VITALS: Ht 160 cm; Wt 56.1 kg
[~2018-04-24 11:53] MED LIST changes: -ACET-812 PO; +HYDR-4383 PO; -OXYC-145 PO
[2018-04-24 12:04] VITALS: BP 163/108
[2018-04-24] MEDS ORDERED: LORazepam 1 MG tablet PO ONE (12:45)
[2018-04-24] MEDS ORDERED: TETanus/Pertussis (Acell)/Diphther VAC/PF (Tdap-Adult) 0.5ml syringe IM ONE (12:45)
[2018-04-24] MEDS ORDERED: CEPH-571 PO (12:49)
== END 2018-04-24 13:10 | disposition home or self-care (01) ==
LOC: ER 11:54
DX: L03.113 Cellulitis of right upper limb (principal); F41.9 Anxiety disorder, unspecified; I11.0 Hypertensive heart disease with heart failure; I50.9 Heart failure, unspecified; I25.10 Atherosclerotic heart disease of native coronary artery without angina pectoris; E78.00 Pure hypercholesterolemia, unspecified; J44.9 Chronic obstructive pulmonary disease, unspecified; K21.9 Gastro-esophageal reflux disease without esophagitis; M19.90 Unspecified osteoarthritis, unspecified site; E03.9 Hypothyroidism, unspecified; F32.9 Major depressive disorder, single episode, unspecified; F12.90 Cannabis use, unspecified, uncomplicated; F11.90 Opioid use, unspecified, uncomplicated; Z88.8 Allergy status to other drugs, medicaments and biological substances; Z90.49 Acquired absence of other specified parts of digestive tract; Z86.73 Personal history of transient ischemic attack (TIA), and cerebral infarction without residual deficits
CPT/HCPCS: 90471; 90715; 99283

== ENCOUNTER 2018-05-07 11:49 | Emergency (ER) | payer MEDICARE, MEDICAID ==
[~2018-05-07] VITALS: Ht 160 cm; Wt 56.8 kg
[~2018-05-07 11:49] MED LIST changes: +CEPH-571 PO; +SULF1TAB48 PO
[2018-05-07] MEDS ORDERED: normal saline 1000ML IV soln IV ONE (12:00)
[2018-05-07] MEDS ORDERED: metoprolol tartrate 1mg/ml inj IV ONE (12:00)
[2018-05-07] MEDS ORDERED: LORazepam 2 mg/ml vial IV ONE (12:05)
[2018-05-07] MEDS: magnesium 1gm/100ml D5W IVPB 100 ML IV SCH ×2 (12:06→13:06)
[2018-05-07] MEDS ORDERED: diltiazem 5mg/ml 5ml inj. IV ONE (12:10)
[2018-05-07 12:12] LABS: BASOPHILS % (AUTO) 0.1 % (0-1); EOSINOPHILS % (AUTO) 0 % (0-6); HEMATOCRIT 39.1 % (35.0-45.0); HEMOGLOBIN 12.7 g/dl (12.0-16.0); LYMPHOCYTES # (AUTO) 0.6 X10'3 (1.1-4.8); LYMPHOCYTES % (AUTO) 7.1 % (21-51); MEAN CORPUSCULAR HEMOGLOBIN 28.7 PG (27.0-31.0); MEAN CORPUSCULAR HGB CONC 32.5 % (33.0-36.5); MEAN CORPUSCULAR VOLUME 88.3 FL (78-98); MEAN PLATELET VOLUME 7.6 FL (7.4-10.4); MONOCYTES # (AUTO) 0.4 X10'3 (0-0.9); NEUTROPHILS # (AUTO) 7.8 X10'3 (1.8-7.7); NEUTROPHILS % (AUTO) 87.8 % (42-75); PLATELET COUNT 291 X10'3 (140-440); RED BLOOD COUNT 4.43 X10'6 (4.20-5.60); RED CELL DISTRIBUTION WIDTH 19.9 % (11.5-14.5); WHITE BLOOD COUNT 8.9 X10'3 (4.5-11.0)
[2018-05-07 12:27] LABS: PARTIAL THROMBOPLASTIN TIME 25 SECONDS (22-32); PROTHROMBIN TIME 10.5 SECONDS (9.0-12.0)
[2018-05-07 12:46] LABS: ALANINE AMINOTRANSFERASE 74 U/L (12-78); ALBUMIN 3.1 G/DL (3.4-5.0); ALBUMIN/GLOBULIN RATIO 0.6 (1.1-1.5); ALKALINE PHOSPHATASE 189 IU/L (46-116); ANION GAP 17 (8-16); ASPARTATE AMINO TRANSFERASE 154 U/L (10-37); BILIRUBIN,TOTAL 0.5 MG/DL (0.1-1.0); BLOOD UREA NITROGEN 13 MG/DL (7-18); BUN/CREATININE RATIO 17.6 (6.6-38.0); CALCIUM 7.7 MG/DL (8.5-10.1); CHLORIDE 106 MMOL/L (99-107); CREATININE 0.74 MG/DL (0.40-0.90); GLUCOSE 230 MG/DL (70-104); SODIUM 146 MMOL/L (135-145); TOTAL CARBON DIOXIDE 23.3 MMOL/L (24-32); TOTAL PROTEIN 8.2 G/DL (6.4-8.2); eGFR 78 ML/MIN
[2018-05-07 12:54] LABS: ETHANOL 0.097 GM/DL (0.0-0.010)
[2018-05-07 13:00] LABS: POTASSIUM 3.4 MMOL/L (3.5-5.1)
[2018-05-07] MEDS ORDERED: normal saline 1000ML IV soln IVB ONE (13:05)
[2018-05-07] MEDS ORDERED: potassium Cl oral solution 20 MEQ/15 ML PO ONE (13:05)
[2018-05-07 13:22] LABS: CLARITY,URINE CLEAR (Clear); COLOR,URINE YELLOW (Yellow); GLUCOSE, URINE NEGATIVE (Neg); KETONES,URINE NEGATIVE (Neg); LEUKOCYTE ESTERASE ,URINE NEGATIVE (Neg); NITRITES, URINE NEGATIVE (Neg); OCCULT BLOOD,URINE TRACE-INTACT (Neg); PROTEIN,URINE TRACE mg/dl (Neg); UROBILINOGEN,URINE 0.2 E.U/dL (0.2-1.0)
[2018-05-07 13:25] LABS: UA COLLECTION TYPE OTHER
[2018-05-07 13:26] LABS: URINE AMPHETAMINE SCREEN NEGATIVE (Neg); URINE BARBITUATE SCREEN NEGATIVE (Neg); URINE BENZODIAZEPINES SCREEN NEGATIVE (Neg); URINE CANNABINOID SCREEN POSITIVE (Neg); URINE COCAINE SCREEN NEGATIVE (Neg); URINE METHADONE SCREEN NEGATIVE (Neg); URINE OPIATE SCREEN POSITIVE (Neg); URINE PHENCYCLIDINE SCREEN NEGATIVE (Neg)
[2018-05-07 13:44] LABS: ANISOCYTOSIS 2+; PLATELET ESTIMATE NORMAL
[2018-05-07 14:10] LABS: BACTERIA,URINE FEW /HPF (Neg); RBC,URINE NONE SEEN /HPF (0-2); SQUAMOUS EPITHELIAL CELL,UR FEW /LPF (FEW); WBC,URINE 0-4 /HPF (0-4)
[2018-05-07] MEDS ORDERED: LORazepam 0.5 MG tablet PO ONE (14:15)
[2018-05-07] MEDS ORDERED: acetaminophen 325mg tablet PO ONE (16:20)
[2018-05-07 16:25] VITALS: BP 167/112
[2018-05-08] MEDS ORDERED: CEPH250C PO (09:46)
[2018-05-08] MEDS ORDERED: SERT50TA10 PO (09:48)
[2018-05-08] MEDS ORDERED: LEVO50TA8 PO (09:48)
[2018-05-08] MEDS ORDERED: CLON-528 PO (09:50)
[2018-05-08] MEDS ORDERED: ATOR40TA72 PO (09:51)
== END 2018-05-07 16:40 | disposition home or self-care (01) ==
LOC: ER 11:49
DX: I48.0 Paroxysmal atrial fibrillation (principal); E86.0 Dehydration; E87.6 Hypokalemia; E03.9 Hypothyroidism, unspecified; F10.20 Alcohol dependence, uncomplicated; I11.0 Hypertensive heart disease with heart failure; I50.9 Heart failure, unspecified; E78.00 Pure hypercholesterolemia, unspecified; J44.9 Chronic obstructive pulmonary disease, unspecified; K21.9 Gastro-esophageal reflux disease without esophagitis; M19.90 Unspecified osteoarthritis, unspecified site; F12.90 Cannabis use, unspecified, uncomplicated; F11.90 Opioid use, unspecified, uncomplicated; Z86.73 Personal history of transient ischemic attack (TIA), and cerebral infarction without residual deficits; Z86.14 Personal history of Methicillin resistant Staphylococcus aureus infection; Z90.49 Acquired absence of other specified parts of digestive tract; Z98.890 Other specified postprocedural states; Z88.8 Allergy status to other drugs, medicaments and biological substances; Z79.01 Long term (current) use of anticoagulants; Z79.2 Long term (current) use of antibiotics; Z79.899 Other long term (current) drug therapy; Y90.0 Blood alcohol level of less than 20 mg/100 ml
CPT/HCPCS: 36415; 71045; 80053; 80305; 80320; 81001; 84443; 84484; 85025; 85610; 85730; 93005; 96365; 96366; 96375; 99285; J2060; J3490

== ENCOUNTER 2018-05-08 06:05 | Inpatient (IN) | payer MEDICARE, MEDICAID ==
[~2018-05-08] VITALS: Ht 160 cm; Wt 60.0 kg
[2018-05-08 07:21] LABS: BASOPHILS % (AUTO) 0.3 % (0-1); EOSINOPHILS % (AUTO) 0 % (0-6); HEMATOCRIT 37.4 % (35.0-45.0); HEMOGLOBIN 12.3 g/dl (12.0-16.0); LYMPHOCYTES # (AUTO) 0.7 X10'3 (1.1-4.8); LYMPHOCYTES % (AUTO) 9.7 % (21-51); MEAN CORPUSCULAR HEMOGLOBIN 28.9 PG (27.0-31.0); MEAN CORPUSCULAR VOLUME 87.6 FL (78-98); MEAN PLATELET VOLUME 7.7 FL (7.4-10.4); MONOCYTES # (AUTO) 0.6 X10'3 (0-0.9); MONOCYTES % (AUTO) 7.6 % (2-12); NEUTROPHILS # (AUTO) 6.3 X10'3 (1.8-7.7); NEUTROPHILS % (AUTO) 82.4 % (42-75); PLATELET COUNT 297 X10'3 (140-440); RED BLOOD COUNT 4.27 X10'6 (4.20-5.60); RED CELL DISTRIBUTION WIDTH 20.3 % (11.5-14.5); WHITE BLOOD COUNT 7.7 X10'3 (4.5-11.0)
[2018-05-08 07:35] LABS: ALANINE AMINOTRANSFERASE 80 U/L (12-78); ALBUMIN 3.2 G/DL (3.4-5.0); ALBUMIN/GLOBULIN RATIO 0.6 (1.1-1.5); ALKALINE PHOSPHATASE 209 IU/L (46-116); ANION GAP 10 (8-16); ASPARTATE AMINO TRANSFERASE 150 U/L (10-37); BILIRUBIN,TOTAL 0.9 MG/DL (0.1-1.0); BLOOD UREA NITROGEN 10 MG/DL (7-18); BUN/CREATININE RATIO 13.5 (6.6-38.0); CALCIUM 8.4 MG/DL (8.5-10.1); CHLORIDE 98 MMOL/L (99-107); CREATININE 0.74 MG/DL (0.40-0.90); GLUCOSE 130 MG/DL (70-104); POTASSIUM 3.4 MMOL/L (3.5-5.1); SODIUM 137 MMOL/L (135-145); TOTAL CARBON DIOXIDE 28.9 MMOL/L (24-32); TOTAL PROTEIN 8.3 G/DL (6.4-8.2); eGFR 78 ML/MIN
[2018-05-08 07:42] LABS: ANISOCYTOSIS 2+; PLATELET ESTIMATE NORMAL
[2018-05-08 08:22] LABS: MAGNESIUM 1.7 MG/DL (1.5-2.4)
[2018-05-08] MEDS ORDERED: acetaminophen 325mg tablet PO ONE (08:25)
[2018-05-08] MEDS ORDERED: LORazepam 2 mg/ml vial IV ONE (08:25)
[2018-05-08] MEDS ORDERED: nitroGLYCERIN 0.4mg SUBLingual tab SL PRN (08:25)
[2018-05-08] MEDS ORDERED: furosemide 10 MG/1 ML 10ml inj IV ONE (09:15)
[2018-05-08] MEDS ORDERED: CEPH250C PO (09:46)
[2018-05-08] MEDS ORDERED: SERT50TA10 PO (09:48)
[2018-05-08] MEDS ORDERED: LEVO50TA8 PO (09:48)
[2018-05-08] MEDS ORDERED: CLON-528 PO (09:50)
[2018-05-08] MEDS ORDERED: morphine 2 MG/ML inj. syringe IV ONE (09:50)
[2018-05-08] MEDS ORDERED: ATOR40TA72 PO (09:51)
[2018-05-08] MEDS ORDERED: potassium Cl 20 mEq SR tablet PO PRN ×2 (10:10)
[2018-05-08] MEDS ORDERED: morphine 2 MG/ML inj. syringe IV PRN (10:10)
[2018-05-08] MEDS ORDERED: dextrose 50%-water 50ml dispensing syringe IV PRN (10:10)
[2018-05-08] MEDS ORDERED: magnesium hydroxide 30ml (MOM) UD suspension PO PRN (10:10)
[2018-05-08] MEDS ORDERED: haloperidol 5mg tablet PO PRN (10:10)
[2018-05-08] MEDS ORDERED: haloperidol lactate 5mg/ml inj IM PRN (10:10)
[2018-05-08] MEDS ORDERED: mag hydrox/Alum hydrox/simeth 30ml oral suspension PO PRN (10:10)
[2018-05-08] MEDS ORDERED: ondansetron/PF 4mg/2ml inj IV PRN (10:10)
[2018-05-08] MEDS ORDERED: potassium Cl 40MEQ/NS 500ml 500 ML IV PRN ×2 (10:10)
[2018-05-08] MEDS ORDERED: thiamine 100mg/ml 2ml inj. IV ONE (10:10)
[2018-05-08] MEDS ORDERED: acetaminophen 325mg tablet PO PRN ×2 (10:10)
[2018-05-08 13:15] VITALS: BP 155/112
[2018-05-08] MEDS: clonazePAM 0.5mg tablet PO SCH ×2 (13:15→20:51)
[2018-05-08] MEDS: atenolol 25mg tablet PO SCH (13:15)
[2018-05-08] MEDS: gabapentin 300mg capsule PO SCH ×2 (13:15→20:50)
[2018-05-08] MEDS: morphine 2 MG/ML inj. syringe IV PRN (13:54)
[2018-05-08] MEDS: cephalexin 250mg capsule PO SCH ×3 (15:12→20:50)
[2018-05-08 15:22] VITALS: BP 157/95
[2018-05-08] MEDS: HYDROcodone/acetaminophen 10/325mg tab PO PRN ×2 (17:27→23:30)
[2018-05-08 20:00] VITALS: BP 137/78
[2018-05-09] VITALS: BP 164/104
[2018-05-09] MEDS: HYDROcodone/acetaminophen 5mg/325mg tablet PO PRN ×2 (05:36→17:13)
[2018-05-09 06:36] LABS: BASOPHILS % (AUTO) 0.1 % (0-1); EOSINOPHILS % (AUTO) 0.6 % (0-6); HEMATOCRIT 38.4 % (35.0-45.0); HEMOGLOBIN 12.5 g/dl (12.0-16.0); LYMPHOCYTES # (AUTO) 0.9 X10'3 (1.1-4.8); LYMPHOCYTES % (AUTO) 14.8 % (21-51); MEAN CORPUSCULAR HEMOGLOBIN 28.6 PG (27.0-31.0); MEAN CORPUSCULAR HGB CONC 32.5 % (33.0-36.5); MEAN CORPUSCULAR VOLUME 88.2 FL (78-98); MEAN PLATELET VOLUME 7.9 FL (7.4-10.4); MONOCYTES # (AUTO) 0.4 X10'3 (0-0.9); MONOCYTES % (AUTO) 6.9 % (2-12); NEUTROPHILS # (AUTO) 4.9 X10'3 (1.8-7.7); NEUTROPHILS % (AUTO) 77.6 % (42-75); PLATELET COUNT 255 X10'3 (140-440); RED BLOOD COUNT 4.36 X10'6 (4.20-5.60); RED CELL DISTRIBUTION WIDTH 19.8 % (11.5-14.5); WHITE BLOOD COUNT 6.3 X10'3 (4.5-11.0)
[2018-05-09 06:49] LABS: ALBUMIN 2.6 G/DL (3.4-5.0); ANION GAP 5 (8-16); BLOOD UREA NITROGEN 18 MG/DL (7-18); CALCIUM 8.4 MG/DL (8.5-10.1); CHLORIDE 99 MMOL/L (99-107); GLUCOSE 100 MG/DL (70-104); MAGNESIUM 1.4 MG/DL (1.5-2.4); POTASSIUM 4.3 MMOL/L (3.5-5.1); SODIUM 136 MMOL/L (135-145); TOTAL CARBON DIOXIDE 32.4 MMOL/L (24-32); eGFR 55 ML/MIN
[2018-05-09 06:55] LABS: ANISOCYTOSIS 2+; PLATELET ESTIMATE NORMAL; TARGET CELLS FEW
[2018-05-09 06:56] LABS: SPHEROCYTES FEW
[2018-05-09 07:55] VITALS: BP 149/95
[2018-05-09] MEDS: K and/or MAG REPLACEMENT MC SCH (08:00)
[2018-05-09] MEDS ORDERED: enoxaparin 40mg/0.4ml syringe SQ SCH (08:00)
[2018-05-09] MEDS ORDERED: aminophylline 250mg/10ml inj. IV PRN (08:15)
[2018-05-09] MEDS ORDERED: nitroGLYCERIN 0.4mg SUBLingual tab SL PRN (08:15)
[2018-05-09] MEDS ORDERED: metoprolol tartrate 1mg/ml inj IV PRN (08:15)
[2018-05-09] MEDS ORDERED: regadenoson 0.4mg/5ml syringe IV PRN (08:15)
[2018-05-09] MEDS: gabapentin 300mg capsule PO SCH ×3 (08:18→20:54)
[2018-05-09] MEDS: levoTHYROXINE 25mcg tablet PO SCH (08:18)
[2018-05-09] MEDS: sertraline 50mg tablet PO SCH (08:18)
[2018-05-09] MEDS: pantoprazole 40mg Tablet.DR PO SCH (08:18)
[2018-05-09] MEDS: cephalexin 250mg capsule PO SCH ×4 (08:18→20:54)
[2018-05-09] MEDS: aspirin 325mg tablet, delayed-release (Ecotrin) PO SCH (08:19)
[2018-05-09] MEDS: clonazePAM 0.5mg tablet PO SCH ×3 (08:19→20:54)
[2018-05-09] MEDS: atenolol 25mg tablet PO SCH (08:19)
[2018-05-09] MEDS: atorvastatin 20mg tablet PO SCH (08:19)
[2018-05-09] MEDS: furosemide 20MG tablet PO SCH (08:19)
[2018-05-09] MEDS: lisinopril 10 MG tablet PO SCH (08:20)
[2018-05-09] MEDS: HYDROcodone/acetaminophen 10/325mg tab PO PRN ×2 (10:00→21:19)
[2018-05-09 11:42] VITALS: BP 159/93
[2018-05-09] MEDS: LORazepam 2 mg/ml vial IV PRN (13:04)
[2018-05-09] MEDS: morphine 2 MG/ML inj. syringe IV PRN (13:05)
[2018-05-09] MEDS: folic acid 1mg tablet PO SCH (14:42)
[2018-05-09] MEDS: enoxaparin 40mg/0.4ml syringe SUBCUT SCH (14:42)
[2018-05-09 20:00] VITALS: BP 143/87
[2018-05-09] MEDS: thiamine 100mg tablet PO SCH (20:53)
[2018-05-09] MEDS: lactobacillus rhamnosus 10,000 MMU CELLS/CAPSULE PO SCH (20:53)
[2018-05-10] VITALS (10 sets, daily range): BP systolic 140–175; BP diastolic 84–101
[2018-05-10] MEDS: LORazepam 2 mg/ml vial IV PRN (05:24)
[2018-05-10 06:17] LABS: ALANINE AMINOTRANSFERASE 52 U/L (12-78); ALBUMIN 2.6 G/DL (3.4-5.0); ALBUMIN/GLOBULIN RATIO 0.6 (1.1-1.5); ALKALINE PHOSPHATASE 164 IU/L (46-116); ANION GAP 6 (8-16); ASPARTATE AMINO TRANSFERASE 61 U/L (10-37); BILIRUBIN,TOTAL 0.5 MG/DL (0.1-1.0); BLOOD UREA NITROGEN 26 MG/DL (7-18); BUN/CREATININE RATIO 24.8 (6.6-38.0); CALCIUM 8.6 MG/DL (8.5-10.1); CHLORIDE 100 MMOL/L (99-107); CHOL/HDL RATIO 2.3 (0.00-4.99); CHOLESTEROL 115 MG/DL (0-200); CREATININE 1.05 MG/DL (0.40-0.90); HDL CHOLESTEROL 51 MG/DL (35-60); LDL CHOLESTEROL 46 MG/DL (50-100); MAGNESIUM 1.5 MG/DL (1.5-2.4); SODIUM 139 MMOL/L (135-145); TOTAL CARBON DIOXIDE 32.8 MMOL/L (24-32); TRIGLYCERIDES 96 MG/DL (20-135); eGFR 52 ML/MIN
[2018-05-10 06:30] LABS: GLUCOSE 105 MG/DL (70-104)
[2018-05-10] MEDS: enoxaparin 40mg/0.4ml syringe SUBCUT SCH (07:00)
[2018-05-10] MEDS: pantoprazole 40mg Tablet.DR PO SCH (07:32)
[2018-05-10] MEDS: cephalexin 250mg capsule PO SCH ×2 (07:33→12:06)
[2018-05-10] MEDS: sertraline 50mg tablet PO SCH (07:33)
[2018-05-10] MEDS: clonazePAM 0.5mg tablet PO SCH ×2 (07:33→12:06)
[2018-05-10] MEDS: atorvastatin 20mg tablet PO SCH (07:33)
[2018-05-10] MEDS: folic acid 1mg tablet PO SCH (07:33)
[2018-05-10] MEDS: thiamine 100mg tablet PO SCH (07:33)
[2018-05-10] MEDS: gabapentin 300mg capsule PO SCH ×2 (07:33→12:06)
[2018-05-10] MEDS: lactobacillus rhamnosus 10,000 MMU CELLS/CAPSULE PO SCH (07:33)
[2018-05-10] MEDS: levoTHYROXINE 25mcg tablet PO SCH (07:33)
[2018-05-10] MEDS: K and/or MAG REPLACEMENT MC SCH (07:36)
[2018-05-10] MEDS: aspirin 325mg tablet, delayed-release (Ecotrin) PO SCH (07:37)
[2018-05-10] MEDS: atenolol 25mg tablet PO SCH (07:37)
[2018-05-10] MEDS: furosemide 20MG tablet PO SCH (07:37)
[2018-05-10] MEDS: lisinopril 10 MG tablet PO SCH (07:37)
[2018-05-10] MEDS: HYDROcodone/acetaminophen 5mg/325mg tablet PO PRN (08:26)
[2018-05-10] MEDS ORDERED: regadenoson 0.4mg/5ml syringe IV PRN (08:40)
[2018-05-10] MEDS ORDERED: aminophylline 250mg/10ml inj. IV PRN (08:40)
[2018-05-10] MEDS ORDERED: regadenoson 0.4mg/5ml syringe IV ONE (09:16)
[2018-05-10] MEDS ORDERED: LORazepam 2 mg/ml vial IV PRN (10:10)
[2018-05-10] MEDS ORDERED: LORazepam 1 MG tablet PO PRN (10:10)
[2018-05-10] MEDS ORDERED: THI100T PO (11:28)
[2018-05-10] MEDS ORDERED: FOLI1TAB16 PO (11:28)
[2018-05-10] MEDS ORDERED: PANT40TA4 PO (11:28)
[2018-05-12] MEDS ORDERED: LORazepam 1 MG tablet PO PRN (10:10)
[2018-05-12] MEDS ORDERED: LORazepam 2 mg/ml vial IV PRN (10:10)
== END 2018-05-10 15:30 | disposition home or self-care (01) | DRG 392 ==
LOC: ER 06:06 → ED HOLD 10:06 → EDBEDREQ 12:31 → SUR 3N 12:56
PROVIDERS: ADMIT Hospitalist; ATTEND Internal Medicine
PROC: 3E02340 Introduction of Influenza Vaccine into Muscle, Percutaneous Approach (ICD-10-PCS; principal; 2018-05-08)
PROC: 4A02XM4 Measurement of Cardiac Total Activity, External Approach (ICD-10-PCS; 2018-05-10)
PROC: 3E033HZ Introduction of Radioactive Substance into Peripheral Vein, Percutaneous Approach (ICD-10-PCS; 2018-05-10)
DX: K29.20 Alcoholic gastritis without bleeding (principal); I50.22 Chronic systolic (congestive) heart failure; F10.239 Alcohol dependence with withdrawal, unspecified; I42.6 Alcoholic cardiomyopathy; E03.9 Hypothyroidism, unspecified; E78.00 Pure hypercholesterolemia, unspecified; F17.210 Nicotine dependence, cigarettes, uncomplicated; I11.0 Hypertensive heart disease with heart failure; I48.91 Unspecified atrial fibrillation; B19.20 Unspecified viral hepatitis C without hepatic coma; F11.10 Opioid abuse, uncomplicated; F12.90 Cannabis use, unspecified, uncomplicated; F15.90 Other stimulant use, unspecified, uncomplicated; F32.9 Major depressive disorder, single episode, unspecified; F41.9 Anxiety disorder, unspecified; G43.909 Migraine, unspecified, not intractable, without status migrainosus; I44.7 Left bundle-branch block, unspecified; M19.90 Unspecified osteoarthritis, unspecified site; R74.8 Abnormal levels of other serum enzymes; J44.9 Chronic obstructive pulmonary disease, unspecified; K21.9 Gastro-esophageal reflux disease without esophagitis; Z59.0 Homelessness; Z23 Encounter for immunization; Z90.49 Acquired absence of other specified parts of digestive tract; Z88.8 Allergy status to other drugs, medicaments and biological substances; Z79.899 Other long term (current) drug therapy; Z86.73 Personal history of transient ischemic attack (TIA), and cerebral infarction without residual deficits; Z86.14 Personal history of Methicillin resistant Staphylococcus aureus infection; Z82.49 Family history of ischemic heart disease and other diseases of the circulatory system; Z83.3 Family history of diabetes mellitus; Z71.41 Alcohol abuse counseling and surveillance of alcoholic; Z71.51 Drug abuse counseling and surveillance of drug abuser
CPT/HCPCS: 36415; 71045; 78452; 80048; 80053; 80061; 83735; 83880; 84484; 85025; 87070; 93005; 93017; 96374; 96375; 99285; A9500; G0378; J1650; J1940; J2060; J2270; J2405; J3411

== ENCOUNTER 2018-05-15 06:51 | Emergency (ER) | payer MEDICARE, MEDICAID ==
[~2018-05-15] VITALS: Ht 160 cm; Wt 56.0 kg
[~2018-05-15 06:51] MED LIST changes: -ALBU6.7H INH; -AMIO200T40 PO; -APIX5TAB3 PO; -ATOR20TA66 PO; +ATOR40TA72 PO; -CEPH-571 PO; +CEPH250C PO; -CITA-278 PO; +CLON-528 PO; -CLON0.5T12 PO; -CYCL-1 PO; +FOLI1TAB16 PO; -FURO20TA4 PO; -HYDR-4383 PO; -LACT1CAP26 PO; +LEVO50TA8 PO; -LEVO75TA7 PO; -LIDO700A32 PO; -MELO-100 PO; -OMEP20CA10 PO; +PANT40TA4 PO; +SERT50TA10 PO; -SULF1TAB48 PO; +THI100T PO
[2018-05-15] MEDS ORDERED: ketorolac trometh inj. 60 MG/2 ML VIAL IM ONE (07:15)
[2018-05-15] MEDS ORDERED: ipratropium/albuterol 3ml nebule NEB ONE (07:20)
[2018-05-15] MEDS ORDERED: albuterol 2.5 MG/3 ML nebule NEB ONE (07:20)
[2018-05-15] MEDS ORDERED: albuterol 2.5 MG/3 ML nebule ONE (07:26)
[2018-05-15] MEDS ORDERED: LORazepam 1 MG tablet PO ONE (08:40)
[2018-05-15 09:09] VITALS: BP 181/98
== END 2018-05-15 09:12 | disposition home or self-care (01) ==
LOC: ER 06:52
DX: J44.9 Chronic obstructive pulmonary disease, unspecified (principal); G89.29 Other chronic pain; M25.552 Pain in left hip; M25.551 Pain in right hip; M79.605 Pain in left leg; M79.604 Pain in right leg; I48.91 Unspecified atrial fibrillation; I11.0 Hypertensive heart disease with heart failure; I50.9 Heart failure, unspecified; E78.00 Pure hypercholesterolemia, unspecified; K21.9 Gastro-esophageal reflux disease without esophagitis; E03.9 Hypothyroidism, unspecified; M19.90 Unspecified osteoarthritis, unspecified site; Z86.14 Personal history of Methicillin resistant Staphylococcus aureus infection; F12.90 Cannabis use, unspecified, uncomplicated; F15.90 Other stimulant use, unspecified, uncomplicated; F11.90 Opioid use, unspecified, uncomplicated; Z88.8 Allergy status to other drugs, medicaments and biological substances; Z79.2 Long term (current) use of antibiotics; Z79.899 Other long term (current) drug therapy; Z59.0 Homelessness
CPT/HCPCS: 93005; 94640; 94760; 96372; 99284; J1885

== ENCOUNTER 2018-05-27 11:46 | Emergency (ER) | payer MEDICARE, MEDICAID ==
[~2018-05-27] VITALS: Ht 160 cm; Wt 54.1 kg
[2018-05-27] MEDS ORDERED: HYDROcodone/acetaminophen 5mg/325mg tablet PO ONE (13:05)
[2018-05-27] MEDS ORDERED: ketorolac trometh inj. 60 MG/2 ML VIAL IM ONE (13:05)
[2018-05-27] MEDS ORDERED: NAPR-996 PO (13:06)
[2018-05-27] MEDS ORDERED: PRED20TA PO (13:17)
[2018-05-27 14:15] VITALS: BP 139/92
== END 2018-05-27 14:16 | disposition home or self-care (01) ==
LOC: ER 11:47
DX: M70.72 Other bursitis of hip, left hip (principal); M19.90 Unspecified osteoarthritis, unspecified site; J44.9 Chronic obstructive pulmonary disease, unspecified; I48.91 Unspecified atrial fibrillation; I11.0 Hypertensive heart disease with heart failure; I50.9 Heart failure, unspecified; E78.00 Pure hypercholesterolemia, unspecified; K21.9 Gastro-esophageal reflux disease without esophagitis; E03.9 Hypothyroidism, unspecified; F10.10 Alcohol abuse, uncomplicated; F12.90 Cannabis use, unspecified, uncomplicated; F15.90 Other stimulant use, unspecified, uncomplicated; F11.90 Opioid use, unspecified, uncomplicated; Z90.49 Acquired absence of other specified parts of digestive tract; Z59.0 Homelessness; Z86.73 Personal history of transient ischemic attack (TIA), and cerebral infarction without residual deficits; Z88.8 Allergy status to other drugs, medicaments and biological substances; Y93.89 Activity, other specified
CPT/HCPCS: 73502; 96372; 99284; J1885

== ENCOUNTER → 2018-06-15 | Emergency (ER) | payer MEDICARE, MEDICAID ==
[~2018-06-15] VITALS: Ht 160 cm; Wt 56.0 kg
[~2018-06-15] MED LIST changes: +ALBU6.7H INH; +LORazepam 1 MG tablet PO ONE; +NAPR-996 PO; +albuterol 2.5 MG/3 ML nebule NEB ONE; +furosemide 20MG tablet PO ONE
[2018-06-15 01:13] LABS: BASOPHILS % (AUTO) 0.5 % (0-1); EOSINOPHILS # (AUTO) 0.1 X10'3 (0-0.9); EOSINOPHILS % (AUTO) 1.5 % (0-6); HEMATOCRIT 32.3 % (35.0-45.0); HEMOGLOBIN 10.6 g/dl (12.0-16.0); LYMPHOCYTES # (AUTO) 1.3 X10'3 (1.1-4.8); MEAN CORPUSCULAR HEMOGLOBIN 29.5 PG (27.0-31.0); MEAN CORPUSCULAR VOLUME 89.7 FL (78-98); MEAN PLATELET VOLUME 9.3 FL (7.4-10.4); MONOCYTES # (AUTO) 0.5 X10'3 (0-0.9); NEUTROPHILS # (AUTO) 3.6 X10'3 (1.8-7.7); PLATELET COUNT 208 X10'3 (140-440); RED CELL DISTRIBUTION WIDTH 15.2 % (11.5-14.5); WHITE BLOOD COUNT 5.5 X10'3 (4.5-11.0)
[2018-06-15 01:26] LABS: ALANINE AMINOTRANSFERASE 54 U/L (12-78); ALBUMIN 2.9 G/DL (3.4-5.0); ALBUMIN/GLOBULIN RATIO 0.7 (1.1-1.5); ALKALINE PHOSPHATASE 167 IU/L (46-116); ANION GAP 8 (8-16); ASPARTATE AMINO TRANSFERASE 74 U/L (10-37); BILIRUBIN,TOTAL 0.3 MG/DL (0.1-1.0); BLOOD UREA NITROGEN 22 MG/DL (7-18); BUN/CREATININE RATIO 27.8 (6.6-38.0); CALCIUM 8.4 MG/DL (8.5-10.1); CHLORIDE 96 MMOL/L (99-107); CREATININE 0.79 MG/DL (0.40-0.90); POTASSIUM 4.6 MMOL/L (3.5-5.1); SODIUM 128 MMOL/L (135-145); TOTAL CARBON DIOXIDE 23.6 MMOL/L (24-32); TOTAL PROTEIN 7.3 G/DL (6.4-8.2); eGFR 72 ML/MIN
[2018-06-15 01:29] LABS: PARTIAL THROMBOPLASTIN TIME 29 SECONDS (22-32); PROTHROMBIN TIME 10.6 SECONDS (9.0-12.0)
[2018-06-15 01:32] LABS: GLUCOSE 118 MG/DL (70-104)
[2018-06-15 01:54] VITALS: BP 136/94
== END | disposition home or self-care (01) ==
LOC: ER 00:15
DX: J44.1 Chronic obstructive pulmonary disease with (acute) exacerbation (principal); I11.0 Hypertensive heart disease with heart failure; I50.22 Chronic systolic (congestive) heart failure; I48.91 Unspecified atrial fibrillation; E78.00 Pure hypercholesterolemia, unspecified; K21.9 Gastro-esophageal reflux disease without esophagitis; E03.9 Hypothyroidism, unspecified; M19.90 Unspecified osteoarthritis, unspecified site; F12.90 Cannabis use, unspecified, uncomplicated; F15.90 Other stimulant use, unspecified, uncomplicated; F11.90 Opioid use, unspecified, uncomplicated; F17.210 Nicotine dependence, cigarettes, uncomplicated; Z86.73 Personal history of transient ischemic attack (TIA), and cerebral infarction without residual deficits; Z90.49 Acquired absence of other specified parts of digestive tract; Z98.890 Other specified postprocedural states; Z88.8 Allergy status to other drugs, medicaments and biological substances; Z79.2 Long term (current) use of antibiotics; Z79.899 Other long term (current) drug therapy
CPT/HCPCS: 36415; 71045; 80053; 83880; 84484; 85025; 85610; 85730; 93005; 94640; 94760; 99284

== ENCOUNTER 2018-06-17 12:32 | Emergency (ER) | payer MEDICARE, MEDICAID ==
[~2018-06-17] VITALS: Ht 160 cm; Wt 56.8 kg
[~2018-06-17 12:32] MED LIST changes: -ALBU6.7H INH; -LORazepam 1 MG tablet PO ONE; -albuterol 2.5 MG/3 ML nebule NEB ONE; -furosemide 20MG tablet PO ONE
[2018-06-17 12:41] VITALS: BP 165/82
[2018-06-17] MEDS ORDERED: ALBU6.7H INH (12:47)
== END 2018-06-17 13:21 | disposition home or self-care (01) ==
LOC: ER 12:33
DX: J44.1 Chronic obstructive pulmonary disease with (acute) exacerbation (principal); R05 Cough; I48.91 Unspecified atrial fibrillation; I11.0 Hypertensive heart disease with heart failure; I50.9 Heart failure, unspecified; E78.00 Pure hypercholesterolemia, unspecified; K21.9 Gastro-esophageal reflux disease without esophagitis; E03.9 Hypothyroidism, unspecified; M19.90 Unspecified osteoarthritis, unspecified site; F12.90 Cannabis use, unspecified, uncomplicated; F15.90 Other stimulant use, unspecified, uncomplicated; F11.90 Opioid use, unspecified, uncomplicated; F17.200 Nicotine dependence, unspecified, uncomplicated; Z59.0 Homelessness; Z91.14 Patient's other noncompliance with medication regimen; Z90.49 Acquired absence of other specified parts of digestive tract; Z98.890 Other specified postprocedural states; Z86.73 Personal history of transient ischemic attack (TIA), and cerebral infarction without residual deficits; Z88.8 Allergy status to other drugs, medicaments and biological substances; Z79.899 Other long term (current) drug therapy
CPT/HCPCS: 99283

== ENCOUNTER 2018-06-25 20:55 | Emergency (ER) | payer MEDICARE, MEDICAID ==
[~2018-06-25] VITALS: Ht 160 cm; Wt 60.0 kg
[~2018-06-25 20:55] MED LIST changes: +ALBU6.7H INH
[2018-06-25] MEDS ORDERED: aspirin 81mg tab.chew PO ONE (21:10)
[2018-06-25 21:41] LABS: HEMATOCRIT 32.9 % (35.0-45.0); HEMOGLOBIN 11.1 g/dl (12.0-16.0); MEAN CORPUSCULAR HEMOGLOBIN 29.8 PG (27.0-31.0); MEAN CORPUSCULAR HGB CONC 33.8 % (33.0-36.5); MEAN CORPUSCULAR VOLUME 87.9 FL (78-98); MEAN PLATELET VOLUME 9.3 FL (7.4-10.4); PLATELET COUNT 150 X10'3 (140-440); RED BLOOD COUNT 3.74 X10'6 (4.20-5.60); RED CELL DISTRIBUTION WIDTH 14.9 % (11.5-14.5); WHITE BLOOD COUNT 5.4 X10'3 (4.5-11.0)
[2018-06-25 21:42] LABS: BASOPHILS % (AUTO) 0.6 % (0-1); EOSINOPHILS % (AUTO) 0.7 % (0-6); LYMPHOCYTES # (AUTO) 1.2 X10'3 (1.1-4.8); LYMPHOCYTES % (AUTO) 21.3 % (21-51); MONOCYTES # (AUTO) 0.5 X10'3 (0-0.9); MONOCYTES % (AUTO) 8.5 % (2-12); NEUTROPHILS # (AUTO) 3.7 X10'3 (1.8-7.7); NEUTROPHILS % (AUTO) 68.9 % (42-75)
[2018-06-25 21:49] LABS: ALANINE AMINOTRANSFERASE 69 U/L (12-78); ALBUMIN 3.1 G/DL (3.4-5.0); ALBUMIN/GLOBULIN RATIO 0.7 (1.1-1.5); ALKALINE PHOSPHATASE 174 IU/L (46-116); ANION GAP 9 (8-16); ASPARTATE AMINO TRANSFERASE 82 U/L (10-37); BILIRUBIN,TOTAL 0.3 MG/DL (0.1-1.0); BLOOD UREA NITROGEN 19 MG/DL (7-18); BUN/CREATININE RATIO 20.9 (6.6-38.0); CALCIUM 8.6 MG/DL (8.5-10.1); CHLORIDE 97 MMOL/L (99-107); CREATININE 0.91 MG/DL (0.40-0.90); POTASSIUM 4.7 MMOL/L (3.5-5.1); SODIUM 134 MMOL/L (135-145); TOTAL CARBON DIOXIDE 28.1 MMOL/L (24-32); TOTAL PROTEIN 7.5 G/DL (6.4-8.2); eGFR 61 ML/MIN
[2018-06-25 21:51] LABS: GLUCOSE 139 MG/DL (70-104); PROTHROMBIN TIME 10.6 SECONDS (9.0-12.0)
[2018-06-25 21:52] LABS: PARTIAL THROMBOPLASTIN TIME 28 SECONDS (22-32)
[2018-06-25 21:58] LABS: LIPASE 652 U/L (73-393); MAGNESIUM 1.6 MG/DL (1.5-2.4)
[2018-06-25 22:03] LABS: URINE AMPHETAMINE SCREEN NEGATIVE (Neg); URINE BARBITUATE SCREEN NEGATIVE (Neg); URINE BENZODIAZEPINES SCREEN NEGATIVE (Neg); URINE CANNABINOID SCREEN POSITIVE (Neg); URINE COCAINE SCREEN NEGATIVE (Neg); URINE METHADONE SCREEN NEGATIVE (Neg); URINE OPIATE SCREEN POSITIVE (Neg); URINE PHENCYCLIDINE SCREEN NEGATIVE (Neg)
[2018-06-25] MEDS ORDERED: FURO-149 PO (22:19)
[2018-06-25] MEDS ORDERED: PRED20TA PO (22:19)
[2018-06-25 22:30] VITALS: BP 158/96
== END 2018-06-25 22:36 | disposition home or self-care (01) ==
LOC: ER 20:55
DX: R07.89 Other chest pain (principal); R05 Cough; I44.7 Left bundle-branch block, unspecified; R60.0 Localized edema; I48.91 Unspecified atrial fibrillation; I11.0 Hypertensive heart disease with heart failure; I50.9 Heart failure, unspecified; E78.00 Pure hypercholesterolemia, unspecified; J44.9 Chronic obstructive pulmonary disease, unspecified; K21.9 Gastro-esophageal reflux disease without esophagitis; E03.9 Hypothyroidism, unspecified; M19.90 Unspecified osteoarthritis, unspecified site; F12.90 Cannabis use, unspecified, uncomplicated; F15.90 Other stimulant use, unspecified, uncomplicated; F11.90 Opioid use, unspecified, uncomplicated; I25.10 Atherosclerotic heart disease of native coronary artery without angina pectoris; Z90.49 Acquired absence of other specified parts of digestive tract; Z98.890 Other specified postprocedural states; Z59.0 Homelessness; Z86.73 Personal history of transient ischemic attack (TIA), and cerebral infarction without residual deficits; Z88.8 Allergy status to other drugs, medicaments and biological substances; Z79.899 Other long term (current) drug therapy; Z87.891 Personal history of nicotine dependence
CPT/HCPCS: 36415; 71045; 80053; 80305; 83690; 83735; 83880; 84484; 85025; 85610; 85730; 93005; 99284

== ENCOUNTER 2018-07-10 11:38 | Emergency (ER) | payer MEDICARE, MEDICAID ==
[~2018-07-10 11:38] MED LIST changes: +FURO-149 PO; +PRED20TA PO
[2018-07-10] MEDS ORDERED: CEPH500C5 PO (20:53)
[2018-07-10] MEDS ORDERED: ACET-3068 PO (20:53)
[2018-07-10] MEDS ORDERED: SULF1TAB49 PO (20:53)
== END 2018-07-10 12:40 | disposition left against medical advice (07) ==
LOC: ER 11:39
DX: L03.818 Cellulitis of other sites (principal); Z53.21 Procedure and treatment not carried out due to patient leaving prior to being seen by health care provider

== ENCOUNTER 2018-07-10 14:20 | Emergency (ER) | payer MEDICARE, MEDICAID ==
[~2018-07-10] VITALS: Ht 160 cm; Wt 62.5 kg
[2018-07-10 18:38] LABS: BASOPHILS % (AUTO) 0.1 % (0-1); EOSINOPHILS # (AUTO) 0.1 X10'3 (0-0.9); EOSINOPHILS % (AUTO) 0.6 % (0-6); HEMATOCRIT 32.9 % (35.0-45.0); HEMOGLOBIN 10.4 g/dl (12.0-16.0); LYMPHOCYTES # (AUTO) 0.5 X10'3 (1.1-4.8); LYMPHOCYTES % (AUTO) 5.2 % (21-51); MEAN CORPUSCULAR HEMOGLOBIN 27.8 PG (27.0-31.0); MEAN CORPUSCULAR HGB CONC 31.7 % (33.0-36.5); MEAN CORPUSCULAR VOLUME 87.6 FL (78-98); MEAN PLATELET VOLUME 8.1 FL (7.4-10.4); MONOCYTES # (AUTO) 0.7 X10'3 (0-0.9); MONOCYTES % (AUTO) 6.7 % (2-12); NEUTROPHILS # (AUTO) 9.3 X10'3 (1.8-7.7); NEUTROPHILS % (AUTO) 87.4 % (42-75); PLATELET COUNT 223 X10'3 (140-440); RED BLOOD COUNT 3.76 X10'6 (4.20-5.60); RED CELL DISTRIBUTION WIDTH 16.1 % (11.5-14.5); WHITE BLOOD COUNT 10.7 X10'3 (4.5-11.0)
[2018-07-10 18:55] LABS: ALANINE AMINOTRANSFERASE 42 U/L (12-78); ALBUMIN 2.8 G/DL (3.4-5.0); ALBUMIN/GLOBULIN RATIO 0.6 (1.1-1.5); ALKALINE PHOSPHATASE 144 IU/L (46-116); ANION GAP 11 (8-16); ASPARTATE AMINO TRANSFERASE 57 U/L (10-37); BILIRUBIN,TOTAL 0.4 MG/DL (0.1-1.0); BLOOD UREA NITROGEN 17 MG/DL (7-18); BUN/CREATININE RATIO 19.1 (6.6-38.0); CALCIUM 8.4 MG/DL (8.5-10.1); CHLORIDE 101 MMOL/L (99-107); CREATININE 0.89 MG/DL (0.40-0.90); GLUCOSE 87 MG/DL (70-104); POTASSIUM 4.3 MMOL/L (3.5-5.1); SODIUM 136 MMOL/L (135-145); TOTAL CARBON DIOXIDE 24.2 MMOL/L (24-32); TOTAL PROTEIN 7.7 G/DL (6.4-8.2); eGFR 63 ML/MIN
--- NOTE | 2018-07-10 19:00 | NUR ---
Patient is resting comfortably on gurney, she is A&O x4, CARNES. I will continue to monitor.
[2018-07-10] MEDS ORDERED: CEPH500C5 PO (20:53)
[2018-07-10] MEDS ORDERED: ACET-3068 PO (20:53)
[2018-07-10] MEDS ORDERED: SULF1TAB49 PO (20:53)
[2018-07-10] MEDS ORDERED: HYDROcodone/acetaminophen 5mg/325mg tablet PO ONE (20:55)
[2018-07-10] MEDS ORDERED: ketorolac tromethamine 15mg/ml inj. IM ONE (20:55)
--- NOTE | 2018-07-10 20:55 | NUR ---
Patient with MD, just brought her a sandwich and crackers. She reports a headache of 7/10, MD is aware
[2018-07-10 21:25] VITALS: BP 161/88
== END 2018-07-10 21:31 | disposition home or self-care (01) ==
LOC: ER 14:22
DX: L03.116 Cellulitis of left lower limb (principal); I48.91 Unspecified atrial fibrillation; I50.9 Heart failure, unspecified; E78.00 Pure hypercholesterolemia, unspecified; I11.0 Hypertensive heart disease with heart failure; J44.9 Chronic obstructive pulmonary disease, unspecified; K21.9 Gastro-esophageal reflux disease without esophagitis; E03.9 Hypothyroidism, unspecified; M19.90 Unspecified osteoarthritis, unspecified site; F12.90 Cannabis use, unspecified, uncomplicated; F15.90 Other stimulant use, unspecified, uncomplicated; F11.90 Opioid use, unspecified, uncomplicated; F17.200 Nicotine dependence, unspecified, uncomplicated; Z86.73 Personal history of transient ischemic attack (TIA), and cerebral infarction without residual deficits; Z86.19 Personal history of other infectious and parasitic diseases; Z86.14 Personal history of Methicillin resistant Staphylococcus aureus infection; Z90.49 Acquired absence of other specified parts of digestive tract; Z98.890 Other specified postprocedural states; Z88.8 Allergy status to other drugs, medicaments and biological substances; Z79.2 Long term (current) use of antibiotics; Z79.899 Other long term (current) drug therapy
CPT/HCPCS: 36415; 80053; 84484; 85025; 93005; 96372; 99284; J1885

== ENCOUNTER 2018-07-12 18:23 | Emergency (ER) | payer MEDICARE, MEDICAID ==
[~2018-07-12] VITALS: Ht 160 cm; Wt 66.6 kg
[~2018-07-12 18:23] MED LIST changes: +ACET-3068 PO; +CEPH500C5 PO; +SULF1TAB49 PO
[2018-07-12] MEDS ORDERED: CefTRIAXone 1000mg IM Kit (w/lidocaine diluent) IM ONE (21:35)
[2018-07-12] MEDS ORDERED: LIDOcaine 1% 30ml preserv. free vial IJ ONE (21:50)
[2018-07-12 22:50] VITALS: BP 133/67
[2018-07-12] MEDS ORDERED: ONDA4TAB6 PO (23:05)
[2018-07-12] MEDS ORDERED: HYDR-3965 PO (23:05)
[2018-07-12] MEDS ORDERED: dexamethasone 4mg tablet PO ONE (23:15)
[2018-07-12] MEDS ORDERED: famotidine 10mg tablet PO ONE (23:15)
[2018-07-12] MEDS ORDERED: famotidine 20mg tablet PO ONE (23:25)
== END 2018-07-13 00:07 | disposition home or self-care (01) ==
LOC: ER 18:23
DX: L02.416 Cutaneous abscess of left lower limb (principal); I48.91 Unspecified atrial fibrillation; I11.0 Hypertensive heart disease with heart failure; I50.9 Heart failure, unspecified; E78.00 Pure hypercholesterolemia, unspecified; J44.9 Chronic obstructive pulmonary disease, unspecified; K21.9 Gastro-esophageal reflux disease without esophagitis; E03.9 Hypothyroidism, unspecified; M19.90 Unspecified osteoarthritis, unspecified site; F12.90 Cannabis use, unspecified, uncomplicated; F15.90 Other stimulant use, unspecified, uncomplicated; F11.90 Opioid use, unspecified, uncomplicated; Z86.73 Personal history of transient ischemic attack (TIA), and cerebral infarction without residual deficits; Z86.19 Personal history of other infectious and parasitic diseases; Z86.14 Personal history of Methicillin resistant Staphylococcus aureus infection; Z90.49 Acquired absence of other specified parts of digestive tract; Z98.890 Other specified postprocedural states; Z59.0 Homelessness; Z88.8 Allergy status to other drugs, medicaments and biological substances; Z79.2 Long term (current) use of antibiotics; Z79.899 Other long term (current) drug therapy
CPT/HCPCS: 10060; 96372; 99284; J0696; J3490; J8540

== ENCOUNTER 2018-07-14 21:48 | Inpatient (IN) | payer MEDICARE, MEDICAID ==
[~2018-07-14] VITALS: Ht 162.6 cm; Wt 60.8 kg
[~2018-07-14 21:48] MED LIST changes: +HYDR-3965 PO; +LIDOcaine 2% (20 mg/ml) 5ml cardiac syringe ONE; +ONDA4TAB6 PO; +rocuronium 10mg/ml inj IV ONE
[2018-07-14] MEDS ORDERED: propofol 1000mg/100ml bottle 100 ML IV PRN ×2 (22:03→23:53)
[2018-07-14] MEDS ORDERED: methylPREDNISolone sod succ 125mg/2ml vial IV ONE (22:05)
[2018-07-14] MEDS ORDERED: levoFLOXACIN-Levaquin 750MG/D5 150 ML IV ONE (22:05)
--- NOTE | 2018-07-14 22:06 | NUR ---
EKG 2200
[2018-07-14 22:25] LABS: ABG BASE EXCESS -14.1 mmol/L (-2.0-3.0); ABG HCO3 17.3 mmol/L (22.0-26.0); ABG OXYGEN SATURATION 87.3 % (95-98); ABG PCO2 (T) 65.8 mmHg (32.0-45.0); ABG PH (T) 7.032 (7.350-7.450); ABG PO2 (T) 70.5 mmHg (83-108); FCOHb 0.6 % (0.5-1.5); FMetHb 0.3 % (0.3-1.12); FO2Hb 86.5 % (94-100); MINUTE VOLUME 9 L/min; PEEP 5 cm H2O; RESPIRATORY RATE 20 b/min; RESPIRATORY RATE (OBSERVED) 20 b/min; TIDAL VOLUME 400 mL; TOTAL HEMOGLOBIN 12.1 G/dl (12.0-16.0)
[2018-07-14] MEDS ORDERED: nitroGLYCERIN-Tridil 50MG/D5W 250 ML IV SCH (22:25)
[2018-07-14] MEDS ORDERED: furosemide 10 MG/1 ML 10ml inj IV ONE (22:25)
[2018-07-14 22:47] LABS: HEMATOCRIT 39.2 % (35.0-45.0); HEMOGLOBIN 12.4 g/dl (12.0-16.0); MEAN CORPUSCULAR HGB CONC 31.5 % (33.0-36.5); MEAN CORPUSCULAR VOLUME 88.9 FL (78-98); MEAN PLATELET VOLUME 8.9 FL (7.4-10.4); PLATELET COUNT 507 X10'3 (140-440); RED BLOOD COUNT 4.41 X10'6 (4.20-5.60); RED CELL DISTRIBUTION WIDTH 16.4 % (11.5-14.5)
[2018-07-14 22:49] LABS: WHITE BLOOD COUNT 31.2 X10'3 (4.5-11.0)
[2018-07-14 22:50] LABS: ALANINE AMINOTRANSFERASE 57 U/L (12-78); ALBUMIN 2.8 G/DL (3.4-5.0); ALBUMIN/GLOBULIN RATIO 0.5 (1.1-1.5); ALKALINE PHOSPHATASE 265 IU/L (46-116); ANION GAP 18 (8-16); ASPARTATE AMINO TRANSFERASE 78 U/L (10-37); BILIRUBIN,TOTAL 0.2 MG/DL (0.1-1.0); BLOOD UREA NITROGEN 22 MG/DL (7-18); BUN/CREATININE RATIO 15.9 (6.6-38.0); CALCIUM 8.7 MG/DL (8.5-10.1); CHLORIDE 100 MMOL/L (99-107); CREATININE 1.38 MG/DL (0.40-0.90); MAGNESIUM 2.1 MG/DL (1.5-2.4); SODIUM 136 MMOL/L (135-145); TOTAL CARBON DIOXIDE 18.3 MMOL/L (24-32); eGFR 38 ML/MIN
[2018-07-14 22:53] LABS: GLUCOSE 276 MG/DL (70-104)
[2018-07-14] MEDS ORDERED: vancomycin/NS 1 GM ADD-VANTAGE 250 ML IV ONE (22:55)
[2018-07-14 23:08] LABS: ANISOCYTOSIS 1+; LARGE PLATELETS FEW; PLATELET ESTIMATE INCREASED; POLYCHROMASIA FEW; TOTAL CELLS COUNTED 100
--- NOTE | 2018-07-14 23:15 | NUR ---
TALKED TO DR RODRIGUEZ ABOUT PTS LABS AND IF SHE NEEDED FLUIDS FOR SEPSIS PROTOCOL. DR RODRIGUEZ STATED SHE WAS TOO FLUID OVERLOADED ON CXR AND THAT MORE FLUIDS WOULD BE DETRIMENTAL TO PT AT THIS TIME
[2018-07-14 23:35] LABS: INR 1.2 INR; PARTIAL THROMBOPLASTIN TIME 26 SECONDS (22-32); PROTHROMBIN TIME 11.7 SECONDS (9.0-12.0)
[2018-07-14] MEDS ORDERED: nitroGLYCERIN-Tridil 50MG/D5W 250 ML IV PRN (23:53)
[2018-07-14] MEDS ORDERED: ondansetron/PF 4mg/2ml inj IV PRN (23:55)
[2018-07-14] MEDS ORDERED: acetaminophen 650mg rectal suppository RC PRN (23:55)
[2018-07-14] MEDS: K, MAG and/or Phos replacement - Verify level? MC SCH (23:55)
[2018-07-14] MEDS ORDERED: potassium Cl 40MEQ/250ML bag 250 ML IV PRN ×2 (23:55)
[2018-07-14] MEDS ORDERED: acetaminophen 325mg tablet PO PRN (23:55)
[2018-07-15] VITALS (22 sets, daily range): BP systolic 99–152; BP diastolic 54–88
[2018-07-15 00:24] LABS: CLARITY,URINE CLEAR (Clear); COLOR,URINE YELLOW (Yellow); UA COLLECTION TYPE FOLEY CATH
[2018-07-15 00:25] LABS: GLUCOSE, URINE NEGATIVE (Neg); KETONES,URINE NEGATIVE (Neg); LEUKOCYTE ESTERASE ,URINE NEGATIVE (Neg); NITRITES, URINE NEGATIVE (Neg); OCCULT BLOOD,URINE TRACE-INTACT (Neg); PROTEIN,URINE 100 mg/dl (Neg); UROBILINOGEN,URINE 0.2 E.U/dL (0.2-1.0)
[2018-07-15 00:27] LABS: BACTERIA,URINE FEW /HPF (Neg); HYALINE CASTS 0-3 /LPF (NEGATIVE); MUCUS STRANDS MODERATE /LPF (Neg); RBC,URINE 0-2 /HPF (0-2); SQUAMOUS EPITHELIAL CELL,UR FEW /LPF (FEW); WBC,URINE 0-4 /HPF (0-4)
[2018-07-15] MEDS ORDERED: LORazepam 2 mg/ml vial IV PRN (02:00)
[2018-07-15] MEDS: methylPREDNISolone sod succ/PF 40mg inj. IV SCH ×4 (02:13→20:30)
[2018-07-15] MEDS: FENTANYL-0.9 % NACL/PF 100 ML IV PRN ×2 (03:00→17:11)
[2018-07-15 03:15] LABS: ABG BASE EXCESS -6.2 mmol/L (-2.0-3.0); ABG HCO3 20.1 mmol/L (22.0-26.0); ABG OXYGEN SATURATION 98.1 % (95-98); ABG PCO2 (T) 42.1 mmHg (32.0-45.0); ABG PH (T) 7.295 (7.350-7.450); ABG PO2 (T) 121.8 mmHg (83-108); ALLEN'S TEST Positive; FCOHb 0.3 % (0.5-1.5); FMetHb 0.2 % (0.3-1.12); FO2Hb 97.6 % (94-100); MINUTE VOLUME 9 L/min; PATIENT TEMPERATURE 36.5; PEEP 8 cm H2O; RESPIRATORY RATE 20 b/min; RESPIRATORY RATE (OBSERVED) 21 b/min; TIDAL VOLUME 400 mL; TOTAL HEMOGLOBIN 11.1 G/dl (12.0-16.0)
[2018-07-15] MEDS: ipratropium/albuterol 3ml nebule NEB SCH ×6 (03:18→23:16)
[2018-07-15] MEDS: NORepinephrine 8mg/ 250ml NS 250 ML IV SCH (03:36)
[2018-07-15] MEDS: levetiracetam inj 1,000 MG in normal saline 100ml IV soln 90 ML IV SCH ×2 (04:13→16:03)
[2018-07-15 04:23] LABS: HEMATOCRIT 32.8 % (35.0-45.0); HEMOGLOBIN 10.6 g/dl (12.0-16.0); MEAN CORPUSCULAR HEMOGLOBIN 28.1 PG (27.0-31.0); MEAN CORPUSCULAR HGB CONC 32.3 % (33.0-36.5); MEAN PLATELET VOLUME 8.1 FL (7.4-10.4); PLATELET COUNT 444 X10'3 (140-440); RED BLOOD COUNT 3.77 X10'6 (4.20-5.60); RED CELL DISTRIBUTION WIDTH 15.3 % (11.5-14.5)
[2018-07-15 04:29] LABS: ALANINE AMINOTRANSFERASE 51 U/L (12-78); ALBUMIN 2.2 G/DL (3.4-5.0); ALBUMIN/GLOBULIN RATIO 0.4 (1.1-1.5); ALKALINE PHOSPHATASE 233 IU/L (46-116); ANION GAP 11 (8-16); ASPARTATE AMINO TRANSFERASE 55 U/L (10-37); BILIRUBIN,TOTAL 0.3 MG/DL (0.1-1.0); BLOOD UREA NITROGEN 25 MG/DL (7-18); BUN/CREATININE RATIO 19.2 (6.6-38.0); CALCIUM 7.9 MG/DL (8.5-10.1); CHLORIDE 104 MMOL/L (99-107); POTASSIUM 4.9 MMOL/L (3.5-5.1); SODIUM 137 MMOL/L (135-145); TOTAL CARBON DIOXIDE 22.3 MMOL/L (24-32); TOTAL PROTEIN 7.1 G/DL (6.4-8.2); eGFR 41 ML/MIN
[2018-07-15 04:33] LABS: WHITE BLOOD COUNT 29.8 X10'3 (4.5-11.0)
[2018-07-15 04:34] LABS: GLUCOSE 232 MG/DL (70-104)
[2018-07-15 04:37] LABS: MAGNESIUM 1.4 MG/DL (1.5-2.4); PHOSPHORUS 4.1 MG/DL (2.3-4.5)
[2018-07-15 04:53] LABS: PLATELET ESTIMATE INCREASED; TOTAL CELLS COUNTED 100
[2018-07-15 04:54] LABS: LARGE PLATELETS FEW
--- NOTE | 2018-07-15 05:10 | NUR ---
[id number] I have received report and assumed care of pt. Pt resting in bed rise and fall of chest cavit equile and symmetrical, no tracial deviation noted, no crepitus noted, pt does not open eyes to verbal commands, pt does have bilateral puncture wounds noted on each hip, photos obtained, the rt hip puncture wounds has a gooden discharge wound care consult placed. pt having clonic movements of bilateral legs, no arm movement noted, however she does have some lip smacking and rapid eyelid movement with nystagmus noted, spoke to Christian Parry NP new orders received to give Ativan 2mg IV and start Keppra IV, no further seizure like activity noted pt started on Levophed at 0330 due to sbp 66/42 see IV flow sheet for details. fentanyl and versed in place for sedation pt taken for a CT of her head via her bed, RT at bedside returned to room without difficulties.
[2018-07-15 06:05] LABS: URINE AMPHETAMINE SCREEN NEGATIVE (Neg); URINE BARBITUATE SCREEN NEGATIVE (Neg); URINE BENZODIAZEPINES SCREEN NEGATIVE (Neg); URINE CANNABINOID SCREEN POSITIVE (Neg); URINE COCAINE SCREEN NEGATIVE (Neg); URINE METHADONE SCREEN NEGATIVE (Neg); URINE OPIATE SCREEN POSITIVE (Neg); URINE PHENCYCLIDINE SCREEN NEGATIVE (Neg)
--- NOTE | 2018-07-15 06:20 | NUR ---
report given to rec rn plan of care reviewed
--- NOTE | 2018-07-15 06:26 | NUR ---
Patient in room CICU 2008. I have received report from CHARY Lombardo and had the opportunity to ask questions and assume patient care.
[2018-07-15] MEDS: K, MAG and/or Phos replacement - Verify level? MC SCH (08:00)
--- NOTE | 2018-07-15 08:15 | NUR ---
technical illustrator in room, pt resting and holding still. Will administer meds once echo is complete
[2018-07-15] MEDS: pantoprazole 40 MG vial IV SCH (09:13)
[2018-07-15] MEDS: heparin, porcine 5000 units/ml vial SQ SCH ×2 (09:14→20:30)
[2018-07-15] MEDS: furosemide 40mg/4ml inj IV SCH ×2 (09:14→20:30)
[2018-07-15] MEDS: midazolam 100mg in NS 100ml 100 ML IV PRN (11:27)
--- NOTE | 2018-07-15 12:00 | NUR ---
Initial: Pt intubated admit w/ anoxic brain damage, CHF. Hx homeless, IVDA MRSA abscesses to bilateral thighs w/ I&D 07/12, hep C, HTN, COPD. GLU 230 on solumedrol; VIDA d/w RN to start hyperglycemic protocol in addition to new A1C check per MD approval given last 11/30 5.3. Will monitor for nutrition support needs if prolonged intubation. Rec: 1. IF TF; Vital AF at ml/hr goal 2. IF TF; prealbumin Q /, daily wts 3. MVI for wounds once PO 4. new A1C given hx; hyperglycemic protocol GLU 230 on solumedrol Addendum: 07/15/18 at [address] Amended: Links added. Addendum: 07/15/18 at [address] Initial: Pt intubated admit w/ anoxic brain damage, CHF. Hx homeless, IVDA MRSA abscesses to bilateral thighs w/ I&D 07/12, hep C, HTN, COPD. GLU 230 on solumedrol; RD d/w RN to start hyperglycemic protocol in addition to new A1C check per MD approval given last 11/30 5.3. Will monitor for nutrition support needs if prolonged intubation. Rec: 1. IF TF; Vital AF at 65 ml/hr goal 2. IF TF; prealbumin Q /, daily wts 3. MVI for wounds once PO 4. new A1C given hx; hyperglycemic protocol GLU 230 on solumedrol
[2018-07-15] MEDS ORDERED: glucagon, human recombinant 1mg kit SUBCUT PRN (12:05)
[2018-07-15] MEDS ORDERED: insulin Lispro (HumaLOG) vial - multi-dose SQ SCH (12:05)
[2018-07-15] MEDS ORDERED: dextrose ORAL solution 15 GM/59 ML bottle PO PRN ×2 (12:05)
[2018-07-15] MEDS ORDERED: MESSAGE TO PHARMACY PO ONE (12:05)
[2018-07-15] MEDS ORDERED: insulin regular, human vial - multi-dose SQ SCH (12:05)
[2018-07-15] MEDS ORDERED: dextrose 50%-water 50ml dispensing syringe IV PRN ×2 (12:05)
--- NOTE | 2018-07-15 12:23 | NUR ---
Spoke with life science technician who stated she will complete EEG tomorrow 07/16 since pt on keppra and not having active seizures
[2018-07-15 13:22] LABS: HEMOGLOBIN A1C 5.8 % (4.5-6.2)
--- NOTE | 2018-07-15 14:00 | NUR ---
Pt upset after conversation with Dr. Scott. Writing notes stating she has not done IV drugs in 3 months and that she is taking norco for pain after surgery for fasciitis on her hips which is why her drug screen was positive. Pt crying and stating that she is tired of people assuming her issues are drug related and that she is trying really hard to stop. Requesting me to tell Dr. Scott and the rest of the staff about our conversation.
[2018-07-15] MEDS: insulin regular, human vial - multi-dose SQ SCH ×2 (14:27→20:49)
[2018-07-15] MEDS ORDERED: magnesium 2GM in 50ml NS 50 ML IV PRN (15:50)
[2018-07-15] MEDS ORDERED: magnesium 4gm in 100ml NS 100 ML IV PRN (15:50)
[2018-07-15] MEDS ORDERED: magnesium Cl slow-release 64mg tablet PO PRN (15:50)
--- NOTE | 2018-07-15 18:37 | NUR ---
Problems reprioritized. Patient report given, questions answered & plan of care reviewed with CHARY Pena.
--- NOTE | 2018-07-15 18:38 | NUR ---
Patient in room CICU 2008. I have received report from Fara DIEZ, and had the opportunity to ask questions and assume patient care.
--- NOTE | 2018-07-15 19:30 | NUR ---
PT resting with no s/s of distress noted at this time. PT is intubated and mechanically vented, tolerating vent settings sedation well. PT receiving Fentanyl and Versed. PT is easy to wake and writes notes to communicate. OG in place connected to LIS, there is not any output noted in the suction canister, there is some yellow output noted in the tubing. Spencer in place draining to gravity. Bilat soft wrist restraints in place and secure. Bed is locked and low. Call light is within reach and PT is able to use appropriately. Will continue to monitor.
[2018-07-15] MEDS: insulin glargine (Lantus) pen - multi-dose SQ SCH (20:50)
--- NOTE | 2018-07-15 23:00 | NUR ---
PT resting with no s/s of distress noted at this time. VSS. Bed is locked and low. Bilat soft wrist restraints remain in place. Will continue to monitor.
[2018-07-15] MEDS: vancomycin/NS 1 GM ADD-VANTAGE 250 ML IV SCH (23:52)
[2018-07-16] VITALS (23 sets, daily range): BP systolic 111–186; BP diastolic 52–104
[2018-07-16] MEDS: methylPREDNISolone sod succ/PF 40mg inj. IV SCH ×4 (02:09→19:33)
[2018-07-16] MEDS: mineral oil/petrolatum ophthal oint EACHEYE SCH ×4 (02:09→19:34)
[2018-07-16] MEDS: insulin regular, human vial - multi-dose SQ SCH ×4 (02:54→21:08)
[2018-07-16] MEDS: levetiracetam inj 1,000 MG in normal saline 100ml IV soln 90 ML IV SCH ×2 (02:58→15:05)
[2018-07-16 03:10] LABS: BASOPHILS % (AUTO) 0.1 % (0-1); EOSINOPHILS % (AUTO) 0 % (0-6); HEMATOCRIT 28.6 % (35.0-45.0); HEMOGLOBIN 9.4 g/dl (12.0-16.0); LYMPHOCYTES # (AUTO) 0.7 X10'3 (1.1-4.8); LYMPHOCYTES % (AUTO) 8.5 % (21-51); MEAN CORPUSCULAR HEMOGLOBIN 28.5 PG (27.0-31.0); MEAN CORPUSCULAR HGB CONC 33.1 % (33.0-36.5); MEAN CORPUSCULAR VOLUME 86.3 FL (78-98); MEAN PLATELET VOLUME 7.9 FL (7.4-10.4); MONOCYTES # (AUTO) 0.3 X10'3 (0-0.9); MONOCYTES % (AUTO) 3.5 % (2-12); NEUTROPHILS # (AUTO) 7.8 X10'3 (1.8-7.7); NEUTROPHILS % (AUTO) 87.9 % (42-75); PLATELET COUNT 251 X10'3 (140-440); RED BLOOD COUNT 3.31 X10'6 (4.20-5.60); RED CELL DISTRIBUTION WIDTH 15.8 % (11.5-14.5); WHITE BLOOD COUNT 8.8 X10'3 (4.5-11.0)
[2018-07-16] MEDS: ipratropium/albuterol 3ml nebule NEB SCH ×5 (03:10→19:49)
[2018-07-16 03:14] LABS: ALANINE AMINOTRANSFERASE 43 U/L (12-78); ALBUMIN 2.2 G/DL (3.4-5.0); ALBUMIN/GLOBULIN RATIO 0.5 (1.1-1.5); ALKALINE PHOSPHATASE 175 IU/L (46-116); ANION GAP 12 (8-16); ASPARTATE AMINO TRANSFERASE 36 U/L (10-37); BILIRUBIN,TOTAL 0.3 MG/DL (0.1-1.0); BLOOD UREA NITROGEN 32 MG/DL (7-18); BUN/CREATININE RATIO 24.4 (6.6-38.0); CALCIUM 8.2 MG/DL (8.5-10.1); CHLORIDE 104 MMOL/L (99-107); CREATININE 1.31 MG/DL (0.40-0.90); GLUCOSE 237 MG/DL (70-104); PHOSPHORUS 3.5 MG/DL (2.3-4.5); POTASSIUM 3.6 MMOL/L (3.5-5.1); SODIUM 140 MMOL/L (135-145); TOTAL CARBON DIOXIDE 23.8 MMOL/L (24-32); TOTAL PROTEIN 6.7 G/DL (6.4-8.2); eGFR 40 ML/MIN
[2018-07-16] MEDS: midazolam 100mg in NS 100ml 100 ML IV PRN (03:19)
[2018-07-16 03:26] LABS: ABG BASE EXCESS -2.2 mmol/L (-2.0-3.0); ABG HCO3 20.9 mmol/L (22.0-26.0); ABG OXYGEN SATURATION 98.5 % (95-98); ABG PCO2 (T) 28.5 mmHg (32.0-45.0); ABG PH (T) 7.479 (7.350-7.450); ABG PO2 (T) 123.1 mmHg (83-108); ALLEN'S TEST Positive; FCOHb 0.3 % (0.5-1.5); FO2Hb 98.2 % (94-100); MINUTE VOLUME 9 L/min; PATIENT TEMPERATURE 35.8; PEEP 5 cm H2O; RESPIRATORY RATE 20 b/min; RESPIRATORY RATE (OBSERVED) 20 b/min; TIDAL VOLUME 400 mL; TOTAL HEMOGLOBIN 9.9 G/dl (12.0-16.0)
--- NOTE | 2018-07-16 06:22 | NUR ---
Problems reprioritized. Patient report given, questions answered & plan of care reviewed with Liz DIEZ.
[2018-07-16] MEDS: FENTANYL-0.9 % NACL/PF 100 ML IV PRN (07:20)
[2018-07-16] MEDS: furosemide 40mg/4ml inj IV SCH (07:38)
[2018-07-16] MEDS: pantoprazole 40 MG vial IV SCH (07:40)
[2018-07-16] MEDS: heparin, porcine 5000 units/ml vial SQ SCH ×2 (07:40→19:34)
[2018-07-16] MEDS: levoFLOXACIN-Levaquin 750MG/D5 150 ML IV SCH (07:41)
[2018-07-16] MEDS: K, MAG and/or Phos replacement - Verify level? MC SCH (08:05)
[2018-07-16] MEDS ORDERED: ipratropium/albuterol 3ml nebule NEB PRN (11:15)
[2018-07-16] MEDS ORDERED: racepinephrine 11.25mg/0.5ml nebule NEB PRN (11:15)
--- NOTE | 2018-07-16 12:20 | NUR ---
1000 patient severely anxious and agitated, reaching for ET tube, banging against the rail. coughed up OG tube. 1150 Patient extubated, tolerating well
[2018-07-16] MEDS: acetaminophen 325mg tablet PO PRN ×2 (15:00→22:05)
[2018-07-16] MEDS: clonazePAM 0.5mg tablet PO PRN (16:15)
--- NOTE | 2018-07-16 18:30 | NUR ---
Patient in room CICU 2007. I have received report from Liz DIEZ, and had the opportunity to ask questions and assume patient care.
[2018-07-16] MEDS: naproxen 500mg tablet PO SCH (19:34)
[2018-07-16] MEDS: lactobacillus rhamnosus 10,000 MMU CELLS/CAPSULE PO SCH (19:34)
[2018-07-16] MEDS ORDERED: non-formulary drug (Albuterol Sulfate (Proventil Hfa) 2 PUFFS) INH SCH (20:00)
--- NOTE | 2018-07-16 20:00 | NUR ---
PT resting with no s/s of distress noted at this time. VSS. PT is on RA and tolerating well, O2 sat >95%. Spencer in place draining to gravity. PT is agitated and grumpy at times. Bed is locked and low. Call light is within reach and PT is able to use appropriately. Will continue to monitor.
[2018-07-16] MEDS: gabapentin 300mg capsule PO SCH (20:58)
[2018-07-16] MEDS: insulin glargine (Lantus) pen - multi-dose SQ SCH (21:08)
[2018-07-16] MEDS ORDERED: TRAZ-218 PO (23:19)
--- NOTE | 2018-07-16 23:30 | NUR ---
PT resting with no s/s of distress noted at this time. VSS. Bed is locked and low. Will continue to monitor.
[2018-07-16] MEDS: vancomycin/NS 1 GM ADD-VANTAGE 250 ML IV SCH (23:43)
[2018-07-16] MEDS: traZODone 50mg tablet PO SCH (23:44)
[2018-07-16] MEDS ORDERED: lactulose 20gm/30ml cup PO PRN (23:55)
[2018-07-17] VITALS (17 sets, daily range): BP systolic 129–176; BP diastolic 56–102
[2018-07-17] MEDS: mineral oil/petrolatum ophthal oint EACHEYE SCH ×2 (02:00→08:00)
[2018-07-17] MEDS: methylPREDNISolone sod succ/PF 40mg inj. IV SCH ×4 (02:54→20:53)
[2018-07-17] MEDS: levetiracetam inj 1,000 MG in normal saline 100ml IV soln 90 ML IV SCH ×2 (02:56→16:57)
[2018-07-17] MEDS: ipratropium/albuterol 3ml nebule NEB SCH ×4 (03:00→20:46)
--- NOTE | 2018-07-17 03:00 | NUR ---
PT continues to rest with no s/s of distress noted at this time. VSS. Bed is locked and low. Will continue to monitor.
[2018-07-17] MEDS: NORepinephrine 8mg/ 250ml NS 250 ML IV SCH (03:10)
[2018-07-17 03:25] LABS: ALANINE AMINOTRANSFERASE 53 U/L (12-78); ALBUMIN 2.3 G/DL (3.4-5.0); ALBUMIN/GLOBULIN RATIO 0.6 (1.1-1.5); ALKALINE PHOSPHATASE 166 IU/L (46-116); ANION GAP 10 (8-16); BILIRUBIN,TOTAL 0.4 MG/DL (0.1-1.0); BLOOD UREA NITROGEN 46 MG/DL (7-18); BUN/CREATININE RATIO 35.4 (6.6-38.0); CALCIUM 8.1 MG/DL (8.5-10.1); CHLORIDE 101 MMOL/L (99-107); GLUCOSE 94 MG/DL (70-104); MAGNESIUM 2.1 MG/DL (1.5-2.4); SODIUM 136 MMOL/L (135-145); TOTAL CARBON DIOXIDE 24.9 MMOL/L (24-32); TOTAL PROTEIN 6.4 G/DL (6.4-8.2); eGFR 41 ML/MIN
[2018-07-17 03:26] LABS: BASOPHILS # (AUTO) 0.1 X10'3 (0-0.2); BASOPHILS % (AUTO) 0.5 % (0-1); EOSINOPHILS % (AUTO) 0.1 % (0-6); HEMATOCRIT 26.5 % (35.0-45.0); HEMOGLOBIN 8.8 g/dl (12.0-16.0); LYMPHOCYTES # (AUTO) 0.7 X10'3 (1.1-4.8); LYMPHOCYTES % (AUTO) 7.1 % (21-51); MEAN CORPUSCULAR HEMOGLOBIN 28.5 PG (27.0-31.0); MEAN CORPUSCULAR HGB CONC 33.1 % (33.0-36.5); MEAN CORPUSCULAR VOLUME 86.2 FL (78-98); MEAN PLATELET VOLUME 8.8 FL (7.4-10.4); MONOCYTES # (AUTO) 0.2 X10'3 (0-0.9); MONOCYTES % (AUTO) 1.6 % (2-12); NEUTROPHILS # (AUTO) 9.4 X10'3 (1.8-7.7); NEUTROPHILS % (AUTO) 90.7 % (42-75); PLATELET COUNT 251 X10'3 (140-440); RED BLOOD COUNT 3.07 X10'6 (4.20-5.60); RED CELL DISTRIBUTION WIDTH 15.8 % (11.5-14.5); WHITE BLOOD COUNT 10.4 X10'3 (4.5-11.0)
[2018-07-17 03:33] LABS: ASPARTATE AMINO TRANSFERASE 68 U/L (10-37); PHOSPHORUS 4.4 MG/DL (2.3-4.5); POTASSIUM 4.3 MMOL/L (3.5-5.1)
--- NOTE | 2018-07-17 06:39 | NUR ---
Problems reprioritized. Patient report given, questions answered & plan of care reviewed with Ladan DIEZ.
[2018-07-17] MEDS: atenolol 25mg tablet PO SCH (07:50)
[2018-07-17] MEDS: folic acid 1mg tablet PO SCH (07:50)
[2018-07-17] MEDS: lisinopril 10 MG tablet PO SCH (07:51)
[2018-07-17] MEDS: lactobacillus rhamnosus 10,000 MMU CELLS/CAPSULE PO SCH ×2 (07:51→20:52)
[2018-07-17] MEDS: gabapentin 300mg capsule PO SCH ×3 (07:51→20:52)
[2018-07-17] MEDS: naproxen 500mg tablet PO SCH ×2 (07:51→20:52)
[2018-07-17] MEDS: pantoprazole 40mg Tablet.DR PO SCH (07:51)
[2018-07-17] MEDS: furosemide 40mg tablet PO SCH (07:52)
[2018-07-17] MEDS: thiamine 100mg tablet PO SCH (07:52)
[2018-07-17] MEDS: clonazePAM 0.5mg tablet PO PRN ×3 (07:52→20:52)
[2018-07-17] MEDS: heparin, porcine 5000 units/ml vial SQ SCH ×2 (08:00→20:00)
[2018-07-17] MEDS: K, MAG and/or Phos replacement - Verify level? MC SCH (08:00)
[2018-07-17] MEDS: levoTHYROXINE 25mcg tablet PO SCH (08:30)
[2018-07-17] MEDS: insulin Lispro (HumaLOG) vial - multi-dose SQ SCH (09:33)
--- NOTE | 2018-07-17 11:32 | NUR ---
Reassessment: Pt has been extubated. Diet has been advanced to clear liquid with documented intake 100%. Pt with A1c 5.8 taken 07/15/18. LBM 07/14. Will continue to follow. Rec: 1. Advance to heart healthy diet as medically indicated 2. Monitor need for additional bowel care 3. MVI for wounds 4. Wt per rx Addendum: 07/17/18 at [address] Amended: Links added.
--- NOTE | 2018-07-17 14:00 | NUR ---
Received pt report from Ladan DIEZ. Awaiting patient's arrival.
--- NOTE | 2018-07-17 14:02 | NUR ---
Problems reprioritized. Patient report given, questions answered & plan of care reviewed with Yuli DIEZ on PCU.
--- NOTE | 2018-07-17 14:30 | NUR ---
Patient in room PCU 3026. I have received report from Ladan and had the opportunity to ask questions and assume patient care. Tele monitor is on pt, vital signs obtained and are stable, pt is alert and oriented X 4, gave pt call light and oriented pt to room. Will continue to monitor.
--- NOTE | 2018-07-17 15:22 | NUR ---
Extended PIV inserted to the right upper arm brachial vein x 1 attempt using ultrasound. Simone well Addendum: 07/17/18 at 1523 by Jennifer Rosario RN Amended: Links added.
--- NOTE | 2018-07-17 18:22 | NUR ---
Problems reprioritized. Patient report given, questions answered & plan of care reviewed with Moises DIEZ.
--- NOTE | 2018-07-17 19:00 | NUR ---
Patient in room PCU 3026. I have received report from Yuli DIEZ and had the opportunity to ask questions and assume patient care.
[2018-07-17] MEDS: traZODone 50mg tablet PO SCH (20:52)
[2018-07-17] MEDS ORDERED: traZODone 50mg tablet PO SCH (21:00)
[2018-07-17] MEDS: insulin glargine (Lantus) pen - multi-dose SQ SCH (21:50)
[2018-07-17] MEDS ORDERED: VANCOMYCIN LEVEL IV ONE (22:30)
[2018-07-17] MEDS: vancomycin/NS 1 GM ADD-VANTAGE 250 ML IV SCH (22:53)
[2018-07-18] VITALS (10 sets, daily range): BP systolic 105–151; BP diastolic 58–90
--- NOTE | 2018-07-18 01:47 | NUR ---
Patient in room PCU 3026. I have received report from Moises DIEZ and had the opportunity to ask questions and assume patient care.
[2018-07-18] MEDS: methylPREDNISolone sod succ/PF 40mg inj. IV SCH ×3 (02:11→13:40)
[2018-07-18] MEDS: levetiracetam inj 1,000 MG in normal saline 100ml IV soln 90 ML IV SCH (02:11)
[2018-07-18] MEDS: ipratropium/albuterol 3ml nebule NEB SCH ×4 (03:05→20:45)
[2018-07-18] MEDS ORDERED: nitroGLYCERIN 0.4mg SUBLingual tab SL ONE (03:57)
[2018-07-18] MEDS ORDERED: amiodarone 150mg/dext, iso-os 100 ML IV ONE (04:20)
[2018-07-18] MEDS ORDERED: clonazePAM 0.5mg tablet PO ONE (04:30)
[2018-07-18] MEDS: amiodarone/D5 360MG/200ML BAG 200 ML IV SCH ×4 (04:40→21:16)
[2018-07-18] MEDS ORDERED: amiodarone 50MG/ML inj IV ONE (04:40)
--- NOTE | 2018-07-18 04:58 | NUR ---
Rapid Response Called. Rapid response called at 0357. Patient had new onset tachycardia in the 170s. Upon entering the room, the patient was sitting upright in bed complaining of chest pain and difficulty breathing. EKG was obtained immediately showing acute WA and ventricular tachycardia with a rate in the 180s. Mikael DIEZ administered two SL nitroglycerin tablets. Uzma DIEZ, the rapid response nurse arrived along with respiratory therapy and physician. It was determined the patient was in atrial fibrillation and amiodarone was administered. The patient has been started on an amiodarone drip and placed on a mobile bedside monitor. Oxygen was also applied via nonrebreather. Patient is now on 2L NC. Labs were drawn as well during the rapid.
[2018-07-18 05:00] LABS: BASOPHILS % (AUTO) 0.1 % (0-1); EOSINOPHILS % (AUTO) 0.1 % (0-6); HEMATOCRIT 34.8 % (35.0-45.0); HEMOGLOBIN 11.1 g/dl (12.0-16.0); LYMPHOCYTES # (AUTO) 0.6 X10'3 (1.1-4.8); LYMPHOCYTES % (AUTO) 5.1 % (21-51); MEAN CORPUSCULAR HEMOGLOBIN 27.9 PG (27.0-31.0); MEAN CORPUSCULAR HGB CONC 32.1 % (33.0-36.5); MEAN CORPUSCULAR VOLUME 86.8 FL (78-98); MONOCYTES # (AUTO) 0.2 X10'3 (0-0.9); NEUTROPHILS # (AUTO) 10.3 X10'3 (1.8-7.7); NEUTROPHILS % (AUTO) 92.7 % (42-75); PLATELET COUNT 268 X10'3 (140-440); RED CELL DISTRIBUTION WIDTH 15.9 % (11.5-14.5); WHITE BLOOD COUNT 11.1 X10'3 (4.5-11.0)
[2018-07-18 05:06] LABS: ALANINE AMINOTRANSFERASE 89 U/L (12-78); ALBUMIN 2.5 G/DL (3.4-5.0); ALBUMIN/GLOBULIN RATIO 0.6 (1.1-1.5); ALKALINE PHOSPHATASE 168 IU/L (46-116); ANION GAP 10 (8-16); BILIRUBIN,TOTAL 0.5 MG/DL (0.1-1.0); BLOOD UREA NITROGEN 49 MG/DL (7-18); BUN/CREATININE RATIO 38.6 (6.6-38.0); CALCIUM 7.8 MG/DL (8.5-10.1); CHLORIDE 103 MMOL/L (99-107); CREATININE 1.27 MG/DL (0.40-0.90); GLUCOSE 281 MG/DL (70-104); SODIUM 136 MMOL/L (135-145); TOTAL CARBON DIOXIDE 22.8 MMOL/L (24-32); TOTAL PROTEIN 6.9 G/DL (6.4-8.2); eGFR 42 ML/MIN
[2018-07-18 05:10] LABS: ASPARTATE AMINO TRANSFERASE 110 U/L (10-37); POTASSIUM 5.1 MMOL/L (3.5-5.1)
[2018-07-18] MEDS ORDERED: amiodarone in dextrose, iso-osm 150mg/100ml bag IV ONE (05:10)
[2018-07-18 05:14] LABS: MAGNESIUM 1.8 MG/DL (1.5-2.4); TROPONIN I 0.07 NG/ML (0.0-0.05)
[2018-07-18 05:18] LABS: PHOSPHORUS 3.6 MG/DL (2.3-4.5)
--- NOTE | 2018-07-18 06:21 | NUR ---
Problems reprioritized. Patient report given, questions answered & plan of care reviewed with Yuli DIEZ.
--- NOTE | 2018-07-18 06:41 | NUR ---
Patient in room PCU 3024. I have received report from Matthew DIEZ and had the opportunity to ask questions and assume patient care.
[2018-07-18] MEDS ORDERED: morphine 2 MG/ML inj. syringe IV PRN (06:55)
[2018-07-18] MEDS ORDERED: diltiazem 5mg/ml 5ml inj. IV ONE (07:05)
[2018-07-18] MEDS: K, MAG and/or Phos replacement - Verify level? MC SCH (08:00)
[2018-07-18] MEDS: insulin Lispro (HumaLOG) vial - multi-dose SQ SCH ×3 (09:51→18:54)
[2018-07-18] MEDS: levoFLOXACIN-Levaquin 750MG/D5 150 ML IV SCH (09:52)
[2018-07-18] MEDS: furosemide 40mg tablet PO SCH (09:53)
[2018-07-18] MEDS: atenolol 25mg tablet PO SCH (09:53)
[2018-07-18] MEDS: gabapentin 300mg capsule PO SCH ×3 (09:53→20:57)
[2018-07-18] MEDS: levoTHYROXINE 25mcg tablet PO SCH (09:53)
[2018-07-18] MEDS: folic acid 1mg tablet PO SCH (09:54)
[2018-07-18] MEDS: pantoprazole 40mg Tablet.DR PO SCH (09:54)
[2018-07-18] MEDS: naproxen 500mg tablet PO SCH ×2 (09:54→20:54)
[2018-07-18] MEDS: thiamine 100mg tablet PO SCH (09:54)
[2018-07-18] MEDS: lisinopril 10 MG tablet PO SCH (09:55)
[2018-07-18] MEDS: heparin, porcine 5000 units/ml vial SQ SCH ×2 (09:57→20:56)
[2018-07-18] MEDS: clonazePAM 0.5mg tablet PO PRN (10:12)
[2018-07-18] MEDS: lactobacillus rhamnosus 10,000 MMU CELLS/CAPSULE PO SCH ×2 (10:12→20:54)
--- NOTE | 2018-07-18 18:33 | NUR ---
Problems reprioritized. Patient report given, questions answered & plan of care reviewed with Marisa DIEZ.
[2018-07-18] MEDS: LORazepam 0.5 MG tablet PO PRN (18:50)
--- NOTE | 2018-07-18 19:00 | NUR ---
Patient in room PCU 3024. I have received report from marley ho and had the opportunity to ask questions and assume patient care.
[2018-07-18] MEDS ORDERED: levetiracetam 250mg tablet PO SCH (20:00)
[2018-07-18] MEDS: traZODone 50mg tablet PO SCH (20:56)
[2018-07-18] MEDS: insulin glargine (Lantus) pen - multi-dose SQ SCH (21:09)
--- NOTE | 2018-07-18 21:59 | NUR ---
Gave pt 16 units of Lantus at 2120, blood sugar was 85 will continue to monitor Addendum: 07/18/18 at 2252 by Roz Norris RN patient received a snack with bedtime insulin
[2018-07-18] MEDS ORDERED: VANCOMYCIN LEVEL IV ONE (22:30)
[2018-07-18] MEDS: vancomycin/NS 1 GM ADD-VANTAGE 250 ML IV SCH (23:36)
--- NOTE | 2018-07-19 01:27 | NUR ---
turned off amio gtt at 0030 per steffen bennett order; qti 0.47 on tele monitor. sabrina ordered po amio 200mg bid
--- NOTE | 2018-07-19 01:36 | NUR ---
Called Ananya about prolonged QT interval 0.47 while on amiodarone drip, and got an order to DC drip, a new PO amiodarone at 0030 Addendum: 07/19/18 at 0140 by Jeanie Naik RN Ananya ordered 200mg Amiodarone BID PO
[2018-07-19 03:00] VITALS: BP 149/54
[2018-07-19] MEDS: ipratropium/albuterol 3ml nebule NEB SCH ×4 (03:00→20:12)
[2018-07-19 05:22] LABS: BASOPHILS % (AUTO) 0.3 % (0-1); EOSINOPHILS % (AUTO) 0 % (0-6); HEMATOCRIT 32.1 % (35.0-45.0); HEMOGLOBIN 10.1 g/dl (12.0-16.0); LYMPHOCYTES # (AUTO) 1.5 X10'3 (1.1-4.8); LYMPHOCYTES % (AUTO) 13.3 % (21-51); MEAN CORPUSCULAR HGB CONC 31.3 % (33.0-36.5); MEAN CORPUSCULAR VOLUME 86.3 FL (78-98); MEAN PLATELET VOLUME 7.8 FL (7.4-10.4); MONOCYTES # (AUTO) 0.3 X10'3 (0-0.9); NEUTROPHILS # (AUTO) 9.5 X10'3 (1.8-7.7); NEUTROPHILS % (AUTO) 83.4 % (42-75); PLATELET COUNT 336 X10'3 (140-440); RED BLOOD COUNT 3.72 X10'6 (4.20-5.60); RED CELL DISTRIBUTION WIDTH 15.9 % (11.5-14.5); WHITE BLOOD COUNT 11.3 X10'3 (4.5-11.0)
[2018-07-19] MEDS: LORazepam 0.5 MG tablet PO PRN ×3 (05:29→18:50)
[2018-07-19 05:41] LABS: ALANINE AMINOTRANSFERASE 94 U/L (12-78); ALBUMIN 2.3 G/DL (3.4-5.0); ALBUMIN/GLOBULIN RATIO 0.6 (1.1-1.5); ALKALINE PHOSPHATASE 160 IU/L (46-116); ANION GAP 8 (8-16); ASPARTATE AMINO TRANSFERASE 100 U/L (10-37); BILIRUBIN,DIRECT 0.1 MG/DL (0-0.3); BILIRUBIN,TOTAL 0.3 MG/DL (0.1-1.0); BLOOD UREA NITROGEN 40 MG/DL (7-18); BUN/CREATININE RATIO 30.5 (6.6-38.0); CALCIUM 7.8 MG/DL (8.5-10.1); CHLORIDE 106 MMOL/L (99-107); CREATININE 1.31 MG/DL (0.40-0.90); GLUCOSE 129 MG/DL (70-104); MAGNESIUM 1.7 MG/DL (1.5-2.4); PHOSPHORUS 3.5 MG/DL (2.3-4.5); POTASSIUM 3.8 MMOL/L (3.5-5.1); SODIUM 140 MMOL/L (135-145); TOTAL CARBON DIOXIDE 26.5 MMOL/L (24-32); TOTAL PROTEIN 6.1 G/DL (6.4-8.2); eGFR 40 ML/MIN
[2018-07-19 06:00] VITALS: BP 167/94
--- NOTE | 2018-07-19 06:20 | NUR ---
orientee Medication Administration: For this medication-pass time frame, all medication were reviewed, dispensed, administered and documented per hospital policy by marlon ho.
--- NOTE | 2018-07-19 06:20 | NUR ---
orientee documentation: I have reviewed and agree with all interventions, assessments performed and documented by marlon ho.
--- NOTE | 2018-07-19 06:21 | NUR ---
Problems reprioritized. Patient report given, questions answered & plan of care reviewed with Yuli DIEZ. Addendum: 07/19/18 at 0625 by Roz Norris RN patient asleep in no distress
--- NOTE | 2018-07-19 06:21 | NUR ---
Patient in room PCU 3014. I have received report from Marisa DIEZ and had the opportunity to ask questions and assume patient care. Pt is sleeping and vital signs are stable. Pt is on room air and saline locked. Will continue to monitor.
[2018-07-19] MEDS: folic acid 1mg tablet PO SCH (07:21)
[2018-07-19] MEDS: predniSONE 20 mg tablet PO SCH (07:21)
[2018-07-19] MEDS: amiodarone 200mg tablet PO SCH ×2 (07:22→20:43)
[2018-07-19] MEDS: lisinopril 10 MG tablet PO SCH (07:22)
[2018-07-19] MEDS: levoTHYROXINE 25mcg tablet PO SCH (07:22)
[2018-07-19] MEDS: thiamine 100mg tablet PO SCH (07:22)
[2018-07-19] MEDS: atenolol 25mg tablet PO SCH (07:22)
[2018-07-19] MEDS: pantoprazole 40mg Tablet.DR PO SCH (07:23)
[2018-07-19] MEDS: furosemide 40mg tablet PO SCH (07:23)
[2018-07-19] MEDS: naproxen 500mg tablet PO SCH ×2 (07:23→20:43)
[2018-07-19] MEDS: lactobacillus rhamnosus 10,000 MMU CELLS/CAPSULE PO SCH ×2 (07:23→20:43)
[2018-07-19] MEDS: gabapentin 300mg capsule PO SCH ×3 (07:23→20:43)
[2018-07-19] MEDS: heparin, porcine 5000 units/ml vial SQ SCH ×2 (07:24→20:43)
[2018-07-19] MEDS: K, MAG and/or Phos replacement - Verify level? MC SCH (08:00)
[2018-07-19] MEDS: insulin Lispro (HumaLOG) vial - multi-dose SQ SCH ×3 (08:44→19:24)
[2018-07-19 11:00] VITALS: BP 147/94
[2018-07-19] MEDS: diltiazem CD 120mg capsule (once-daily) PO SCH (12:10)
[2018-07-19 15:00] VITALS: BP 140/82
[2018-07-19 18:00] VITALS: BP 159/105
--- NOTE | 2018-07-19 18:11 | NUR ---
Problems reprioritized. Patient report given, questions answered & plan of care reviewed with Tona DIEZ.
[2018-07-19] MEDS: traZODone 50mg tablet PO SCH (20:43)
--- NOTE | 2018-07-19 21:25 | NUR ---
PAGER ID: [phone] MESSAGE: Room 3014B Marleen Ho Heart rate up to 140's-160's and sustaining. Scheduled PO amio 200mg given 45 min ago. Nothing else odered till am. Thanks. Tona DIEZ #[id number]
[2018-07-19] MEDS ORDERED: diltiazem CD 180mg cap (once-daily) PO ONE (21:30)
[2018-07-19] MEDS ORDERED: diltiazem 5mg/ml 5ml inj. IV ONE (21:30)
[2018-07-19 22:00] VITALS: BP 146/91
[2018-07-19] MEDS: insulin glargine (Lantus) pen - multi-dose SQ SCH (23:11)
[2018-07-19] MEDS: vancomycin inj 1,250 MG in normal saline 250ml IV soln 250 ML IV SCH (23:36)
[2018-07-20 02:00] VITALS: BP 101/62
[2018-07-20] MEDS: ipratropium/albuterol 3ml nebule NEB SCH ×4 (02:23→20:11)
[2018-07-20] MEDS: LORazepam 0.5 MG tablet PO PRN ×3 (02:37→19:16)
--- NOTE | 2018-07-20 06:15 | NUR ---
Problems reprioritized. Patient report given, questions answered & plan of care reviewed with Eden DIEZ.
[2018-07-20 06:30] VITALS: BP 141/99
--- NOTE | 2018-07-20 07:04 | NUR ---
Patient in room PCU 3014. I have received report from CHARY GOMEZ SBAR AND BEDSIDE and had the opportunity to ask questions and assume patient care.
[2018-07-20] MEDS: K, MAG and/or Phos replacement - Verify level? MC SCH (08:00)
[2018-07-20] MEDS: lactobacillus rhamnosus 10,000 MMU CELLS/CAPSULE PO SCH ×2 (09:13→20:37)
[2018-07-20] MEDS: naproxen 500mg tablet PO SCH ×2 (09:13→20:37)
[2018-07-20 09:15] LABS: BASOPHILS # (AUTO) 0.1 X10'3 (0-0.2); BASOPHILS % (AUTO) 0.7 % (0-1); EOSINOPHILS # (AUTO) 0.1 X10'3 (0-0.9); EOSINOPHILS % (AUTO) 1.6 % (0-6); HEMOGLOBIN 10.5 g/dl (12.0-16.0); LYMPHOCYTES # (AUTO) 1.4 X10'3 (1.1-4.8); LYMPHOCYTES % (AUTO) 15.1 % (21-51); MEAN CORPUSCULAR HEMOGLOBIN 27.4 PG (27.0-31.0); MEAN CORPUSCULAR HGB CONC 31.9 % (33.0-36.5); MEAN CORPUSCULAR VOLUME 85.6 FL (78-98); MEAN PLATELET VOLUME 7.8 FL (7.4-10.4); MONOCYTES # (AUTO) 0.3 X10'3 (0-0.9); NEUTROPHILS # (AUTO) 7.2 X10'3 (1.8-7.7); NEUTROPHILS % (AUTO) 79.6 % (42-75); PLATELET COUNT 326 X10'3 (140-440); RED BLOOD COUNT 3.85 X10'6 (4.20-5.60)
[2018-07-20] MEDS: amiodarone 200mg tablet PO SCH (09:16)
[2018-07-20] MEDS: atenolol 25mg tablet PO SCH (09:16)
[2018-07-20] MEDS: thiamine 100mg tablet PO SCH (09:16)
[2018-07-20] MEDS: gabapentin 300mg capsule PO SCH ×3 (09:16→20:37)
[2018-07-20] MEDS: diltiazem CD 120mg capsule (once-daily) PO SCH (09:16)
[2018-07-20] MEDS: furosemide 40mg tablet PO SCH (09:17)
[2018-07-20] MEDS: lisinopril 10 MG tablet PO SCH (09:17)
[2018-07-20] MEDS: predniSONE 20 mg tablet PO SCH (09:17)
[2018-07-20] MEDS: folic acid 1mg tablet PO SCH (09:17)
[2018-07-20] MEDS: heparin, porcine 5000 units/ml vial SQ SCH ×2 (09:19→20:36)
[2018-07-20] MEDS: levoTHYROXINE 25mcg tablet PO SCH (09:25)
[2018-07-20] MEDS: pantoprazole 40mg Tablet.DR PO SCH (09:26)
[2018-07-20 09:30] LABS: ALANINE AMINOTRANSFERASE 94 U/L (12-78); ALBUMIN 2.4 G/DL (3.4-5.0); ALBUMIN/GLOBULIN RATIO 0.6 (1.1-1.5); ALKALINE PHOSPHATASE 136 IU/L (46-116); ANION GAP 9 (8-16); ASPARTATE AMINO TRANSFERASE 87 U/L (10-37); BILIRUBIN,TOTAL 0.4 MG/DL (0.1-1.0); BLOOD UREA NITROGEN 45 MG/DL (7-18); BUN/CREATININE RATIO 34.9 (6.6-38.0); CALCIUM 7.9 MG/DL (8.5-10.1); CHLORIDE 103 MMOL/L (99-107); CREATININE 1.29 MG/DL (0.40-0.90); GLUCOSE 223 MG/DL (70-104); MAGNESIUM 1.5 MG/DL (1.5-2.4); PHOSPHORUS 3.5 MG/DL (2.3-4.5); POTASSIUM 4.1 MMOL/L (3.5-5.1); SODIUM 137 MMOL/L (135-145); TOTAL CARBON DIOXIDE 24.6 MMOL/L (24-32); TOTAL PROTEIN 6.2 G/DL (6.4-8.2); eGFR 41 ML/MIN
[2018-07-20 11:00] VITALS: BP 123/78
[2018-07-20] MEDS ORDERED: diltiazem 30mg tablet PO ONE (11:10)
[2018-07-20] MEDS: hydrOXYzine 25 MG tablet PO PRN ×2 (12:08→19:16)
[2018-07-20 15:00] VITALS: BP 113/61
[2018-07-20 18:00] VITALS: BP 123/68
--- NOTE | 2018-07-20 18:05 | NUR ---
Problems reprioritized. Patient report given, questions answered & plan of care reviewed with CHARY SULTANA.
--- NOTE | 2018-07-20 18:05 | NUR ---
Patient in room PCU 3014. I have received report from Eden DIEZ and had the opportunity to ask questions and assume patient care.
[2018-07-20] MEDS: insulin Lispro (HumaLOG) vial - multi-dose SQ SCH (19:15)
[2018-07-20] MEDS: traZODone 50mg tablet PO SCH (20:37)
[2018-07-20] MEDS: insulin glargine (Lantus) pen - multi-dose SQ SCH (21:12)
[2018-07-20 22:00] VITALS: BP 109/50
[2018-07-20] MEDS: vancomycin inj 1,250 MG in normal saline 250ml IV soln 250 ML IV SCH (23:12)
[2018-07-21] MEDS: hydrOXYzine 25 MG tablet PO PRN ×2 (01:27→09:04)
[2018-07-21 02:00] VITALS: BP 142/79
[2018-07-21] MEDS: ipratropium/albuterol 3ml nebule NEB SCH ×2 (03:00→09:48)
[2018-07-21 06:00] VITALS: BP 152/78
--- NOTE | 2018-07-21 06:13 | NUR ---
Problems reprioritized. Patient report given, questions answered & plan of care reviewed with Lily DIEZ.
[2018-07-21 06:16] LABS: ALANINE AMINOTRANSFERASE 98 U/L (12-78); ALBUMIN 2.5 G/DL (3.4-5.0); ALBUMIN/GLOBULIN RATIO 0.7 (1.1-1.5); ALKALINE PHOSPHATASE 126 IU/L (46-116); ANION GAP 10 (8-16); ASPARTATE AMINO TRANSFERASE 78 U/L (10-37); BILIRUBIN,TOTAL 0.4 MG/DL (0.1-1.0); BLOOD UREA NITROGEN 45 MG/DL (7-18); BUN/CREATININE RATIO 37.2 (6.6-38.0); CALCIUM 7.8 MG/DL (8.5-10.1); CHLORIDE 99 MMOL/L (99-107); CREATININE 1.21 MG/DL (0.40-0.90); GLUCOSE 142 MG/DL (70-104); MAGNESIUM 1.5 MG/DL (1.5-2.4); POTASSIUM 3.7 MMOL/L (3.5-5.1); SODIUM 135 MMOL/L (135-145); TOTAL CARBON DIOXIDE 25.6 MMOL/L (24-32); TOTAL PROTEIN 6.1 G/DL (6.4-8.2); eGFR 44 ML/MIN
[2018-07-21 06:20] LABS: BASOPHILS % (AUTO) 0.1 % (0-1); EOSINOPHILS # (AUTO) 0.1 X10'3 (0-0.9); EOSINOPHILS % (AUTO) 1.1 % (0-6); HEMATOCRIT 31.4 % (35.0-45.0); LYMPHOCYTES # (AUTO) 0.9 X10'3 (1.1-4.8); MEAN CORPUSCULAR HGB CONC 31.8 % (33.0-36.5); MEAN CORPUSCULAR VOLUME 85.1 FL (78-98); MEAN PLATELET VOLUME 8.9 FL (7.4-10.4); MONOCYTES # (AUTO) 0.3 X10'3 (0-0.9); NEUTROPHILS # (AUTO) 8.1 X10'3 (1.8-7.7); NEUTROPHILS % (AUTO) 85.8 % (42-75); PLATELET COUNT 302 X10'3 (140-440); RED BLOOD COUNT 3.69 X10'6 (4.20-5.60); RED CELL DISTRIBUTION WIDTH 17.4 % (11.5-14.5); WHITE BLOOD COUNT 9.4 X10'3 (4.5-11.0)
--- NOTE | 2018-07-21 06:30 | NUR ---
Patient in room PCU 3014. I have received report from Tona DIEZ and had the opportunity to ask questions and assume patient care. Patient resting comfortably in bed. Will continue to monitor.
[2018-07-21 07:44] LABS: ANISOCYTOSIS 1+; PLATELET ESTIMATE NORMAL; POLYCHROMASIA 1+; TOTAL CELLS COUNTED 100
[2018-07-21 07:45] LABS: HYPOCHROMASIA 1+
[2018-07-21] MEDS ORDERED: diltiazem CD 180mg cap (once-daily) PO SCH (08:00)
[2018-07-21] MEDS: K, MAG and/or Phos replacement - Verify level? MC SCH (08:00)
[2018-07-21] MEDS: naproxen 500mg tablet PO SCH (08:46)
[2018-07-21] MEDS: lisinopril 10 MG tablet PO SCH (08:47)
[2018-07-21] MEDS: lactobacillus rhamnosus 10,000 MMU CELLS/CAPSULE PO SCH (08:47)
[2018-07-21] MEDS: atenolol 25mg tablet PO SCH (08:47)
[2018-07-21] MEDS: predniSONE 20 mg tablet PO SCH (08:47)
[2018-07-21] MEDS: gabapentin 300mg capsule PO SCH ×2 (08:47→14:05)
[2018-07-21] MEDS: folic acid 1mg tablet PO SCH (08:48)
[2018-07-21] MEDS: pantoprazole 40mg Tablet.DR PO SCH (08:48)
[2018-07-21] MEDS: heparin, porcine 5000 units/ml vial SQ SCH (08:48)
[2018-07-21] MEDS: levoTHYROXINE 25mcg tablet PO SCH (08:48)
[2018-07-21] MEDS: furosemide 40mg tablet PO SCH (08:48)
[2018-07-21] MEDS: thiamine 100mg tablet PO SCH (08:48)
[2018-07-21] MEDS: insulin Lispro (HumaLOG) vial - multi-dose SQ SCH ×2 (08:55→14:02)
[2018-07-21] MEDS: LORazepam 0.5 MG tablet PO PRN ×2 (09:04→14:07)
[2018-07-21 11:00] VITALS: BP 133/74
[2018-07-21] MEDS ORDERED: DILT180C66 PO (14:53)
[2018-07-21] MEDS ORDERED: CLON-528 PO (15:21)
[2018-07-21] MEDS ORDERED: TRAM50TA2 PO (15:31)
--- NOTE | 2018-07-21 15:45 | NUR ---
Patient stable for discharger per MD orders. All discharge instructions reviewed with patient and all questions answered. Provided education for new prescription of diltiazem. New rx called into [facility] on [address]. All belongings sent with patient in private vehicle to home with daughter. Extended IV discontinued - cannula intact. Telemetry monitoring discontinued. Patient transported via wheelchair to private vehicle.
[2018-07-22] MEDS ORDERED: VANCOMYCIN LEVEL IV ONE (22:30)
== END 2018-07-21 15:45 | disposition home or self-care (01) | DRG 208 ==
LOC: ER 21:49 → ED HOLD 23:53 → CICU 2S 07-15 01:54 → PCU 3S 07-17 13:20
PROVIDERS: ADMIT Hospitalist; ATTEND Internal Medicine Critical Care Medicine
PROC: 0BH17EZ Insertion of Endotracheal Airway into Trachea, Via Natural or Artificial Opening (ICD-10-PCS; principal; 2018-07-14)
PROC: 5A1945Z Respiratory Ventilation, 24-96 Consecutive Hours (ICD-10-PCS; 2018-07-14)
PROC: 06HY33Z Insertion of Infusion Device into Lower Vein, Percutaneous Approach (ICD-10-PCS; 2018-07-14)
DX: J96.22 Acute and chronic respiratory failure with hypercapnia (principal); I50.33 Acute on chronic diastolic (congestive) heart failure; I13.0 Hypertensive heart and chronic kidney disease with heart failure and stage 1 through stage 4 chronic kidney disease, or unspecified chronic kidney disease; L02.416 Cutaneous abscess of left lower limb; L02.415 Cutaneous abscess of right lower limb; J96.21 Acute and chronic respiratory failure with hypoxia; E03.9 Hypothyroidism, unspecified; E78.00 Pure hypercholesterolemia, unspecified; F41.9 Anxiety disorder, unspecified; G89.29 Other chronic pain; J44.9 Chronic obstructive pulmonary disease, unspecified; K21.9 Gastro-esophageal reflux disease without esophagitis; N18.3 Chronic kidney disease, stage 3 (moderate); R56.9 Unspecified convulsions; F12.10 Cannabis abuse, uncomplicated; I48.0 Paroxysmal atrial fibrillation; B19.20 Unspecified viral hepatitis C without hepatic coma; F32.9 Major depressive disorder, single episode, unspecified; T38.0X5A Adverse effect of glucocorticoids and synthetic analogues, initial encounter; M19.90 Unspecified osteoarthritis, unspecified site; M54.2 Cervicalgia; M54.9 Dorsalgia, unspecified; R73.9 Hyperglycemia, unspecified; R74.0 Nonspecific elevation of levels of transaminase and lactic acid dehydrogenase [LDH]; Z59.0 Homelessness; Z90.49 Acquired absence of other specified parts of digestive tract; Z88.8 Allergy status to other drugs, medicaments and biological substances; Z79.899 Other long term (current) drug therapy; Z86.73 Personal history of transient ischemic attack (TIA), and cerebral infarction without residual deficits; Z82.49 Family history of ischemic heart disease and other diseases of the circulatory system; Z83.3 Family history of diabetes mellitus; Y92.89 Other specified places as the place of occurrence of the external cause
CPT/HCPCS: 31500; 36415; 36556; 36600; 70450; 71045; 80053; 80202; 80305; 81001; 82248; 82803; 82948; 83036; 83605; 83735; 83880; 84100; 84145; 84439; 84443; 84484; 85018; 85025; 85610; 85730; 87040; 87070; 87502; 87503; 92616; 93005; 93306; 94002; 94003; 94640; 94760; 96365; 96368; 96375; 97116; 97162; 97530; 99291; C9113; G0378; J0282; J1644; J1815; J1940; J1953; J1956; J2001; J2060; J2250; J2920; J2930; J3370; J3475; J3490; J7030; J7512; Q0177

== ENCOUNTER 2018-07-26 18:12 | Inpatient (IN) | payer MEDICARE, MEDICAID ==
[~2018-07-26] VITALS: Ht 160 cm; Wt 69.0 kg
[~2018-07-26 18:12] MED LIST changes: -ACET-3068 PO; -ATOR40TA72 PO; -CEPH500C5 PO; +DILT180C66 PO; -HYDR-3965 PO; -LIDOcaine 2% (20 mg/ml) 5ml cardiac syringe ONE; -ONDA4TAB6 PO; -PRED20TA PO; -SERT50TA10 PO; -SULF1TAB49 PO; +TRAM50TA2 PO; +TRAZ-218 PO; -rocuronium 10mg/ml inj IV ONE
[2018-07-26 20:25] LABS: BASOPHILS % (AUTO) 0.3 % (0-1); EOSINOPHILS % (AUTO) 0.3 % (0-6); HEMATOCRIT 37.1 % (35.0-45.0); HEMOGLOBIN 11.7 g/dl (12.0-16.0); LYMPHOCYTES # (AUTO) 0.7 X10'3 (1.1-4.8); LYMPHOCYTES % (AUTO) 9.2 % (21-51); MEAN CORPUSCULAR HEMOGLOBIN 27.2 PG (27.0-31.0); MEAN CORPUSCULAR HGB CONC 31.5 % (33.0-36.5); MEAN CORPUSCULAR VOLUME 86.2 FL (78-98); MEAN PLATELET VOLUME 9.3 FL (7.4-10.4); MONOCYTES # (AUTO) 0.5 X10'3 (0-0.9); MONOCYTES % (AUTO) 6.1 % (2-12); NEUTROPHILS # (AUTO) 6.5 X10'3 (1.8-7.7); NEUTROPHILS % (AUTO) 84.1 % (42-75); PLATELET COUNT 215 X10'3 (140-440); WHITE BLOOD COUNT 7.7 X10'3 (4.5-11.0)
[2018-07-26 20:41] LABS: ACETAMINOPHEN < 2.0 UG/ML (10-30); ALANINE AMINOTRANSFERASE 114 U/L (12-78); ALBUMIN 3.2 G/DL (3.4-5.0); ALBUMIN/GLOBULIN RATIO 0.7 (1.1-1.5); ALKALINE PHOSPHATASE 169 IU/L (46-116); ANION GAP 6 (8-16); ASPARTATE AMINO TRANSFERASE 124 U/L (10-37); BILIRUBIN,TOTAL 0.9 MG/DL (0.1-1.0); BLOOD UREA NITROGEN 53 MG/DL (7-18); BUN/CREATININE RATIO 25.5 (6.6-38.0); CALCIUM 10.2 MG/DL (8.5-10.1); CHLORIDE 96 MMOL/L (99-107); CREATININE 2.08 MG/DL (0.40-0.90); ETHANOL < 0.010 GM/DL (0.0-0.010); GLUCOSE 136 MG/DL (70-104); MAGNESIUM 2.1 MG/DL (1.5-2.4); POTASSIUM 4.9 MMOL/L (3.5-5.1); SODIUM 138 MMOL/L (135-145); TOTAL CARBON DIOXIDE 36.1 MMOL/L (24-32); TOTAL PROTEIN 7.8 G/DL (6.4-8.2); eGFR 24 ML/MIN
[2018-07-26 20:48] LABS: PARTIAL THROMBOPLASTIN TIME 23 SECONDS (22-32); PROTHROMBIN TIME 10.2 SECONDS (9.0-12.0)
[2018-07-26] MEDS ORDERED: normal saline 1000ML IV soln IVB ONE ×2 (20:55→21:25)
[2018-07-26 21:23] LABS: CLARITY,URINE CLEAR (Clear); COLOR,URINE YELLOW (Yellow); GLUCOSE, URINE NEGATIVE (Neg); KETONES,URINE NEGATIVE (Neg); LEUKOCYTE ESTERASE ,URINE NEGATIVE (Neg); NITRITES, URINE NEGATIVE (Neg); OCCULT BLOOD,URINE NEGATIVE (Neg); PH,URINE 5.5 (4.8-8.0); PROTEIN,URINE NEGATIVE (Neg); UROBILINOGEN,URINE 0.2 E.U/dL (0.2-1.0)
[2018-07-26 21:35] LABS: URINE AMPHETAMINE SCREEN POSITIVE (Neg); URINE BARBITUATE SCREEN NEGATIVE (Neg); URINE BENZODIAZEPINES SCREEN NEGATIVE (Neg); URINE CANNABINOID SCREEN POSITIVE (Neg); URINE COCAINE SCREEN NEGATIVE (Neg); URINE METHADONE SCREEN NEGATIVE (Neg); URINE OPIATE SCREEN POSITIVE (Neg); URINE PHENCYCLIDINE SCREEN NEGATIVE (Neg)
[2018-07-26 21:41] LABS: UA COLLECTION TYPE STRAIGHT CATH
[2018-07-26 22:51] LABS: ABG BASE EXCESS 7.5 mmol/L (-2.0-3.0); ABG OXYGEN SATURATION 78.5 % (95-98); ABG PH (T) 7.305 (7.350-7.450); ABG PO2 (T) 46.7 mmHg (83-108); ALLEN'S TEST Positive; FCOHb 1.6 % (0.5-1.5); FMetHb 0.1 % (0.3-1.12); FO2Hb 77.2 % (94-100); TOTAL HEMOGLOBIN 11.6 G/dl (12.0-16.0)
[2018-07-26] MEDS ORDERED: naloxone 0.4 mg/ml inj IV PRN ×2 (22:55→23:55)
--- NOTE | 2018-07-26 23:27 | NUR ---
IMMEDIATELY UPON ADMINISTERING NARCAN, PATIENT'S EYES OPEN WIDELY, AND SHE BECAME GROSSLY ALERT
[2018-07-27] MEDS ORDERED: mag hydrox/Alum hydrox/simeth 30ml oral suspension PO ONE (00:35)
[2018-07-27] MEDS ORDERED: acetaminophen 325mg tablet PO PRN (00:40)
[2018-07-27] MEDS ORDERED: ondansetron/PF 4mg/2ml inj IV PRN (00:40)
[2018-07-27] MEDS ORDERED: magnesium hydroxide 30ml (MOM) UD suspension PO PRN (00:40)
[2018-07-27] MEDS ORDERED: HYDR-3686 PO (00:47)
[2018-07-27] MEDS ORDERED: AMIO100T4 (00:47)
[2018-07-27] MEDS ORDERED: hydrOXYzine 25 MG tablet PO PRN (00:55)
[2018-07-27 02:25] LABS: ABG HCO3 34.9 mmol/L (22.0-26.0); ABG OXYGEN SATURATION 96.7 % (95-98); ABG PCO2 (T) 66.3 mmHg (32.0-45.0); ABG PH (T) 7.336 (7.350-7.450); ABG PO2 (T) 98.9 mmHg (83-108); ALLEN'S TEST Positive; FCOHb 1.1 % (0.5-1.5); FLOW 4 L/min; FO2Hb 95.6 % (94-100); PATIENT TEMPERATURE 36.4; TOTAL HEMOGLOBIN 11.1 G/dl (12.0-16.0)
[2018-07-27] MEDS: albuterol 2.5 MG/3 ML nebule NEB SCH ×2 (03:17→10:28)
[2018-07-27] MEDS: mag hydrox/Alum hydrox/simeth 30ml oral suspension PO PRN ×2 (03:55→18:53)
--- NOTE | 2018-07-27 03:56 | NUR ---
Patient's IV infiltrated, after multiple attempts by multiple nurses, IV has not been able to be established. Dr. Ruiz was notified, and states that IV can be held at this time.
--- NOTE | 2018-07-27 04:32 | NUR ---
Patient placed on hospital bed
[2018-07-27] MEDS: lisinopril 10 MG tablet PO SCH (08:06)
[2018-07-27] MEDS: folic acid 1mg tablet PO SCH (08:07)
[2018-07-27] MEDS: diltiazem CD 180mg cap (once-daily) PO SCH (08:07)
[2018-07-27] MEDS: levoTHYROXINE 25mcg tablet PO SCH (08:07)
[2018-07-27] MEDS: atenolol 25mg tablet PO SCH (08:07)
[2018-07-27] MEDS: pantoprazole 40mg Tablet.DR PO SCH (08:08)
[2018-07-27] MEDS: thiamine 100mg tablet PO SCH (08:11)
[2018-07-27] MEDS ORDERED: ipratropium/albuterol 3ml nebule NEB PRN (14:45)
[2018-07-27] MEDS: nicotine 7mg patch - 24hr TD SCH (15:37)
[2018-07-27] MEDS: predniSONE 20 mg tablet PO SCH (15:37)
[2018-07-27] MEDS: ipratropium/albuterol 3ml nebule NEB SCH ×3 (15:39→22:55)
[2018-07-27] MEDS ORDERED: traZODone 50mg tablet PO SCH (21:00)
--- NOTE | 2018-07-27 21:20 | NUR ---
assisting RN with pt care, pt is currently sitting on commode, resp even and unlabored, gave pt sada rehman,
--- NOTE | 2018-07-28 00:55 | NUR ---
CONTACTED DR RODRIGUEZ REGARDING PTS HR SPIKING TO 120-140 FROM 96 @ 9976. VERBAL FROM DR RODRIGUEZ TO GIVE 10MG CARDIZEM IV. REPEATED BACK ORDER TO DR RODRIGUEZ FOR CONFIMATION. RX ORDER PLACED.
[2018-07-28] MEDS: diltiazem 5mg/ml 5ml inj. IV ONE ×2 (01:00→01:21)
--- NOTE | 2018-07-28 01:17 | NUR ---
WENT IN TO GIVE IV CARDIZEM PER DR RODRIGUEZ TO FIND THAT PT HAD NO IV. INSERTED ULTRASOUND 20G IN LT UPPER ARM. PT HR DECREASED TO 74 AND BP 109/50. WILL NON ADMIN CARDIZEM.
[2018-07-28] MEDS: ipratropium/albuterol 3ml nebule NEB SCH ×2 (03:06→08:05)
[2018-07-28] MEDS: diltiazem CD 180mg cap (once-daily) PO SCH (09:14)
[2018-07-28] MEDS: pantoprazole 40mg Tablet.DR PO SCH (09:14)
[2018-07-28] MEDS: levoTHYROXINE 25mcg tablet PO SCH (09:14)
[2018-07-28] MEDS: predniSONE 20 mg tablet PO SCH (09:15)
[2018-07-28] MEDS: folic acid 1mg tablet PO SCH (09:15)
[2018-07-28] MEDS: lisinopril 10 MG tablet PO SCH (09:15)
[2018-07-28] MEDS: nicotine 7mg patch - 24hr TD SCH (09:16)
--- NOTE | 2018-07-28 09:21 | NUR ---
PT FEELING BETTER AFTER BREATHING TREATMENT. ADMIN MORNING MEDICATIONS ORDERED. PT REQUESTING TO GO HOME. HAS AN AP[facility]. PT IS STAYING WITH HER DAUGHTER RIGHT NOW
[2018-07-28 09:46] VITALS: BP 135/65
[2018-07-28] MEDS: atenolol 25mg tablet PO SCH (09:46)
--- NOTE | 2018-07-28 09:49 | NUR ---
PAGE DR SWEET AND INFORM HIM THAT PT IS REQUESTING TO GO HOME. HE WILL BE IN TO EVALUATED PT SOON.
[2018-07-28] MEDS: thiamine 100mg tablet PO SCH (09:57)
--- NOTE | 2018-07-28 10:00 | NUR ---
DR SWEET AT BEDSIDE TO [facility] PT FOR DC.
[2018-07-28] MEDS ORDERED: PRED20TA PO (10:06)
[2018-07-28] MEDS ORDERED: ALBU8.5H8 IH (10:06)
--- NOTE | 2018-07-28 10:21 | NUR ---
PT UP OUT OF BED W/O ASST TO GO TO THE BATHROOM. PT GIVEN BREAKFAST TRAY.
--- NOTE | 2018-07-29 09:17 | NUR ---
Pt d/c'd before meeting w/SS. SS referral closed
== END 2018-07-28 11:04 | disposition home or self-care (01) | DRG 682 ==
LOC: ER 18:13 → ED HOLD 07-27 00:37
PROVIDERS: ADMIT Hospitalist; ATTEND Family Medicine
DX: N17.9 Acute kidney failure, unspecified (principal); J96.21 Acute and chronic respiratory failure with hypoxia; J96.22 Acute and chronic respiratory failure with hypercapnia; E87.2 Acidosis; I50.32 Chronic diastolic (congestive) heart failure; I13.0 Hypertensive heart and chronic kidney disease with heart failure and stage 1 through stage 4 chronic kidney disease, or unspecified chronic kidney disease; E03.9 Hypothyroidism, unspecified; E86.0 Dehydration; E78.5 Hyperlipidemia, unspecified; E78.00 Pure hypercholesterolemia, unspecified; F41.9 Anxiety disorder, unspecified; F32.9 Major depressive disorder, single episode, unspecified; F17.200 Nicotine dependence, unspecified, uncomplicated; F15.90 Other stimulant use, unspecified, uncomplicated; F11.90 Opioid use, unspecified, uncomplicated; K21.9 Gastro-esophageal reflux disease without esophagitis; J44.9 Chronic obstructive pulmonary disease, unspecified; I48.91 Unspecified atrial fibrillation; N18.9 Chronic kidney disease, unspecified; B19.20 Unspecified viral hepatitis C without hepatic coma; M19.90 Unspecified osteoarthritis, unspecified site; F12.90 Cannabis use, unspecified, uncomplicated; R74.0 Nonspecific elevation of levels of transaminase and lactic acid dehydrogenase [LDH]; F19.10 Other psychoactive substance abuse, uncomplicated; I95.9 Hypotension, unspecified; Z83.3 Family history of diabetes mellitus; Z86.73 Personal history of transient ischemic attack (TIA), and cerebral infarction without residual deficits; Z86.14 Personal history of Methicillin resistant Staphylococcus aureus infection; Z88.8 Allergy status to other drugs, medicaments and biological substances; Z79.899 Other long term (current) drug therapy; Z90.49 Acquired absence of other specified parts of digestive tract; Z59.0 Homelessness; Z71.51 Drug abuse counseling and surveillance of drug abuser
CPT/HCPCS: 36415; 36600; 71045; 80053; 80305; 80320; 80329; 81003; 82803; 82948; 83735; 83874; 84484; 85018; 85025; 85610; 85730; 94640; 94760; 96361; 96374; 99291; G0378; J2310; J3490; J7512; Q0177

== ENCOUNTER 2018-08-20 20:15 | Emergency (ER) | payer MEDICARE, MEDICAID ==
[~2018-08-20] VITALS: Ht 160 cm; Wt 54.5 kg
[~2018-08-20 20:15] MED LIST changes: +ALBU8.5H8 IH; +AMIO100T4; -CEPH250C PO; -GABA-532 PO; +HYDR-3686 PO; +PRED20TA PO
[2018-08-20 20:18] VITALS: BP 162/80
[2018-08-20] MEDS ORDERED: SULF1TAB49 PO (21:19)
[2018-08-20] MEDS ORDERED: FLUC100T PO (21:19)
[2018-08-20] MEDS ORDERED: ONDA4TAB6 PO (21:19)
[2018-08-20] MEDS ORDERED: CEPH500C5 PO (21:19)
[2018-08-20] MEDS ORDERED: ondansetron 4mg rapidly disintigrating tab PO ONE (21:20)
== END 2018-08-20 21:42 | disposition home or self-care (01) ==
LOC: ER 20:16
DX: L03.115 Cellulitis of right lower limb (principal); I11.0 Hypertensive heart disease with heart failure; I50.9 Heart failure, unspecified; I48.91 Unspecified atrial fibrillation; E78.00 Pure hypercholesterolemia, unspecified; J44.9 Chronic obstructive pulmonary disease, unspecified; K21.9 Gastro-esophageal reflux disease without esophagitis; E03.9 Hypothyroidism, unspecified; M19.90 Unspecified osteoarthritis, unspecified site; F12.90 Cannabis use, unspecified, uncomplicated; F11.90 Opioid use, unspecified, uncomplicated; F15.90 Other stimulant use, unspecified, uncomplicated; Z90.49 Acquired absence of other specified parts of digestive tract; Z86.73 Personal history of transient ischemic attack (TIA), and cerebral infarction without residual deficits; Z59.0 Homelessness; Z88.1 Allergy status to other antibiotic agents; Z88.8 Allergy status to other drugs, medicaments and biological substances
CPT/HCPCS: 99283

== ENCOUNTER 2018-09-02 20:19 | Emergency (ER) | payer MEDICARE, MEDICAID ==
[~2018-09-02] VITALS: Ht 160 cm; Wt 52.0 kg
[~2018-09-02 20:19] MED LIST changes: +ONDA4TAB6 PO; -PRED20TA PO; -TRAM50TA2 PO
--- NOTE | 2018-09-02 21:06 | NUR ---
Pt states that she has 2 kids. Boy lives in [place], girl lives here. States she got told to leave where she used to live 6 mo ago because she 'smoked in her room' then she lived at the [facility] but was told to leave r/t "pint of Vodka" in her possession. She states she has housing come the first of the month. She doesn't get along with her daughter because her daughter plays "the victim card" Pt admitted to MD that she uses heroin. Pt states she is here to talk to someone. She will not say that she is suicidal. She states she is NOT homicidal. She states that she is just having anxiety issues. She has tried meds in the past for depression/anxiety but decided it was too difficult to continue or to find rides to appointments. Appears to have poor insight and judgement skills.
[2018-09-02] MEDS ORDERED: levoTHYROXINE 75mcg tablet PO ONE (21:25)
[2018-09-02 21:26] LABS: HEMOGLOBIN 11.4 g/dl (12.0-16.0)
[2018-09-02 21:37] LABS: ALANINE AMINOTRANSFERASE 66 U/L (12-78); ALBUMIN/GLOBULIN RATIO 0.6 (1.1-1.5); ALKALINE PHOSPHATASE 221 IU/L (46-116); ANION GAP 10 (8-16); ASPARTATE AMINO TRANSFERASE 106 U/L (10-37); BILIRUBIN,TOTAL 0.8 MG/DL (0.1-1.0); BLOOD UREA NITROGEN 25 MG/DL (7-18); CALCIUM 8.3 MG/DL (8.5-10.1); CHLORIDE 98 MMOL/L (99-107); CREATININE 1.56 MG/DL (0.40-0.90); GLUCOSE 124 MG/DL (70-104); POTASSIUM 4.6 MMOL/L (3.5-5.1); SODIUM 134 MMOL/L (135-145); TOTAL CARBON DIOXIDE 25.9 MMOL/L (24-32); TOTAL PROTEIN 7.7 G/DL (6.4-8.2); eGFR 33 ML/MIN
[2018-09-02 21:40] LABS: BASOPHILS # (AUTO) 0.1 X10'3 (0-0.2); BASOPHILS % (AUTO) 0.8 % (0-1); EOSINOPHILS % (AUTO) 0.2 % (0-6); HEMATOCRIT 35.7 % (35.0-45.0); LYMPHOCYTES % (AUTO) 21.1 % (21-51); MEAN CORPUSCULAR HEMOGLOBIN 27.3 PG (27.0-31.0); MEAN CORPUSCULAR VOLUME 85.4 FL (78-98); MEAN PLATELET VOLUME 8.6 FL (7.4-10.4); MONOCYTES # (AUTO) 0.5 X10'3 (0-0.9); MONOCYTES % (AUTO) 5.4 % (2-12); NEUTROPHILS # (AUTO) 6.9 X10'3 (1.8-7.7); NEUTROPHILS % (AUTO) 72.5 % (42-75); PLATELET COUNT 259 X10'3 (140-440); RED BLOOD COUNT 4.18 X10'6 (4.20-5.60); RED CELL DISTRIBUTION WIDTH 18.6 % (11.5-14.5); WHITE BLOOD COUNT 9.5 X10'3 (4.5-11.0)
--- NOTE | 2018-09-02 21:42 | NUR ---
Went to adm levothyroxine, but the pt states she did take it already today
[2018-09-02 21:50] LABS: ETHANOL < 0.010 GM/DL (0.0-0.010)
--- NOTE | 2018-09-02 22:06 | NUR ---
Pt has paper and is writing, like journaling.
[2018-09-02 22:22] LABS: CLARITY,URINE CLEAR (Clear); COLOR,URINE YELLOW (Yellow); GLUCOSE, URINE NEGATIVE (Neg); KETONES,URINE TRACE mg/dl (Neg); LEUKOCYTE ESTERASE ,URINE SMALL (Neg); NITRITES, URINE NEGATIVE (Neg); OCCULT BLOOD,URINE NEGATIVE (Neg); PROTEIN,URINE 30 mg/dl (Neg)
--- NOTE | 2018-09-02 22:24 | NUR ---
Notified MD of the TSH level. Adm the levo p talked to the pt.
[2018-09-02 22:25] LABS: UA COLLECTION TYPE CLN CATCH MIDSTREAM
[2018-09-02 22:29] LABS: BACTERIA,URINE FEW /HPF (Neg); RBC,URINE NONE SEEN /HPF (0-2); SQUAMOUS EPITHELIAL CELL,UR MANY /LPF (FEW)
--- NOTE | 2018-09-02 22:31 | NUR ---
camera being placed in the room
[2018-09-02 22:38] LABS: URINE AMPHETAMINE SCREEN POSITIVE (Neg); URINE BARBITUATE SCREEN NEGATIVE (Neg); URINE BENZODIAZEPINES SCREEN NEGATIVE (Neg); URINE CANNABINOID SCREEN POSITIVE (Neg); URINE COCAINE SCREEN NEGATIVE (Neg); URINE METHADONE SCREEN NEGATIVE (Neg); URINE OPIATE SCREEN POSITIVE (Neg); URINE PHENCYCLIDINE SCREEN NEGATIVE (Neg)
--- NOTE | 2018-09-02 23:00 | NUR ---
Telepsych called for an SBAR
--- NOTE | 2018-09-02 23:02 | NUR ---
talking to the pt now on telepsych
--- NOTE | 2018-09-02 23:36 | NUR ---
Psychiatric recommending 5150 for SI/gravely dissabled. He is going to fax a report in about 15 minutes he says.
--- NOTE | 2018-09-03 00:05 | NUR ---
pt arrived on unit with c/o depression. states, im not getting along with my daughter. daughter accused pt of getting her son mrsa. pt was put in green scrubs and cooperative with care.
[2018-09-03] MEDS ORDERED: DOXYCYCLINE 100MG CAPSULE PO STA (00:09)
--- NOTE | 2018-09-03 01:46 | NUR ---
TELE PSYCH REPORT DISCUSSED WITH DR WISE, NEW ORDERS RECEIVED.
--- NOTE | 2018-09-03 01:57 | NUR ---
UP TO BR, IMMEDIATLY BACK TO BED.
[2018-09-03] MEDS ORDERED: ATEN-169 PO (04:43)
[2018-09-03] MEDS ORDERED: LISI-600 PO (04:44)
[2018-09-03] MEDS ORDERED: OMEP20CA10 PO (04:44)
[2018-09-03] MEDS ORDERED: FOLI1TAB16 PO (04:46)
[2018-09-03] MEDS ORDERED: FURO-149 PO (04:46)
[2018-09-03] MEDS ORDERED: THIA100T66 PO (04:47)
[2018-09-03] MEDS ORDERED: ALBU8.5H8 INH (04:47)
[2018-09-03] MEDS ORDERED: albuterol 2.5 MG/3 ML nebule NEB PRN (05:55)
[2018-09-03] MEDS ORDERED: levoTHYROXINE 75mcg tablet PO SCH (07:00)
[2018-09-03] MEDS: pantoprazole 40mg Tablet.DR PO SCH (07:40)
[2018-09-03] MEDS: levoTHYROXINE 25mcg tablet PO SCH (07:40)
[2018-09-03] MEDS: folic acid 1mg tablet PO SCH (07:41)
[2018-09-03] MEDS: atenolol 50mg tablet PO SCH ×2 (07:41→19:21)
[2018-09-03] MEDS: furosemide 40mg tablet PO SCH (07:41)
[2018-09-03] MEDS: lisinopril 20mg tablet PO SCH (07:42)
[2018-09-03] MEDS: thiamine 100mg tablet PO SCH (07:42)
[2018-09-03] MEDS ORDERED: DOXYCYCLINE 100MG CAPSULE PO SCH (08:00)
[2018-09-03] MEDS: DOXYCYCLINE 100MG CAPSULE PO SCH ×2 (09:00→20:16)
--- NOTE | 2018-09-03 11:18 | NUR ---
pt is sleeping, on right side, no s/s of distress observed
[2018-09-03] MEDS ORDERED: famotidine 20mg tablet PO ONE ×2 (12:35→20:00)
--- NOTE | 2018-09-03 12:36 | NUR ---
Spoke with pt who c/o "heartburn" and upset stomach. Prilosec given to pt earlier today. Spoke with Dr. Otero who ordered Pepcid 20mg po now. Pt also c/o painful cracked skin on her hands. Pt reports she has "arthritis" and has been out in the extreme weather[place]. Per Dr. Branden MD ordered Eucerin cream on her hands daily to soften and provide relief of pain to hands.
--- NOTE | 2018-09-03 15:15 | NUR ---
1515 Observation of pt up and down out of bed for the past 10 minutes. Pt is sitting up then lying back down, and appears extremely anxious at this time. Pt crying at this time. Informed pt that I would speak to the MD and ask for a medication to help her with her current state of anxiety. Spoke with Dr. Otero who ordered Ativan 2mg po now. Administered at 1520. Pt resting comfortably at 1600.
[2018-09-03] MEDS ORDERED: LORazepam 1 MG tablet PO ONE (15:20)
--- NOTE | 2018-09-03 15:31 | NUR ---
pt up to the bathroom, gave ativan when she returned no s/s of distress
[2018-09-03] MEDS ORDERED: sertraline 50mg tablet PO ONE (19:00)
[2018-09-03] MEDS: lactobacillus rhamnosus 10,000 MMU CELLS/CAPSULE PO SCH (19:20)
[2018-09-03] MEDS: emollient combination-Eucerin 250 ML LOTION TP SCH (19:21)
--- NOTE | 2018-09-03 19:36 | NUR ---
pt ate all of her dinner. is resting quietly now, rr unlabored.
[2018-09-03] MEDS: LORazepam 1 MG tablet PO PRN (20:15)
[2018-09-03] MEDS ORDERED: traZODone 50mg tablet PO SCH (21:00)
--- NOTE | 2018-09-03 21:10 | NUR ---
pt is sleeping on left side. rr normal, unlabored.
--- NOTE | 2018-09-03 21:38 | NUR ---
pt is up out of bed, had some dry heaves in bathroom, then back to bed.
--- NOTE | 2018-09-04 00:17 | NUR ---
pt says she needs her inhaler, RT notified
--- NOTE | 2018-09-04 00:27 | NUR ---
RT came and pt refused
[2018-09-04] MEDS: traZODone 50mg tablet PO PRN ×2 (00:44→20:36)
--- NOTE | 2018-09-04 00:44 | NUR ---
Pt was up to the BR, asked for coffee, she was denied, re oriented to time of day then she asked for ativan, but too early, settled for sleeping med.
--- NOTE | 2018-09-04 02:10 | NUR ---
pt just got up and went to the br again.
[2018-09-04] MEDS: LORazepam 1 MG tablet PO PRN ×3 (04:06→16:45)
--- NOTE | 2018-09-04 04:07 | NUR ---
pt up to the BR again, she states she is just nervous and that she doesnt have a UTI Back to bed, asked for an ativan, so given.
--- NOTE | 2018-09-04 06:46 | NUR ---
patient sleeping on R side, respirations even and unlabored, no signs of distress noted, will continue to monitor.
[2018-09-04] MEDS: folic acid 1mg tablet PO SCH (07:36)
[2018-09-04] MEDS: furosemide 40mg tablet PO SCH (07:36)
[2018-09-04] MEDS: atenolol 50mg tablet PO SCH ×2 (07:36→20:36)
[2018-09-04] MEDS: thiamine 100mg tablet PO SCH (07:36)
[2018-09-04] MEDS: levoTHYROXINE 25mcg tablet PO SCH (07:37)
[2018-09-04] MEDS: lactobacillus rhamnosus 10,000 MMU CELLS/CAPSULE PO SCH ×2 (07:37→20:36)
[2018-09-04] MEDS: lisinopril 20mg tablet PO SCH (07:37)
[2018-09-04] MEDS: pantoprazole 40mg Tablet.DR PO SCH (07:37)
[2018-09-04] MEDS: emollient combination-Eucerin 250 ML LOTION TP SCH (07:38)
[2018-09-04] MEDS: DOXYCYCLINE 100MG CAPSULE PO SCH ×2 (07:48→20:35)
--- NOTE | 2018-09-04 07:49 | NUR ---
patient cooperative and calm, medications given, alert and oriented, no signs of distress.
--- NOTE | 2018-09-04 09:00 | NUR ---
patient sleeping, respirations even and unlabored. will continue to monitor.
--- NOTE | 2018-09-04 10:30 | NUR ---
patient reporting she is anxious, ativan given, no signs of distress, pt remains calm. will continue to monitor.
--- NOTE | 2018-09-04 11:45 | NUR ---
patient sleeping on L side, respirations even and unlabored, no signs of distress.
--- NOTE | 2018-09-04 13:00 | NUR ---
Patient sleeping, respirations even and unlabored. no signs of distress noted.
[2018-09-04] MEDS ORDERED: acetaminophen 325mg tablet PO ONE (13:10)
--- NOTE | 2018-09-04 13:15 | NUR ---
patient complaining of neck ache pains, received order from physician for one time dose of Tyelonol.
--- NOTE | 2018-09-04 14:45 | NUR ---
Patient sleeping on R side, respirations even and unlabored. no signs of distress.
--- NOTE | 2018-09-04 15:53 | NUR ---
Patient requesting muscle relaxor medication for her muscle spasms, called physician and MD states he is not going to perscribe anything other than Tylenol at this time. communicated to patient that she is allowed Tylenol, if she needs it.
--- NOTE | 2018-09-04 16:45 | NUR ---
patient received ativan and bedbath, patient back in bed, resting comfortably no apparent signs of distress noted.
--- NOTE | 2018-09-04 17:45 | NUR ---
patient sleeping on left side, respirations even and unlabored, no distress noted.
[2018-09-05] MEDS ORDERED: acetaminophen 325mg tablet PO ONE (00:45)
[2018-09-05] MEDS: LORazepam 1 MG tablet PO PRN ×4 (00:57→20:03)
--- NOTE | 2018-09-05 06:15 | NUR ---
PT PACING AROUND UPON MY ARRIVAL TO THE UNIT SHE WAS GOING BACK AND FOURTH TO THE BATHROOM AND SHE VOMITED X1 FROM WHAT I COULD HEAR, WILL CONTINUE TO MONITOR
[2018-09-05] MEDS: pantoprazole 40mg Tablet.DR PO SCH (07:29)
[2018-09-05] MEDS: lactobacillus rhamnosus 10,000 MMU CELLS/CAPSULE PO SCH ×2 (07:29→20:02)
[2018-09-05] MEDS: furosemide 40mg tablet PO SCH (07:29)
[2018-09-05] MEDS: thiamine 100mg tablet PO SCH (07:29)
[2018-09-05] MEDS: levoTHYROXINE 25mcg tablet PO SCH (07:29)
[2018-09-05] MEDS: DOXYCYCLINE 100MG CAPSULE PO SCH ×2 (07:29→20:00)
[2018-09-05] MEDS: lisinopril 20mg tablet PO SCH (07:30)
[2018-09-05] MEDS: folic acid 1mg tablet PO SCH (07:30)
[2018-09-05] MEDS: atenolol 50mg tablet PO SCH ×2 (07:30→20:02)
[2018-09-05] MEDS: emollient combination-Eucerin 250 ML LOTION TP SCH (07:31)
--- NOTE | 2018-09-05 08:30 | NUR ---
WENT AND INFORMED MD LEAL THAT PT IS ANXIATAL AND SHE ALREADY RECIEVED HER MORNING DOSE OF ATIVAN SHE IS REQUESTING MORE MEDS. STATED HE WOULD COME WHEN HE HAD TIME.
--- NOTE | 2018-09-05 12:31 | NUR ---
pt in her bed yelling about her anxiety medication, again the pt has been educated on her PRN status of the med being q6h , will continue to monitor
--- NOTE | 2018-09-05 13:34 | NUR ---
pt medicated with prn ativan
[2018-09-05] MEDS ORDERED: loperamide 2mg capsule PO ONE (14:25)
--- NOTE | 2018-09-05 14:30 | NUR ---
talked with MD suero ordered for imodium for pts diarrhea, administered per order
--- NOTE | 2018-09-05 16:56 | NUR ---
pt just talked with md suero , pt not pleased that he wont increase her ativan
--- NOTE | 2018-09-05 18:05 | NUR ---
Report given to CHARY Lira
--- NOTE | 2018-09-05 18:24 | NUR ---
Assumed care of pt. Pt sitting up in bed eating dinner. No complaints at this time will cont to monitor.
[2018-09-05] MEDS: traZODone 50mg tablet PO PRN (20:02)
--- NOTE | 2018-09-05 20:46 | NUR ---
Pt sleeping in bed no apparent distress. Noc meds given without issues. Will cont to monitor
--- NOTE | 2018-09-06 00:01 | NUR ---
Pt restless, up and down to the bathroom, talking to herself and cursing. Provided reassurance. Will cont to monitor
--- NOTE | 2018-09-06 02:19 | NUR ---
Pt sleeping on distress noted. Will cont to monitor.
[2018-09-06] MEDS: lactobacillus rhamnosus 10,000 MMU CELLS/CAPSULE PO SCH ×2 (07:44→20:21)
[2018-09-06] MEDS: thiamine 100mg tablet PO SCH (07:44)
[2018-09-06] MEDS: LORazepam 1 MG tablet PO PRN ×2 (07:44→15:16)
[2018-09-06] MEDS: DOXYCYCLINE 100MG CAPSULE PO SCH ×2 (07:44→20:22)
[2018-09-06] MEDS: pantoprazole 40mg Tablet.DR PO SCH (07:45)
[2018-09-06] MEDS: folic acid 1mg tablet PO SCH (07:45)
[2018-09-06] MEDS: lisinopril 20mg tablet PO SCH (07:45)
[2018-09-06] MEDS: levoTHYROXINE 25mcg tablet PO SCH (07:45)
[2018-09-06] MEDS: furosemide 40mg tablet PO SCH (07:45)
[2018-09-06] MEDS: emollient combination-Eucerin 250 ML LOTION TP SCH (07:46)
[2018-09-06] MEDS: atenolol 50mg tablet PO SCH ×2 (07:46→20:22)
--- NOTE | 2018-09-06 09:07 | NUR ---
SPOKE WITH JANNA FROM [facility]. STATED 4647 WILL BE RENEWED TODAY. VIJAY EMAILED STATING PT IS TO MEDICALL UNSTABLE TO BE ACCEPTED. RELAYED MESSAGE TO DR LEAL. STATED PT IS COMPLETELY MEDICALLY CLEARED AND ABLE TO BE TRANSFERRED. WANTS TO KNOW IF PTW WILL ACCEPT. JANNA STATED WILL CALL PTW TO SEE IF ANY OPENINGS TODAY. WILL CONTINUE TO MONITOR PT. CURRENTLY SLEEPING ON RIGHT SIDE NO DISTRESS NOTED.
[2018-09-06] MEDS ORDERED: sertraline 50mg tablet PO ONE (09:35)
--- NOTE | 2018-09-06 10:11 | NUR ---
PT AMBULATED TO BATHROOM WITH STEADY GAIT. NO DISTRESS NOTED.
[2018-09-06] MEDS ORDERED: ondansetron 4mg rapidly disintigrating tab PO ONE (11:10)
[2018-09-06] MEDS ORDERED: acetaminophen 325mg tablet PO ONE (11:10)
--- NOTE | 2018-09-06 11:31 | NUR ---
PT SLEEPING ON RIGHT SIDE. NORMAL RR. NO DISTRESS NOTED. WILL CONTINUE TO MONITOR.
[2018-09-06] MEDS: proCHLORperazine 10mg tablet PO PRN (15:26)
--- NOTE | 2018-09-06 18:22 | NUR ---
Assumed care. Pt sitting up in bed eating dinner. Pt states she is having alot of anxiety. Provided reassurance and will cont to monitor.
[2018-09-06] MEDS: traZODone 50mg tablet PO PRN (20:22)
--- NOTE | 2018-09-06 21:01 | NUR ---
Pt sleeping comfortably. Will cont to monitor
--- NOTE | 2018-09-07 01:15 | NUR ---
Pt sleeping. Will cont to monitor
--- NOTE | 2018-09-07 03:06 | NUR ---
Pt sleeping will cont to monitor
[2018-09-07] MEDS: proCHLORperazine 10mg tablet PO PRN ×2 (04:04→23:06)
[2018-09-07] MEDS: LORazepam 1 MG tablet PO PRN ×3 (04:04→17:52)
--- NOTE | 2018-09-07 06:43 | NUR ---
pt is sitting up in bed. asking for coffee. States her stomach hurts. Asking for pepcid. Will review orders and contact MD if needed
[2018-09-07] MEDS ORDERED: sertraline 50mg tablet PO ONE (08:00)
[2018-09-07] MEDS: emollient combination-Eucerin 250 ML LOTION TP SCH (08:00)
[2018-09-07] MEDS ORDERED: acetaminophen 325mg tablet PO PRN (08:00)
[2018-09-07] MEDS: furosemide 40mg tablet PO SCH (08:00)
[2018-09-07] MEDS ORDERED: mag hydrox/Alum hydrox/simeth 30ml oral suspension PO PRN (08:00)
[2018-09-07] MEDS: levoTHYROXINE 25mcg tablet PO SCH (08:29)
[2018-09-07] MEDS: folic acid 1mg tablet PO SCH (08:30)
[2018-09-07] MEDS: pantoprazole 40mg Tablet.DR PO SCH (08:30)
[2018-09-07] MEDS: lactobacillus rhamnosus 10,000 MMU CELLS/CAPSULE PO SCH ×2 (08:30→20:05)
[2018-09-07] MEDS: atenolol 50mg tablet PO SCH ×2 (08:30→20:05)
[2018-09-07] MEDS: DOXYCYCLINE 100MG CAPSULE PO SCH ×2 (08:31→20:03)
[2018-09-07] MEDS: lisinopril 20mg tablet PO SCH (08:31)
[2018-09-07] MEDS: thiamine 100mg tablet PO SCH (08:31)
[2018-09-07] MEDS: potassium Cl 20 mEq SR tablet PO SCH (08:50)
--- NOTE | 2018-09-07 09:08 | NUR ---
spoke to the pt at length re how she is feeling today. She said that she no longer has feelings of suicide and is looking forward to the future. Will have an apt. on the first of next month. States she feels that she needs counceling to learn how to deal with stressors in her life. States that her "friends" are all addicts and not much help to her; her daughter is "done" with her but she again states that she has hope for the future
[2018-09-07 12:36] LABS: ALBUMIN 2.5 G/DL (3.4-5.0); ANION GAP 8 (8-16); BLOOD UREA NITROGEN 37 MG/DL (7-18); BUN/CREATININE RATIO 27.6 (6.6-38.0); CALCIUM 8.4 MG/DL (8.5-10.1); CHLORIDE 96 MMOL/L (99-107); CREATININE 1.34 MG/DL (0.40-0.90); POTASSIUM 3.9 MMOL/L (3.5-5.1); SODIUM 131 MMOL/L (135-145); TOTAL CARBON DIOXIDE 27.3 MMOL/L (24-32); eGFR 39 ML/MIN
[2018-09-07 12:37] LABS: GLUCOSE 121 MG/DL (70-104)
--- NOTE | 2018-09-07 18:14 | NUR ---
NURSE NOTE: Pt administered Ativan 1 mg tab as per order. Pt resting comfortably in bed at this time.
[2018-09-07] MEDS: traZODone 50mg tablet PO PRN (20:05)
[2018-09-07] MEDS ORDERED: traZODone 50mg tablet PO ONE (22:30)
--- NOTE | 2018-09-07 23:30 | NUR ---
PT stated she was having trouble sleeping. External med rec indicates HS Trazadone 150 mg at HS. MD agreed to administration of an additional 50 mg Trazadone for a total of 100mg. Md does not agree with 150 mg Trazadon HS.
--- NOTE | 2018-09-08 01:17 | NUR ---
Pt more relaxed, but making frequent trips to the bathroom r/t UTI. Pt appears to be resting between bathroom breaks.
--- NOTE | 2018-09-08 03:20 | NUR ---
Pt more relaxed, but making frequent trips to the bathroom r/t UTI. Pt appears to be resting between bathroom breaks.
--- NOTE | 2018-09-08 06:30 | NUR ---
Received report from CHARY Mccray. Patient had a rough night going back and forth to the bathroom. Trying to get some rest now.
[2018-09-08] MEDS: levoTHYROXINE 25mcg tablet PO SCH (07:53)
[2018-09-08] MEDS: pantoprazole 40mg Tablet.DR PO SCH (07:54)
[2018-09-08] MEDS: potassium Cl 20 mEq SR tablet PO SCH (07:54)
[2018-09-08] MEDS: folic acid 1mg tablet PO SCH (07:54)
[2018-09-08] MEDS: lactobacillus rhamnosus 10,000 MMU CELLS/CAPSULE PO SCH ×2 (07:54→19:46)
[2018-09-08] MEDS: atenolol 50mg tablet PO SCH ×2 (07:55→19:48)
[2018-09-08] MEDS: thiamine 100mg tablet PO SCH (07:55)
[2018-09-08] MEDS: furosemide 40mg tablet PO SCH (07:55)
[2018-09-08] MEDS: DOXYCYCLINE 100MG CAPSULE PO SCH ×2 (07:56→19:46)
[2018-09-08] MEDS: lisinopril 20mg tablet PO SCH (07:56)
[2018-09-08] MEDS: LORazepam 1 MG tablet PO PRN ×3 (07:57→21:07)
[2018-09-08] MEDS: emollient combination-Eucerin 250 ML LOTION TP SCH (07:58)
[2018-09-08 17:45] VITALS: BP_DIAS 67
--- NOTE | 2018-09-08 18:34 | NUR ---
Patient report given to CHARY Byrd.
[2018-09-08] MEDS ORDERED: diphenhydrAMINE 25mg capsule PO ONE (19:40)
[2018-09-08 19:48] VITALS: BP_SYST 141
[2018-09-08] MEDS: traZODone 50mg tablet PO PRN (19:49)
== END 2018-09-08 22:42 ==
LOC: ER 20:20
DX: F32.9 Major depressive disorder, single episode, unspecified (principal); R45.851 Suicidal ideations; F15.10 Other stimulant abuse, uncomplicated; E03.9 Hypothyroidism, unspecified; N39.0 Urinary tract infection, site not specified; F12.90 Cannabis use, unspecified, uncomplicated; F11.90 Opioid use, unspecified, uncomplicated; I48.91 Unspecified atrial fibrillation; Z86.73 Personal history of transient ischemic attack (TIA), and cerebral infarction without residual deficits; E78.00 Pure hypercholesterolemia, unspecified; J44.9 Chronic obstructive pulmonary disease, unspecified; K21.9 Gastro-esophageal reflux disease without esophagitis; M19.90 Unspecified osteoarthritis, unspecified site; Z86.14 Personal history of Methicillin resistant Staphylococcus aureus infection; I11.0 Hypertensive heart disease with heart failure; I50.9 Heart failure, unspecified; Z88.8 Allergy status to other drugs, medicaments and biological substances; Z79.899 Other long term (current) drug therapy; Z59.0 Homelessness
CPT/HCPCS: 36415; 80048; 80053; 80305; 80320; 81001; 84443; 85025; 99285; Q0163

== ENCOUNTER 2018-09-08 20:04 | Inpatient (IN) | payer MEDICARE, MEDICAID | END 2018-09-19 13:30 | disposition still patient (30) | LOC: ADULT MH 20:04 | DX: R45.851 Suicidal ideations (principal); F32.9 Major depressive disorder, single episode, unspecified ==

== ENCOUNTER 2018-10-12 12:25 | Emergency (ER) | payer MEDICARE, MEDICAID ==
[~2018-10-12] VITALS: Ht 160 cm; Wt 57.0 kg
[~2018-10-12 12:25] MED LIST changes: -ALBU6.7H INH; -ALBU8.5H8 IH; +ALBU8.5H8 INH; -AMIO100T4; +ASPI-41 PO; +ATEN-168 PO; -ATEN25TA PO; +BUPR1FIL5 SL; -CLON-528 PO; -DILT180C66 PO; +DULO30CA51 PO; +DULO60CA45 PO; -FOLI1TAB16 PO; -FURO-149 PO; +FURO40TA4 PO; +GABA600T13 PO; -HYDR-3686 PO; -LEVO50TA8 PO; +LEVO75TA7 PO; +LISI-600 PO; -LISI10TA4 PO; -NAPR-996 PO; -ONDA4TAB6 PO; -THI100T PO; -TRAZ-218 PO; +TRAZ-219 PO
[2018-10-12] MEDS ORDERED: dexamethasone sod phosphate 10mg/ml inj IM STA (13:31)
[2018-10-12 13:57] VITALS: BP 152/96
[2018-10-12] MEDS ORDERED: LIDOcaine 5% patch TP ONE (14:20)
== END 2018-10-12 14:00 | disposition home or self-care (01) ==
LOC: ER 12:26
DX: M54.5 Low back pain (principal); I11.0 Hypertensive heart disease with heart failure; I50.9 Heart failure, unspecified; I48.91 Unspecified atrial fibrillation; J44.9 Chronic obstructive pulmonary disease, unspecified; K21.9 Gastro-esophageal reflux disease without esophagitis; E03.9 Hypothyroidism, unspecified; M19.90 Unspecified osteoarthritis, unspecified site; F15.90 Other stimulant use, unspecified, uncomplicated; F12.90 Cannabis use, unspecified, uncomplicated; F11.90 Opioid use, unspecified, uncomplicated; Z90.49 Acquired absence of other specified parts of digestive tract; Z59.0 Homelessness; Z79.82 Long term (current) use of aspirin; Z88.1 Allergy status to other antibiotic agents; Z88.8 Allergy status to other drugs, medicaments and biological substances
CPT/HCPCS: 96372; 99284; J1100

== ENCOUNTER 2018-10-19 16:05 | Emergency (ER) | payer MEDICARE, MEDICAID ==
[~2018-10-19] VITALS: Ht 160 cm; Wt 62.0 kg
[2018-10-19 16:18] VITALS: BP 156/95
[2018-10-19] MEDS ORDERED: ketorolac tromethamine 15mg/ml inj. IM ONE (16:55)
== END 2018-10-19 17:11 | disposition home or self-care (01) ==
LOC: ER 16:05
DX: M54.5 Low back pain (principal); I48.91 Unspecified atrial fibrillation; I11.0 Hypertensive heart disease with heart failure; I50.9 Heart failure, unspecified; J44.9 Chronic obstructive pulmonary disease, unspecified; K21.9 Gastro-esophageal reflux disease without esophagitis; M19.90 Unspecified osteoarthritis, unspecified site; F41.9 Anxiety disorder, unspecified; F32.9 Major depressive disorder, single episode, unspecified; F12.10 Cannabis abuse, uncomplicated; F11.10 Opioid abuse, uncomplicated; Z86.19 Personal history of other infectious and parasitic diseases; Z90.49 Acquired absence of other specified parts of digestive tract; Z59.0 Homelessness; Z88.5 Allergy status to narcotic agent; Z88.8 Allergy status to other drugs, medicaments and biological substances; Z79.82 Long term (current) use of aspirin; Z79.899 Other long term (current) drug therapy; Z86.73 Personal history of transient ischemic attack (TIA), and cerebral infarction without residual deficits
CPT/HCPCS: 96372; 99283; J1885

== ENCOUNTER 2018-11-01 13:36 | Emergency (ER) | payer MEDICARE, MEDICAID ==
[~2018-11-01] VITALS: Ht 160 cm; Wt 60.5 kg
[2018-11-01 13:42] VITALS: BP 189/107
[2018-11-01] MEDS ORDERED: ketorolac trometh. 30mg/ml inj. IM ONE (15:25)
--- NOTE | 2018-11-01 15:25 | NUR ---
Shana PORTILLO requested I place a verbal order for toradol 15 mg IM once now. Will administer medications per md orders.
== END 2018-11-01 16:01 | disposition left against medical advice (07) ==
LOC: ER 13:36
DX: G89.29 Other chronic pain (principal); M54.5 Low back pain; I48.91 Unspecified atrial fibrillation; I11.0 Hypertensive heart disease with heart failure; I50.9 Heart failure, unspecified; E78.00 Pure hypercholesterolemia, unspecified; J44.9 Chronic obstructive pulmonary disease, unspecified; K21.9 Gastro-esophageal reflux disease without esophagitis; Z86.73 Personal history of transient ischemic attack (TIA), and cerebral infarction without residual deficits; E03.9 Hypothyroidism, unspecified; M19.90 Unspecified osteoarthritis, unspecified site; Z86.14 Personal history of Methicillin resistant Staphylococcus aureus infection; F12.90 Cannabis use, unspecified, uncomplicated; F15.90 Other stimulant use, unspecified, uncomplicated; F11.90 Opioid use, unspecified, uncomplicated; Z90.49 Acquired absence of other specified parts of digestive tract; Z98.890 Other specified postprocedural states; Z59.0 Homelessness; Z88.8 Allergy status to other drugs, medicaments and biological substances; Z79.82 Long term (current) use of aspirin; Z79.899 Other long term (current) drug therapy
CPT/HCPCS: 96372; 99283; J1885; 99284

== ENCOUNTER 2018-11-08 12:04 | Emergency (ER) | payer MEDICARE, MEDICAID ==
[~2018-11-08] VITALS: Ht 160 cm; Wt 61.4 kg
[2018-11-08 12:10] VITALS: BP 141/91
[2018-11-08] MEDS ORDERED: ketorolac trometh. 30mg/ml inj. IM ONE (13:10)
[2018-11-09] MEDS ORDERED: TRAM50TA2 PO (20:15)
== END 2018-11-08 13:45 | disposition home or self-care (01) ==
LOC: ER 12:05
DX: M54.42 Lumbago with sciatica, left side (principal); M54.41 Lumbago with sciatica, right side; N28.9 Disorder of kidney and ureter, unspecified; I48.91 Unspecified atrial fibrillation; I11.0 Hypertensive heart disease with heart failure; I50.9 Heart failure, unspecified; Z86.73 Personal history of transient ischemic attack (TIA), and cerebral infarction without residual deficits; E78.00 Pure hypercholesterolemia, unspecified; J44.9 Chronic obstructive pulmonary disease, unspecified; K21.9 Gastro-esophageal reflux disease without esophagitis; E03.9 Hypothyroidism, unspecified; M19.90 Unspecified osteoarthritis, unspecified site; Z86.14 Personal history of Methicillin resistant Staphylococcus aureus infection; F12.90 Cannabis use, unspecified, uncomplicated; F15.90 Other stimulant use, unspecified, uncomplicated; F11.90 Opioid use, unspecified, uncomplicated; Z90.49 Acquired absence of other specified parts of digestive tract; Z98.890 Other specified postprocedural states; Z88.8 Allergy status to other drugs, medicaments and biological substances; Z79.82 Long term (current) use of aspirin; Z79.899 Other long term (current) drug therapy; Z59.0 Homelessness
CPT/HCPCS: 96372; 99283; J1885

== ENCOUNTER 2018-11-09 18:23 | Emergency (ER) | payer MEDICARE, MEDICAID ==
[~2018-11-09] VITALS: Ht 160 cm; Wt 60.0 kg
[2018-11-09 18:27] VITALS: BP 162/101
--- NOTE | 2018-11-09 18:43 | NUR ---
PT HERE FOR SECOND DAY IN A ROW FOR ACUTE ON CHRONIC BED PAIN Addendum: 11/09/18 at 1844 by CHRIS BACK PAIN
--- NOTE | 2018-11-09 19:33 | NUR ---
PT UP TO BSC, ABLE TO TRANSFER WITHOUT DIFFICULTY WITH USE OF CANE.
[2018-11-09] MEDS ORDERED: dexamethasone 4mg tablet PO ONE (20:10)
[2018-11-09] MEDS ORDERED: ketorolac trometh. 30mg/ml inj. IM ONE (20:10)
[2018-11-09] MEDS ORDERED: traMADol 50MG tablet PO ONE (20:10)
[2018-11-09] MEDS ORDERED: TRAM50TA2 PO (20:15)
== END 2018-11-09 20:29 | disposition home or self-care (01) ==
LOC: ER 18:24
DX: M54.5 Low back pain (principal); G89.29 Other chronic pain; I48.91 Unspecified atrial fibrillation; I11.0 Hypertensive heart disease with heart failure; I50.9 Heart failure, unspecified; Z86.73 Personal history of transient ischemic attack (TIA), and cerebral infarction without residual deficits; E78.00 Pure hypercholesterolemia, unspecified; J44.9 Chronic obstructive pulmonary disease, unspecified; K21.9 Gastro-esophageal reflux disease without esophagitis; E03.9 Hypothyroidism, unspecified; M19.90 Unspecified osteoarthritis, unspecified site; F17.200 Nicotine dependence, unspecified, uncomplicated; F12.90 Cannabis use, unspecified, uncomplicated; F15.90 Other stimulant use, unspecified, uncomplicated; F11.90 Opioid use, unspecified, uncomplicated; Z90.49 Acquired absence of other specified parts of digestive tract; Z98.890 Other specified postprocedural states; Z88.1 Allergy status to other antibiotic agents; Z88.8 Allergy status to other drugs, medicaments and biological substances; Z79.82 Long term (current) use of aspirin; Z79.899 Other long term (current) drug therapy; Z59.0 Homelessness
CPT/HCPCS: 96372; 99283; J1885; J8540

== ENCOUNTER 2019-12-05 09:11 | Inpatient (IN) | payer BC, MEDICAID ==
[~2019-12-05] VITALS: Ht 167.6 cm; Wt 62.4 kg
[2019-12-05] VITALS (8 sets, daily range): BP systolic 87–123; BP diastolic 48–88
[~2019-12-05 09:11] MED LIST changes: -DULO30CA51 PO; +DULO30CA52 PO; -TRAZ-219 PO; +TRAZ-256 PO
[2019-12-05] MEDS ORDERED: normal saline 1000ML IV soln IVB ONE (09:50)
[2019-12-05 10:01] LABS: BASOPHILS % (AUTO) 0.3 % (0-1); EOSINOPHILS % (AUTO) 0.2 % (0-6); HEMATOCRIT 45.1 % (35.0-45.0); HEMOGLOBIN 14.7 g/dl (12.0-16.0); LYMPHOCYTES # (AUTO) 0.4 X10'3 (1.1-4.8); MEAN CORPUSCULAR HEMOGLOBIN 33.2 PG (27.0-31.0); MEAN CORPUSCULAR HGB CONC 32.6 g/dL (33.0-36.5); MEAN CORPUSCULAR VOLUME 101.9 FL (78-98); MEAN PLATELET VOLUME 9.1 FL (7.4-10.4); MONOCYTES # (AUTO) 0.2 X10'3 (0-0.9); MONOCYTES % (AUTO) 11.3 % (2-12); NEUTROPHILS # (AUTO) 1.4 X10'3 (1.8-7.7); NEUTROPHILS % (AUTO) 67.2 % (42-75); PLATELET COUNT 177 X10'3 (140-440); RED BLOOD COUNT 4.42 X10'6 (4.20-5.60); RED CELL DISTRIBUTION WIDTH 14.8 % (11.5-14.5); WHITE BLOOD COUNT 2.1 X10'3 (4.5-11.0)
--- NOTE | 2019-12-05 10:05 | NUR ---
pt asked that i no longer be her nurse while Sarwat DIEZ and I were talking about POC on pt for IV access. Pt refused further IV attempts. Charge aware. Pt stated to Sarwat DIEZ that she felt like we were not paying attention to her.
[2019-12-05 10:16] LABS: ALANINE AMINOTRANSFERASE 123 U/L (12-78); ALBUMIN 3.4 G/DL (3.4-5.0); ALBUMIN/GLOBULIN RATIO 0.8 (1.1-1.5); ALKALINE PHOSPHATASE 156 IU/L (46-116); ANION GAP 14 (8-16); ASPARTATE AMINO TRANSFERASE 141 U/L (10-37); BILIRUBIN,TOTAL 0.9 MG/DL (0.1-1.0); BLOOD UREA NITROGEN 28 MG/DL (7-18); BUN/CREATININE RATIO 11.2 (6.6-38.0); CALCIUM 9.3 MG/DL (8.5-10.1); CHLORIDE 103 MMOL/L (99-107); CREATININE 2.49 MG/DL (0.40-0.90); GLUCOSE 109 MG/DL (70-104); POTASSIUM 4.2 MMOL/L (3.5-5.1); SODIUM 142 MMOL/L (135-145); TOTAL CARBON DIOXIDE 25.4 MMOL/L (24-32); TOTAL PROTEIN 7.7 G/DL (6.4-8.2); eGFR 19 ML/MIN
[2019-12-05] MEDS ORDERED: LORazepam 2 mg/ml vial IM ONE (10:20)
[2019-12-05 10:25] LABS: ANISOCYTOSIS 1+; PLATELET ESTIMATE NORMAL; TOTAL CELLS COUNTED 100; TOXIC GRANULATION 1+
[2019-12-05 10:26] LABS: TOXIC VACUOLATION 1+
[2019-12-05] MEDS ORDERED: cefepime 2g/NS 100ml ADVANTAGE 100 ML IV STA (10:43)
[2019-12-05] MEDS ORDERED: azithromycin/NS 500mg/250ml 250 ML IV ONE (10:45)
[2019-12-05] MEDS ORDERED: normal saline 1000ML IV soln IV ONE (10:50)
[2019-12-05] MEDS ORDERED: CEFEPIME 2gm in D5W 50mL 50 ML IV STA (10:58)
--- NOTE | 2019-12-05 11:08 | NUR ---
Assited pt to the restroom. Upon returning, the pt got into bed and stated "I need some benzos". When I asked the pt for clarification, she stated "ya know, for anxiety".
[2019-12-05] MEDS ORDERED: LORazepam 2 mg/ml vial IV ONE (11:10)
--- NOTE | 2019-12-05 11:12 | NUR ---
BANDAR at bedside, asked if the pt had received 0.5 IM dose of ativan. The pt responded that she hadn't received the Ativan, and then asked what dose she was receiving. After hearing dose of Ativan, the pt responded "oh, that's not going to touch me. I can have more". Pt then went on to state "I'm not med seeking or nothing".
[2019-12-05] MEDS ORDERED: acetaminophen 325mg tablet PO PRN ×2 (11:45)
[2019-12-05] MEDS ORDERED: levoFLOXACIN-Levaquin 250mg/D5 50 ML IV SCH (11:45)
[2019-12-05] MEDS ORDERED: HYDROcodone/acetaminophen 10/325mg tab PO PRN (11:45)
[2019-12-05] MEDS ORDERED: potassium Cl 20mEq/100mL bag 100 ML IV PRN ×2 (11:45)
[2019-12-05] MEDS ORDERED: ondansetron/PF 4mg/2ml inj IV PRN (11:45)
[2019-12-05] MEDS ORDERED: morphine 4 MG/ML inj SYRINge IV PRN (11:45)
[2019-12-05] MEDS ORDERED: potassium CL 10mEq/100ml bag 100 ML IV PRN ×2 (11:45)
[2019-12-05] MEDS ORDERED: potassium Cl 20 mEq SR tablet PO PRN ×2 (11:45)
[2019-12-05] MEDS ORDERED: azithromycin/NS 500mg/250ml 250 ML IV SCH (11:45)
[2019-12-05] MEDS ORDERED: LIDOcaine 2% 10ml TOPICAL JELLY (Urojet) TP ONE (11:45)
[2019-12-05] MEDS ORDERED: normal saline 1000ml 1,000 ML IV SCH (11:45)
[2019-12-05] MEDS ORDERED: morphine 2 MG/ML inj. syringe IV PRN (11:45)
[2019-12-05 13:55] LABS: CLARITY,URINE CLOUDY (Clear); GLUCOSE, URINE NEGATIVE (Neg); KETONES,URINE TRACE mg/dl (Neg); LEUKOCYTE ESTERASE ,URINE NEGATIVE (Neg); NITRITES, URINE NEGATIVE (Neg); OCCULT BLOOD,URINE SMALL (Neg); PH,URINE 5.5 (4.8-8.0); PROTEIN,URINE 30 mg/dl (Neg)
[2019-12-05 14:01] LABS: COLOR,URINE DARK YELLOW (Yellow); UA COLLECTION TYPE FOLEY CATH
[2019-12-05 14:05] LABS: AMORPHOUS URATES 3+; BACTERIA,URINE FEW /HPF (Neg); MUCUS STRANDS NONE SEEN /LPF (Neg); RBC,URINE 0-2 /HPF (0-2); RENAL CELLS, URINE FEW /HPF; SQUAMOUS EPITHELIAL CELL,UR NONE SEEN /LPF (FEW); WBC,URINE 0-4 /HPF (0-4)
[2019-12-05 14:06] LABS: TOTAL PROTEIN,URINE RANDOM 127.8 MG/DL
[2019-12-05 14:08] LABS: CELLULAR CAST 0-4 /LPF (NEGATIVE); URINE AMPHETAMINE SCREEN POSITIVE (Neg); URINE BARBITUATE SCREEN NEGATIVE (Neg); URINE BENZODIAZEPINES SCREEN POSITIVE (Neg); URINE CANNABINOID SCREEN POSITIVE (Neg); URINE COCAINE SCREEN NEGATIVE (Neg); URINE METHADONE SCREEN NEGATIVE (Neg); URINE OPIATE SCREEN POSITIVE (Neg); URINE PHENCYCLIDINE SCREEN NEGATIVE (Neg)
[2019-12-05 14:47] LABS: UA EOSINOPHILS NO EOS /HPF
[2019-12-05 15:06] LABS: ABG BASE EXCESS -5.9 mmol/L (-2.0-3.0); ABG HCO3 21.6 mmol/L (22.0-26.0); ABG OXYGEN SATURATION 93.9 % (95-98); ABG PCO2 (T) 51.4 mmHg (35.0-45.0); ABG PH (T) 7.242 (7.350-7.450); ABG PO2 (T) 78.2 mmHg (83-108); ALLEN'S TEST POSITIVE; FCOHb 0.4 % (0.5-1.5); FLOW 3 L/min; FMetHb 0.2 % (0.3-1.12); FO2Hb 93.3 % (94-100); TOTAL HEMOGLOBIN 11.6 G/dl (12.0-16.0)
[2019-12-05] MEDS ORDERED: MINO100T PO (15:10)
[2019-12-05] MEDS ORDERED: SACU1TAB PO (15:10)
[2019-12-05] MEDS ORDERED: MELO-100 PO (15:10)
[2019-12-05] MEDS ORDERED: CLON-473 PO (15:10)
[2019-12-05] MEDS ORDERED: PANT20TA3 PO (15:12)
[2019-12-05 15:16] LABS: ABG BASE EXCESS -8.5 mmol/L (-2.0-3.0); ABG HCO3 19.3 mmol/L (22.0-26.0); ABG OXYGEN SATURATION 88.3 % (95-98); ABG PCO2 (T) 49.8 mmHg (35.0-45.0); ABG PH (T) 7.206 (7.350-7.450); ABG PO2 (T) 62.1 mmHg (83-108); ALLEN'S TEST POSITIVE; FLOW 3 L/min; FO2Hb 87.4 % (94-100); TOTAL HEMOGLOBIN 10.5 G/dl (12.0-16.0)
--- NOTE | 2019-12-05 15:18 | NUR ---
DM consult received, A1c <7, DM education not needed at this time. Addendum: 12/05/19 at [address] Amended: Links added.
[2019-12-05 15:21] LABS: OXYGEN SATURATION (MIXED VEN) 68.4 % (60-80); PO2 MIXED VENOUS (TEMP COR) 37.8 mmHg (35-46)
[2019-12-05] MEDS ORDERED: NORepinephrine 8mg/ 250ml NS 250 ML IV SCH (15:50)
--- NOTE | 2019-12-05 16:19 | NUR ---
Patient arrived at 1300 and was asleep/difficult to arouse; however, [facility], patient awoke and appeared confused/restless. Patient placed on bedside monitor. During PICC insertion, patient became somnolent and difficult to arouse; Dr. Mustafa aware and ABG ordered with respiratory acidosis noted; orders per MD for BiPap while asleep. Patient woke up during repositioning and has been awake since and appearing tearful/emotional asking for anxiety medication. MD aware of (+) tox screen.
--- NOTE | 2019-12-05 16:45 | NUR ---
Patient appears anxious/restless; Dr. Mustafa at bedside. Vital signs stable. No new orders at this time.
--- NOTE | 2019-12-05 18:20 | NUR ---
Problems reprioritized. Patient report given, questions answered & plan of care reviewed with Sarwat DIEZ.
[2019-12-05] MEDS ORDERED: albuterol 2.5 MG/3 ML nebule NEB PRN (18:40)
--- NOTE | 2019-12-05 19:00 | NUR ---
Patient in room ICU 2038. I have received report from Tony DIEZ and had the opportunity to ask questions and assume patient care.
--- NOTE | 2019-12-05 19:05 | NUR ---
PT is asking for ativan or something like it for anxiety, Morphine and suboxone was offered and she said it wouldn't work. When dr Mustafa was asked and he felt that it was not necessary to give her ativan at this time. Dr. Mustafa said he would continue her home meds and that was it. , She had also received ativan earlier and she was difficult to wake afterward. The patient was notified of this and she said that she would go home if she didn't receive any ativan or some sort of "benzo" she would go home.
[2019-12-05] MEDS ORDERED: heparin, porcine 5000 units/ml vial SQ SCH (20:00)
[2019-12-05] MEDS ORDERED: docusate sod 100mg capsule PO SCH (20:00)
--- NOTE | 2019-12-05 20:30 | NUR ---
I notified Gustavo that the patient was wanting to leave. Gustavo said his stance was the same as DR. Mustafa about the Benzodiazepines and if she wanted to leave against medical advice it was her prerogative. I told her that I couldn't get the ativan and she said that she was then going to leave. I explained to her that she was leaving against medical advice and it was potentially dangerous because she was being treated for possible sepsis. She said she still wanted to go home because she had a bottle of "fireball" waiting for her and insisted she would get better treatment at home than here. She was advised against leaving and also advised against drinking when she got home. She insisted on leaving anyway saying that if she wasn't going to "get treated" she might as well leave. Her silver catheter was discontinued as well as her PICC line, The catheter tip of the picc line was intact. The patient got dressed in her street clothes and received her purse. when asked she said all the contents where present. A wheel chair was offered and she refused. She was escorted down through the lobby. We went though the ER so she could use the phone. She called the [employer] cab company and proceeded to sit out on the bench to wait for her cab. He medication which was was stored in the pharmacy was retrieved and given to her.
[2019-12-05] MEDS ORDERED: gabapentin 300mg capsule PO SCH (21:00)
[2019-12-05] MEDS ORDERED: cloNIDine 0.1 mg tablet PO SCH (21:00)
[2019-12-06] MEDS ORDERED: levoTHYROXINE 75mcg tablet PO SCH (07:00)
[2019-12-06] MEDS ORDERED: buprenorphine/naloxone 2-0.5mg sublingual tablet SL SCH (08:00)
[2019-12-06] MEDS ORDERED: duloxetine 30mg CAPSULE.DR PO SCH (12:30)
== END 2019-12-05 20:49 | disposition left against medical advice (07) | DRG 871 ==
LOC: ER 09:11 → ED HOLD 11:45 → ICU 2S 12:58
PROVIDERS: ADMIT Internal Medicine Critical Care Medicine; ATTEND Internal Medicine Critical Care Medicine
PROC: 02HV33Z Insertion of Infusion Device into Superior Vena Cava, Percutaneous Approach (ICD-10-PCS; principal; 2019-12-05)
PROC: 4A02X4A Measurement of Cardiac Electrical Activity, Guidance, External Approach (ICD-10-PCS; 2019-12-05)
DX: A41.9 Sepsis, unspecified organism (principal); J18.9 Pneumonia, unspecified organism; R65.21 Severe sepsis with septic shock; R57.1 Hypovolemic shock; J44.0 Chronic obstructive pulmonary disease with (acute) lower respiratory infection; N17.9 Acute kidney failure, unspecified; I13.0 Hypertensive heart and chronic kidney disease with heart failure and stage 1 through stage 4 chronic kidney disease, or unspecified chronic kidney disease; E03.9 Hypothyroidism, unspecified; I48.0 Paroxysmal atrial fibrillation; I50.9 Heart failure, unspecified; R09.02 Hypoxemia; E78.00 Pure hypercholesterolemia, unspecified; F12.90 Cannabis use, unspecified, uncomplicated; B19.20 Unspecified viral hepatitis C without hepatic coma; N18.3 Chronic kidney disease, stage 3 (moderate); F32.9 Major depressive disorder, single episode, unspecified; F41.9 Anxiety disorder, unspecified; K21.9 Gastro-esophageal reflux disease without esophagitis; M19.90 Unspecified osteoarthritis, unspecified site; F17.210 Nicotine dependence, cigarettes, uncomplicated; Z53.29 Procedure and treatment not carried out because of patient's decision for other reasons; Z83.3 Family history of diabetes mellitus; Z86.73 Personal history of transient ischemic attack (TIA), and cerebral infarction without residual deficits; Z86.14 Personal history of Methicillin resistant Staphylococcus aureus infection; Z59.0 Homelessness; Z88.8 Allergy status to other drugs, medicaments and biological substances; Z90.49 Acquired absence of other specified parts of digestive tract; Z79.899 Other long term (current) drug therapy
CPT/HCPCS: 36415; 36573; 36600; 71045; 76937; 80053; 80305; 81001; 82570; 82803; 82810; 83605; 83880; 84145; 84156; 84300; 84484; 85018; 85025; 87040; 87081; 87207; 87635; 93005; 94660; 94760; 96365; 96375; 99291; G0378; J0456; J0692; J1956; J2060; J7030

== ENCOUNTER 2020-02-02 09:44 | Emergency (ER) | payer BC, MEDICAID ==
[~2020-02-02] VITALS: Ht 160 cm; Wt 57.3 kg
[~2020-02-02 09:44] MED LIST changes: -ASPI-41 PO; -ATEN-168 PO; +CLON-473 PO; -DULO60CA45 PO; -LISI-600 PO; +MELO-100 PO; +MINO100T PO; +PANT20TA3 PO; -PANT40TA4 PO; +SACU1TAB PO; -TRAZ-256 PO
[2020-02-02 09:46] VITALS: BP 172/92
== END 2020-02-02 10:44 | disposition home or self-care (01) ==
LOC: ER 09:45
DX: M25.562 Pain in left knee (principal); I48.91 Unspecified atrial fibrillation; I50.9 Heart failure, unspecified; E78.00 Pure hypercholesterolemia, unspecified; J44.9 Chronic obstructive pulmonary disease, unspecified; I11.0 Hypertensive heart disease with heart failure; K21.9 Gastro-esophageal reflux disease without esophagitis; E03.9 Hypothyroidism, unspecified; M19.90 Unspecified osteoarthritis, unspecified site; F41.9 Anxiety disorder, unspecified; F32.9 Major depressive disorder, single episode, unspecified; F12.90 Cannabis use, unspecified, uncomplicated; F15.90 Other stimulant use, unspecified, uncomplicated; F11.90 Opioid use, unspecified, uncomplicated; Z59.0 Homelessness; Z86.14 Personal history of Methicillin resistant Staphylococcus aureus infection; Z90.49 Acquired absence of other specified parts of digestive tract; Z98.890 Other specified postprocedural states; Z88.8 Allergy status to other drugs, medicaments and biological substances; Z79.899 Other long term (current) drug therapy
CPT/HCPCS: 73564; 99283

== ENCOUNTER 2020-07-29 12:16 | Inpatient (IN) | payer BC, MEDICAID ==
[~2020-07-29] VITALS: Ht 160 cm; Wt 59.1 kg
[~2020-07-29 12:16] MED LIST changes: +ALBU6.7H9 IH; -ALBU8.5H8 INH; +ASPI-1071 PO; +ATOR20TA PO; +BUPR1FIL25 SL; -BUPR1FIL5 SL; -CLON-473 PO; -DULO30CA52 PO; +DULO60CA65 PO; -FURO40TA4 PO; +GABA300C PO; -GABA600T13 PO; +LACT10SO PO; +LORA-269 PO; -MELO-100 PO; -MINO100T PO; +PANT20TA18 PO; -PANT20TA3 PO; -SACU1TAB PO; +SACU1TAB7 PO
[2020-07-29] MEDS ORDERED: LORazepam 1 MG tablet PO ONE (12:20)
[2020-07-29] MEDS ORDERED: cloNIDine 0.1 mg tablet PO ONE (12:20)
[2020-07-29] MEDS ORDERED: normal saline 1000ML IV soln IVB ONE (12:50)
[2020-07-29] MEDS ORDERED: diltiazem 5mg/ml 5ml inj. IV ONE (12:50)
[2020-07-29] MEDS ORDERED: LORazepam 2 mg/ml vial IV ONE ×3 (13:15→17:00)
[2020-07-29 14:58] LABS: BASOPHILS % (AUTO) 0.4 % (0-1); EOSINOPHILS % (AUTO) 0 % (0-6); HEMATOCRIT 40.2 % (35.0-45.0); HEMOGLOBIN 13.6 g/dl (12.0-16.0); LYMPHOCYTES # (AUTO) 1.5 X10'3 (1.1-4.8); LYMPHOCYTES % (AUTO) 14.4 % (21-51); MEAN CORPUSCULAR HGB CONC 33.8 g/dL (33.0-36.5); MEAN CORPUSCULAR VOLUME 97.6 FL (78-98); MEAN PLATELET VOLUME 8.7 FL (7.4-10.4); MONOCYTES # (AUTO) 0.8 X10'3 (0-0.9); MONOCYTES % (AUTO) 7.3 % (2-12); NEUTROPHILS # (AUTO) 8.3 X10'3 (1.8-7.7); NEUTROPHILS % (AUTO) 77.9 % (42-75); PLATELET COUNT 191 X10'3 (140-440); RED BLOOD COUNT 4.12 X10'6 (4.20-5.60); RED CELL DISTRIBUTION WIDTH 15.1 % (11.5-14.5); WHITE BLOOD COUNT 10.7 X10'3 (4.5-11.0)
[2020-07-29] MEDS ORDERED: metoprolol tartrate 1mg/ml inj IV ONE (15:10)
[2020-07-29 15:19] LABS: ALANINE AMINOTRANSFERASE 152 U/L (12-78); ALBUMIN/GLOBULIN RATIO 0.7 (1.1-1.5); ALKALINE PHOSPHATASE 213 IU/L (46-116); ANION GAP 13 (8-16); ASPARTATE AMINO TRANSFERASE 276 U/L (10-37); BILIRUBIN,TOTAL 1.3 MG/DL (0.1-1.0); BLOOD UREA NITROGEN 13 MG/DL (7-18); BUN/CREATININE RATIO 13.5 (6.6-38.0); CALCIUM 8.3 MG/DL (8.5-10.1); CHLORIDE 103 MMOL/L (99-107); CREATININE 0.96 MG/DL (0.40-0.90); GLUCOSE 148 MG/DL (70-104); POTASSIUM 3.3 MMOL/L (3.5-5.1); SODIUM 142 MMOL/L (135-145); TOTAL CARBON DIOXIDE 26.3 MMOL/L (24-32); TOTAL PROTEIN 7.5 G/DL (6.4-8.2); eGFR 57 ML/MIN
[2020-07-29] MEDS ORDERED: aspirin 81mg tab.chew PO ONE (15:25)
[2020-07-29] MEDS ORDERED: enoxaparin 100mg/ml syringe SUBCUT ONE (15:25)
[2020-07-29] MEDS ORDERED: diltiazem-NS 100mg/100ml 100 ML IV SCH ×3 (15:35→23:21)
[2020-07-29] MEDS ORDERED: enoxaparin 60mg/0.6ml syringe SUBCUT ONE (15:35)
[2020-07-29] MEDS ORDERED: LORazepam 2 mg/ml vial ONE (15:46)
[2020-07-29] MEDS ORDERED: LORazepam 2 mg/ml vial IV STA (15:59)
[2020-07-29] MEDS ORDERED: HYDROcodone/acetaminophen 10/325mg tab PO PRN (16:00)
[2020-07-29] MEDS ORDERED: ondansetron/PF 4mg/2ml inj IV PRN (16:00)
[2020-07-29] MEDS ORDERED: acetaminophen 325mg tablet PO PRN ×2 (16:00)
[2020-07-29] MEDS ORDERED: magnesium 2GM in 50ml NS 50 ML IV PRN (16:00)
[2020-07-29] MEDS ORDERED: magnesium hydroxide 30ml (MOM) UD suspension PO PRN (16:00)
[2020-07-29] MEDS ORDERED: morphine 2 MG/ML inj. syringe IV PRN ×2 (16:00)
[2020-07-29] MEDS ORDERED: potassium Cl 20 mEq SR tablet PO PRN (16:00)
[2020-07-29] MEDS ORDERED: potassium Cl 40MEQ/1/2NS 520ml 520 ML IV PRN ×2 (16:00)
[2020-07-29] MEDS ORDERED: mag hydrox/Alum hydrox/simeth 30ml oral suspension PO PRN (16:00)
[2020-07-29] MEDS ORDERED: normal saline 1000ml 1,000 ML IV SCH (16:00)
[2020-07-29] MEDS ORDERED: magnesium 4gm in 100ml NS 100 ML IV PRN (16:00)
[2020-07-29] MEDS ORDERED: LORazepam 2 mg/ml vial IV PRN (16:00)
[2020-07-29] MEDS ORDERED: HYDROcodone/acetaminophen 5mg/325mg tablet PO PRN (16:00)
[2020-07-29] MEDS: albuterol 2.5 MG/3 ML nebule NEB SCH ×2 (16:41→16:46)
--- NOTE | 2020-07-29 16:41 | NUR ---
PATIENT HAVING ANXIETY ATTACK,SWEATY AND TACHYPNEIC,REPORTS SHE FEELS LIKE"SHE'S GOING TO ",DR. NIXON CALLED AND MADE AWARE THAT PATIENT RECEIVED ATIVAN ALMOST AN HOUR AGO TOTAL OF 2 MG,NO NEW ORDER FROM MD.WE WILL MONITOR.
--- NOTE | 2020-07-29 16:41 | NUR ---
PATIENT'S HR STILL 124,NO PARAMETER,CALLED AREN/PHARMACY TO INCLUDE PARAMETER.
[2020-07-29] MEDS ORDERED: nitroGLYCERIN 1gm ointment UD TP ONE (16:55)
--- NOTE | 2020-07-29 17:08 | NUR ---
DR NIXON AT BEDSIDE.
--- NOTE | 2020-07-29 17:09 | NUR ---
ECHO AT BEDSIDE.
--- NOTE | 2020-07-29 17:44 | NUR ---
patient's iv infiltrated.
--- NOTE | 2020-07-29 17:44 | NUR ---
patient is a hard stick.
[2020-07-29] MEDS ORDERED: ASPI-611 PO (18:28)
[2020-07-29] MEDS ORDERED: ATEN50TA2 PO (18:28)
[2020-07-29] MEDS ORDERED: DICL-212 PO (18:28)
[2020-07-29] MEDS ORDERED: GABA600T13 PO (18:28)
[2020-07-29] MEDS ORDERED: ATOR20TA66 PO (18:28)
--- NOTE | 2020-07-29 19:27 | NUR ---
paged about 2nd trop at 1.14
[2020-07-29 19:45] VITALS: BP 148/95
[2020-07-29] MEDS: methylPREDNISolone sod succ/PF 40mg inj. IV SCH (19:57)
[2020-07-29] MEDS: heparin, porcine 5000 units/ml vial SQ SCH ×2 (19:57→20:00)
[2020-07-29] MEDS: levalbuterol 0.63mg/3ml nebule IH SCH ×2 (20:00→23:27)
[2020-07-29] MEDS ORDERED: heparin 25,000 UNIT/250ml bag 250 ML IV SCH (20:10)
[2020-07-29] MEDS: potassium Cl 20 mEq SR tablet PO PRN (20:19)
[2020-07-29] MEDS: K and/or MAG REPLACEMENT MC SCH (20:26)
[2020-07-29 20:42] LABS: BASOPHILS % (AUTO) 0.3 % (0-1); EOSINOPHILS % (AUTO) 0 % (0-6); HEMATOCRIT 41.3 % (35.0-45.0); HEMOGLOBIN 13.7 g/dl (12.0-16.0); LYMPHOCYTES # (AUTO) 1.6 X10'3 (1.1-4.8); LYMPHOCYTES % (AUTO) 14.5 % (21-51); MEAN CORPUSCULAR HEMOGLOBIN 32.2 PG (27.0-31.0); MEAN CORPUSCULAR HGB CONC 33.2 g/dL (33.0-36.5); MEAN CORPUSCULAR VOLUME 97.1 FL (78-98); MEAN PLATELET VOLUME 8.9 FL (7.4-10.4); MONOCYTES # (AUTO) 1.2 X10'3 (0-0.9); MONOCYTES % (AUTO) 10.8 % (2-12); NEUTROPHILS # (AUTO) 8.2 X10'3 (1.8-7.7); NEUTROPHILS % (AUTO) 74.4 % (42-75); PLATELET COUNT 165 X10'3 (140-440); RED BLOOD COUNT 4.25 X10'6 (4.20-5.60); RED CELL DISTRIBUTION WIDTH 15.4 % (11.5-14.5); WHITE BLOOD COUNT 11.1 X10'3 (4.5-11.0)
[2020-07-29 20:56] LABS: PARTIAL THROMBOPLASTIN TIME 32 SECONDS (22-32)
[2020-07-29] MEDS ORDERED: temazepam 15mg capsule PO PRN (21:00)
--- NOTE | 2020-07-29 21:31 | NUR ---
Paged Dr. Mendoza. PAGER ID: [phone] MESSAGE: This is CHARY Parks fr U x [id number]. Pt Yenifer Ho 70 F, DX : Afib RVR, Anxiety. Pt is on Heparin drip and Cardizem drip. Do you still want to continue her Cardizem drip? Thanks!
[2020-07-29 22:00] VITALS: BP 129/78
[2020-07-30] VITALS (8 sets, daily range): BP systolic 84–147; BP diastolic 44–95
--- NOTE | 2020-07-30 01:13 | NUR ---
Paged Dr. Mendoza. PAGER ID: [phone] MESSAGE: This is CHARY Parks fr U x 1861. Re: Pt Yenifer Ho 70 F, DX : Ro RVR, Anxiety. Pt is a very hard stick, can we draw blood from her feet? Thanks!
--- NOTE | 2020-07-30 02:00 | NUR ---
Unable to draw blood from the pt. Four staff tried it. Charge nurse asked ED's help.
[2020-07-30] MEDS: potassium Cl 20 mEq SR tablet PO PRN (02:10)
[2020-07-30] MEDS: levalbuterol 0.63mg/3ml nebule IH SCH ×6 (03:17→23:07)
[2020-07-30 03:23] LABS: BASOPHILS % (AUTO) 0.5 % (0-1); EOSINOPHILS % (AUTO) 0.1 % (0-6); HEMATOCRIT 39.3 % (35.0-45.0); HEMOGLOBIN 13.4 g/dl (12.0-16.0); LYMPHOCYTES # (AUTO) 2.4 X10'3 (1.1-4.8); LYMPHOCYTES % (AUTO) 27.4 % (21-51); MEAN CORPUSCULAR HEMOGLOBIN 33.3 PG (27.0-31.0); MEAN CORPUSCULAR HGB CONC 34.1 g/dL (33.0-36.5); MEAN CORPUSCULAR VOLUME 97.7 FL (78-98); MEAN PLATELET VOLUME 8.5 FL (7.4-10.4); MONOCYTES # (AUTO) 0.7 X10'3 (0-0.9); MONOCYTES % (AUTO) 8.2 % (2-12); NEUTROPHILS # (AUTO) 5.5 X10'3 (1.8-7.7); NEUTROPHILS % (AUTO) 63.8 % (42-75); PLATELET COUNT 147 X10'3 (140-440); RED BLOOD COUNT 4.02 X10'6 (4.20-5.60); RED CELL DISTRIBUTION WIDTH 14.8 % (11.5-14.5); WHITE BLOOD COUNT 8.7 X10'3 (4.5-11.0)
[2020-07-30 03:41] LABS: ALANINE AMINOTRANSFERASE 144 U/L (12-78); ALBUMIN 2.9 G/DL (3.4-5.0); ALBUMIN/GLOBULIN RATIO 0.7 (1.1-1.5); ALKALINE PHOSPHATASE 204 IU/L (46-116); ANION GAP 6 (8-16); ASPARTATE AMINO TRANSFERASE 244 U/L (10-37); BILIRUBIN,TOTAL 1.9 MG/DL (0.1-1.0); BLOOD UREA NITROGEN 20 MG/DL (7-18); BUN/CREATININE RATIO 21.5 (6.6-38.0); CALCIUM 8.1 MG/DL (8.5-10.1); CHLORIDE 105 MMOL/L (99-107); CREATININE 0.93 MG/DL (0.40-0.90); GLUCOSE 111 MG/DL (70-104); POTASSIUM 4.4 MMOL/L (3.5-5.1); SODIUM 142 MMOL/L (135-145); TOTAL CARBON DIOXIDE 31.4 MMOL/L (24-32); TOTAL PROTEIN 7.1 G/DL (6.4-8.2); eGFR 60 ML/MIN
[2020-07-30 03:43] LABS: CHOLESTEROL 105 MG/DL (0-200); HDL CHOLESTEROL 52 MG/DL (35-60); LDL CHOLESTEROL 50 MG/DL (50-100); LIPASE < 50 U/L (73-393); MAGNESIUM 1.4 MG/DL (1.5-2.4); TRIGLYCERIDES 79 MG/DL (20-135)
[2020-07-30] MEDS ORDERED: heparin 10,000 units/1 ML INJ IV PRN (03:55)
--- NOTE | 2020-07-30 05:58 | NUR ---
PAGER ID: [phone] MESSAGE: FYI : Pt Yenifer Ho 70 F, DX : Afib RVR, Anxiety has just converted to Sinus Rhythm. CHARY Parks - PCU x [phone]
--- NOTE | 2020-07-30 06:10 | NUR ---
Problems reprioritized. Patient report given, questions answered & plan of care reviewed with CHARY Aguirre.
[2020-07-30] MEDS: thiamine 100mg tablet PO SCH (07:59)
[2020-07-30] MEDS: nicotine 14mg patch - 24hr TD SCH (08:00)
[2020-07-30] MEDS: K and/or MAG REPLACEMENT MC SCH ×2 (08:00→19:08)
[2020-07-30] MEDS: LORazepam 1 MG tablet PO PRN ×4 (08:26→23:04)
[2020-07-30] MEDS ORDERED: gabapentin 300mg capsule PO PRN (10:15)
[2020-07-30] MEDS ORDERED: LORazepam 1 MG tablet PO PRN (10:15)
[2020-07-30] MEDS ORDERED: albuterol 2.5 MG/3 ML nebule NEB PRN (10:25)
[2020-07-30] MEDS: levoFLOXACIN-Levaquin 500mg/D5 100 ML IV SCH (10:34)
[2020-07-30] MEDS: methylPREDNISolone sod succ/PF 40mg inj. IV SCH ×2 (10:43→19:07)
--- NOTE | 2020-07-30 12:23 | NUR ---
notified. PAGER ID: [phone] MESSAGE: Re: Marleen Ho. [phone]. Is it possible to switch the daily Suboxone does for tomorrow, to start today? thanks. Carla [phone].
[2020-07-30] MEDS: buprenorphine/naloxone 2-0.5mg sublingual tablet SL SCH (13:17)
[2020-07-30] MEDS: magnesium Cl slow-release 64mg tablet PO PRN ×2 (14:36→19:06)
--- NOTE | 2020-07-30 18:15 | NUR ---
Problems reprioritized. Patient report given, questions answered & plan of care reviewed with CHARY Parks.
[2020-07-30] MEDS: lactobacillus rhamnosus 10,000 MMU CELLS/CAPSULE PO SCH (19:06)
[2020-07-30] MEDS: amiodarone 200mg tablet PO SCH (19:07)
[2020-07-30] MEDS: heparin, porcine 5000 units/ml vial SQ SCH (19:07)
[2020-07-30] MEDS: sacubitril/valsartan 49mg-51mg tablet PO SCH (19:30)
[2020-07-30] MEDS ORDERED: diltiazem SR 60mg capsule (twice daily) PO SCH (20:00)
[2020-07-31 02:00] VITALS: BP 113/71
[2020-07-31] MEDS: levalbuterol 0.63mg/3ml nebule IH SCH ×3 (03:11→11:42)
[2020-07-31 06:00] VITALS: BP 109/76
--- NOTE | 2020-07-31 06:03 | NUR ---
Problems reprioritized. Patient report given, questions answered & plan of care reviewed with CHARY Aguirre.
[2020-07-31 07:00] LABS: BASOPHILS % (AUTO) 0.2 % (0-1); EOSINOPHILS % (AUTO) 0 % (0-6); HEMATOCRIT 35.6 % (35.0-45.0); HEMOGLOBIN 11.9 g/dl (12.0-16.0); LYMPHOCYTES # (AUTO) 0.8 X10'3 (1.1-4.8); LYMPHOCYTES % (AUTO) 14.6 % (21-51); MEAN CORPUSCULAR HEMOGLOBIN 33.5 PG (27.0-31.0); MEAN CORPUSCULAR HGB CONC 33.5 g/dL (33.0-36.5); MEAN CORPUSCULAR VOLUME 99.9 FL (78-98); MEAN PLATELET VOLUME 9.8 FL (7.4-10.4); MONOCYTES # (AUTO) 0.2 X10'3 (0-0.9); MONOCYTES % (AUTO) 4.2 % (2-12); NEUTROPHILS # (AUTO) 4.3 X10'3 (1.8-7.7); PLATELET COUNT 104 X10'3 (140-440); RED BLOOD COUNT 3.56 X10'6 (4.20-5.60); RED CELL DISTRIBUTION WIDTH 15.1 % (11.5-14.5); WHITE BLOOD COUNT 5.3 X10'3 (4.5-11.0)
[2020-07-31 07:29] LABS: ALANINE AMINOTRANSFERASE 88 U/L (12-78); ALBUMIN 2.5 G/DL (3.4-5.0); ALBUMIN/GLOBULIN RATIO 0.6 (1.1-1.5); ALKALINE PHOSPHATASE 162 IU/L (46-116); ANION GAP 7 (8-16); ASPARTATE AMINO TRANSFERASE 96 U/L (10-37); BILIRUBIN,TOTAL 1.1 MG/DL (0.1-1.0); BLOOD UREA NITROGEN 22 MG/DL (7-18); BUN/CREATININE RATIO 22.9 (6.6-38.0); CALCIUM 7.9 MG/DL (8.5-10.1); CHLORIDE 105 MMOL/L (99-107); CREATININE 0.96 MG/DL (0.40-0.90); GLUCOSE 147 MG/DL (70-104); LIPASE 61 U/L (73-393); MAGNESIUM 1.6 MG/DL (1.5-2.4); POTASSIUM 4.4 MMOL/L (3.5-5.1); SODIUM 139 MMOL/L (135-145); TOTAL CARBON DIOXIDE 26.8 MMOL/L (24-32); TOTAL PROTEIN 6.4 G/DL (6.4-8.2); eGFR 57 ML/MIN
[2020-07-31] MEDS ORDERED: gabapentin 300mg capsule PO SCH (08:00)
[2020-07-31] MEDS ORDERED: levoTHYROXINE 75mcg tablet PO SCH (08:00)
[2020-07-31] MEDS ORDERED: buprenorphine/naloxone 2-0.5mg sublingual tablet SL SCH (08:00)
[2020-07-31] MEDS: sacubitril/valsartan 49mg-51mg tablet PO SCH (08:00)
[2020-07-31] MEDS ORDERED: duloxetine 30mg CAPSULE.DR PO SCH (08:00)
[2020-07-31] MEDS: K and/or MAG REPLACEMENT MC SCH (08:00)
[2020-07-31] MEDS ORDERED: atorvastatin 20mg tablet PO SCH (08:00)
[2020-07-31] MEDS ORDERED: aspirin 81mg tablet.DR PO SCH (08:00)
[2020-07-31] MEDS ORDERED: atenolol 50mg tablet PO SCH (08:00)
[2020-07-31] MEDS: levoFLOXACIN-Levaquin 500mg/D5 100 ML IV SCH (08:28)
[2020-07-31] MEDS: LORazepam 1 MG tablet PO PRN (08:30)
[2020-07-31] MEDS: thiamine 100mg tablet PO SCH (08:30)
[2020-07-31] MEDS: buprenorphine/naloxone 2-0.5mg sublingual tablet SL SCH (08:30)
[2020-07-31] MEDS: lactobacillus rhamnosus 10,000 MMU CELLS/CAPSULE PO SCH (08:30)
[2020-07-31] MEDS: amiodarone 200mg tablet PO SCH (08:30)
[2020-07-31] MEDS: nicotine 14mg patch - 24hr TD SCH (08:31)
[2020-07-31] MEDS: methylPREDNISolone sod succ/PF 40mg inj. IV SCH (08:31)
[2020-07-31] MEDS: heparin, porcine 5000 units/ml vial SQ SCH (08:41)
[2020-07-31] MEDS ORDERED: FLU VACC QS2020-21(6MOS UP)/PF 60 MCG/0.5 ML SYRINGE IMVAC ONE (10:00)
--- NOTE | 2020-07-31 10:36 | NUR ---
Malnutrition consult: Pt reports 2-13 lb wt loss with decreased appetite. Current documented wt is stable with reported wt hx in EMR. Pt on a heart healthy diet documented with 100% PO intake throughout LOS meeting estimated nutrient needs. No documented edema. Pt appears WDWN per ED report. Pt currently lacks a minimum of two criteria for malnutrition. Will continue to follow. Addendum: 07/31/20 at [address] Amended: Links added.
[2020-07-31 11:00] VITALS: BP 121/83
[2020-07-31] MEDS ORDERED: LEVO125T8 PO (11:22)
[2020-07-31] MEDS ORDERED: NICO-631 TD (11:22)
[2020-07-31] MEDS ORDERED: LORA-269 PO ×2 (11:54→11:59)
--- NOTE | 2020-07-31 12:12 | NUR ---
notified. PAGER ID: [phone] MESSAGE: Re; [phone]. Marleen Ho. Perscription Conflict with Amiodorone is making me unable to finalize DC. Thanks. Carla [phone].
[2020-07-31] MEDS ORDERED: AMIO200T67 PO (12:16)
--- NOTE | 2020-07-31 13:49 | NUR ---
Patient stable for discharge per md orders. Perscriptions sent to [facility] [address]. IV's discontinued with cannulas intact. Armbands cut at time of discharge. Strict return precautions gone over and follow up discussed. Patient ambulated to wheelchair reporting some nausea, emesis bag given. Patient Wheeled to lobby in wheelchair accompanied by RN. Patient Ambulated into private vehicle driven by daughter. Private vehicle seen leaving premises.
== END 2020-07-31 13:50 | disposition home or self-care (01) | DRG 280 ==
LOC: ER 12:17 → ED HOLD 15:56 → PCU 3S 19:20
PROVIDERS: ADMIT Internal Medicine; ATTEND Internal Medicine
DX: I48.0 Paroxysmal atrial fibrillation (principal); I21.A1 Myocardial infarction type 2; J96.20 Acute and chronic respiratory failure, unspecified whether with hypoxia or hypercapnia; J44.1 Chronic obstructive pulmonary disease with (acute) exacerbation; F11.23 Opioid dependence with withdrawal; F13.239 Sedative, hypnotic or anxiolytic dependence with withdrawal, unspecified; E03.9 Hypothyroidism, unspecified; E78.00 Pure hypercholesterolemia, unspecified; F17.210 Nicotine dependence, cigarettes, uncomplicated; F41.0 Panic disorder [episodic paroxysmal anxiety]; G89.4 Chronic pain syndrome; I11.0 Hypertensive heart disease with heart failure; Z20.822 Contact with and (suspected) exposure to COVID-19; I50.9 Heart failure, unspecified; Z60.2 Problems related to living alone; F10.20 Alcohol dependence, uncomplicated; B19.20 Unspecified viral hepatitis C without hepatic coma; F12.90 Cannabis use, unspecified, uncomplicated; F32.9 Major depressive disorder, single episode, unspecified; K21.9 Gastro-esophageal reflux disease without esophagitis; M19.90 Unspecified osteoarthritis, unspecified site; Z83.3 Family history of diabetes mellitus; Z86.73 Personal history of transient ischemic attack (TIA), and cerebral infarction without residual deficits; Z23 Encounter for immunization; Z88.8 Allergy status to other drugs, medicaments and biological substances; Z90.49 Acquired absence of other specified parts of digestive tract; Z91.19 Patient's noncompliance with other medical treatment and regimen; Z71.41 Alcohol abuse counseling and surveillance of alcoholic; Z71.6 Tobacco abuse counseling; F15.10 Other stimulant abuse, uncomplicated
CPT/HCPCS: 36415; 71045; 76937; 80053; 80061; 83690; 83735; 83880; 84439; 84443; 84484; 85025; 85610; 85730; 87081; 87635; 93005; 93306; 93308; 94640; 94760; 96374; 97116; 97161; 99291; G0378; J1644; J1650; J1956; J2060; J2405; J2920; J3490; J7030; J7614; Q2039